=== PATIENT | female | born 1950 | race Caucasian/White ===

== ENCOUNTER 2019-08-22 08:07 | Outpatient (CLI) | payer OTHER, SELFPAY ==
--- NOTE | ~2019-08-22 | MM_ITS ---
EXAMINATION: MM screening [facility] BI w radha HISTORY: Screening mammogram TECHNIQUE: Craniocaudal and mediolateral oblique 3-D tomosynthesis images were obtained and synthetic 2-D images were generated. CAD analysis was submitted and interpreted. COMPARISON: 06/19/2018, 06/01/2017, 03/05/2014 bilateral digital screening mammogram examinations BREAST PARENCHYMAL COMPOSITION: The breasts are almost entirely fatty. FINDINGS: Biopsy marker on each side; history of prior bilateral benign breast biopsies. There is n o evidence of suspicious mass, calcification, or architectural distortion to suggest malignancy in ei ther breast. There has been no suspicious interval change. IMPRESSION: 1. No mammographic evidence of malignancy. 2. Recommend routine screening mammography in one year. BI-RADS Category 1: Negative Reviewed, dictated and finalized at location A.
== END 2019-08-22 08:08 | disposition home or self-care (01) ==
LOC: ANHIMG 08:12
PROVIDERS: PCP Internal Medicine; Visit Provider Internal Medicine
DX: Z12.31 Encounter for screening mammogram for malignant neoplasm of breast (principal)
CPT/HCPCS: 77063; 77067

== ENCOUNTER 2019-11-18 14:41 | Outpatient (CLI) | payer OTHER, SELFPAY ==
--- NOTE | ~2019-11-18 | US_ITS ---
EXAMINATION: US renal BI EXAM DATE: 11/18/2019 15:08 INDICATION: Left-sided abdominal pain. TECHNIQUE: Multiple grayscale and Doppler images of the kidneys were obtained (by a technologist who performed the scan) and subsequently reviewed. There is no prior study for comparison. FINDINGS: Right kidney: There is normal contour and echogenicity. It measures 10.3 x 5.0 x 5.2 centimeters. T here are no focal renal lesions identified. There is no hydronephrosis. Left kidney: There is normal contour and echogenicity. It measures 12.3 x 5.6 x 6.8 centimeters. Th ere are no focal renal lesions identified. There is no hydronephrosis. Bladder unremarkable. Bilateral ureteral jets seen. IMPRESSION: 1. Sonographically unremarkable kidneys. Reviewed, dictated and finalized at location B.
[2019-11-18 15:03] LABS: Alanine Aminotransferase 16 U/L (4-35); Albumin Level 4.2 g/dL (3.5-5.1); Alkaline Phosphatase 89 U/L (38-126); Anion Gap 9 mmol/L (8-16); Aspartate Amino Transferase 23 U/L (14-36); Bilirubin,Total 0.3 mg/dL (0.2-1.3); Blood Urea Nitrogen 36 mg/dL (7-17); Calcium 9.5 mg/dL (8.4-10.2); Carbon Dioxide 23 mmol/L (22-30); Chloride 103 mmol/L (98-107); Estimated Glomerular Filt Rate 37; Glucose 100 mg/dL (65-105); Potassium 4.5 mmol/L (3.4-5.0); Sodium 135 mmol/L (137-145)
== END 2019-11-18 14:42 | disposition home or self-care (01) ==
PROVIDERS: PCP Internal Medicine; Visit Provider Nurse Practitioner
DX: R73.02 Impaired glucose tolerance (oral) (principal); R10.9 Unspecified abdominal pain
CPT/HCPCS: 36415; 76775; 80053

== ENCOUNTER 2020-01-05 10:42 | Outpatient (CLI) | payer OTHER, SELFPAY ==
[2020-01-05 11:41] LABS: Hematocrit 38.4 % (37.0-47.0); Hemoglobin 12.9 g/dL (12.0-15.0); Mean Corpuscular HGB Conc 33.6 g/dl (32-36); Mean Corpuscular Hemoglobin 29.8 pg (26-34); Mean Corpuscular Volume 88.7 fl (80-100); Mean Platelet Volume 9.4 fl (7.4-10.4); Platelet Count Result 282 k/mm3 (150-375); Red Blood Count 4.33 M/mm3 (4.2-5.4); White Blood Count 9.9 K/mm3 (4.5-10.0)
[2020-01-05 11:44] LABS: Add Urine Microscopic? YES; Appearance Urine Cloudy (Clear); Bilirubin Urine Negative (Negative); Blood Urine Negative (Negative); Color Urine Yellow (Yellow); Glucose Urine UA Negative (Negative); Hyaline Casts Urine 20-29 /lpf; Ketones Urine Negative (Negative); Leukocyte Esterase Ur 1+ LEU/UL (NEGATIVE); Mucus Urine Rare /lpf; Nitrate Urine Negative (Negative); Protein Urine Negative (Negative); Specific Grav Ur 1.018 (1.001-1.035); Squamous Epithelial Cell Urine Many /hpf (Few); Urobilinogen Urine Negative mg/dL (<2.0)
[2020-01-05 11:47] LABS: Creatinine Urine 164.6 mg/dL; Total Protein Urine Random 9 mg/dL
[2020-01-05 11:51] LABS: Anion Gap 9 mmol/L (8-16); Blood Urea Nitrogen 30 mg/dL (7-17); Calcium 9.1 mg/dL (8.4-10.2); Carbon Dioxide 25 mmol/L (22-30); Chloride 106 mmol/L (98-107); Estimated Glomerular Filt Rate > 60; Glucose 94 mg/dL (65-105); Phosphorus 3.7 mg/dL (2.5-4.5); Potassium 4.2 mmol/L (3.4-5.0); Sodium 140 mmol/L (137-145)
[2020-01-05 11:58] LABS: Complement C3 133 mg/dL (88-165)
[2020-01-05 12:12] LABS: Erythrocyte Sedimentation Rate 30 mm/hr (0-20)
[2020-01-07 13:01] LABS: Complement Total CH50 >60 U/mL (31-60)
[2020-01-09 00:13] LABS: Kappa\\Lambda Light Chains 1.16 (0.26-1.65); Lambda Light Chain 19.8 mg/L (5.7-26.3)
== END 2020-01-05 10:43 | disposition home or self-care (01) ==
LOC: ANHLAB 10:52
PROVIDERS: PCP Internal Medicine; Visit Provider Internal Medicine Nephrology
DX: R94.4 Abnormal results of kidney function studies (principal)
CPT/HCPCS: 36415; 80069; 81001; 82570; 83883; 84156; 85027; 85652; 86038; 86160; 86162; 86334

== ENCOUNTER 2020-01-07 09:04 | Outpatient (NON) | payer OTHER, SELFPAY | END 2020-01-07 09:05 | PROVIDERS: PCP Internal Medicine; Referring Provider Internal Medicine; Visit Provider Internal Medicine Nephrology | DX: R94.4 Abnormal results of kidney function studies (principal) | CPT/HCPCS: 86335 ==

== ENCOUNTER 2020-04-01 09:13 | Outpatient (CLI) | payer OTHER, SELFPAY ==
[2020-04-01 10:00] LABS: Creatinine Urine 139.3 mg/dL; Total Protein Urine Random 9 mg/dL; Ur Ttl Prot Creatinine Ratio 0.06 mg/mg (0-0.20)
[2020-04-01 10:03] LABS: Anion Gap 6 mmol/L (8-16); Blood Urea Nitrogen 29 mg/dL (7-17); Carbon Dioxide 28 mmol/L (22-30); Chloride 105 mmol/L (98-107); Estimated Glomerular Filt Rate > 60; Glucose 106 mg/dL (65-105); Potassium 4.2 mmol/L (3.4-5.0); Sodium 139 mmol/L (137-145)
== END 2020-04-01 09:14 | disposition home or self-care (01) ==
LOC: ANHLAB 09:17
PROVIDERS: PCP Internal Medicine; Visit Provider Internal Medicine Nephrology
DX: R94.4 Abnormal results of kidney function studies (principal)
CPT/HCPCS: 36415; 80069; 82570; 84156

== ENCOUNTER 2020-05-03 10:18 | Outpatient (CLI) | payer OTHER, SELFPAY ==
[2020-05-03 11:19] LABS: Hemoglobin A1C 5.2 % (<5.7)
[2020-05-03 11:20] LABS: Cholesterol 242 mg/dL (0-200); HDL Direct 34 mg/dL; Triglycerides 398 mg/dL (<150)
[2020-05-03 11:31] LABS: LDL Cholesterol Direct 140 mg/dL
== END 2020-05-03 10:19 | disposition home or self-care (01) ==
PROVIDERS: PCP Internal Medicine; Visit Provider Nurse Practitioner
DX: R73.02 Impaired glucose tolerance (oral) (principal); E78.5 Hyperlipidemia, unspecified
CPT/HCPCS: 36415; 80061; 83036

== ENCOUNTER 2020-09-01 12:08 | Outpatient (CLI) | payer OTHER, SELFPAY ==
--- NOTE | ~2020-09-01 | XR_ITS ---
EXAMINATION: XR_CERV2-3V_CR EXAM DATE: 09/01/2020 12:28 INDICATION: Cervicalgia. TECHNIQUE: Cervical spine frontal, lateral, lateral swimmers, and open-mouth odontoid projections. C omparison is made to prior examination from 02/26/2008. FINDINGS: There is moderate disc disease at C4-5 and C5-6. There is mild reversal of the normal cerv ical lordosis which may be degenerative, positional or spasm. There is 2 mm retrolisthesis C4 on C5. The vertebral bodies are otherwise aligned. The odontoid process is intact. The lateral masses of C 1 line up with C2. Prevertebral soft tissue and pre-dens space are within normal limits. There is mod erate cervical arthropathy overall, with evidence of some amount of neural foraminal stenosis C4-C7. There is been progression in these degenerative changes compared to 2007. IMPRESSION: 1. Up to moderate cervical spondylosis. 2. Reversal normal cervical lordosis. Reviewed, dictated and finalized at location B.
== END 2020-09-01 12:09 | disposition home or self-care (01) ==
PROVIDERS: PCP Internal Medicine; Visit Provider Nurse Practitioner
DX: M54.2 Cervicalgia (principal); M47.812 Spondylosis without myelopathy or radiculopathy, cervical region; M53.82 Other specified dorsopathies, cervical region
CPT/HCPCS: 72040

== ENCOUNTER 2020-10-06 09:56 | Outpatient (CLI) | payer OTHER, SELFPAY ==
[2020-10-06 10:39] LABS: Alanine Aminotransferase 14 U/L (4-35); Albumin Level 4.3 g/dL (3.5-5.1); Alkaline Phosphatase 110 U/L (38-126); Anion Gap 11 mmol/L (8-16); Aspartate Amino Transferase 26 U/L (14-36); Bilirubin,Total 0.5 mg/dL (0.2-1.3); Blood Urea Nitrogen 38 mg/dL (7-17); Calcium 9.3 mg/dL (8.4-10.2); Carbon Dioxide 23 mmol/L (22-30); Chloride 105 mmol/L (98-107); Cholesterol 299 mg/dL (0-200); Estimated Glomerular Filt Rate 41; Glucose 112 mg/dL (65-105); HDL Direct 40 mg/dL; Potassium 4.1 mmol/L (3.4-5.0); Sodium 139 mmol/L (137-145); Triglycerides 293 mg/dL (<150)
[2020-10-06 10:47] LABS: Hemoglobin A1C 5.5 % (<5.7)
[2020-10-06 10:49] LABS: Microalbumin Urine Random 33.8 mg/L (0-16.7)
[2020-10-06 10:49] LABS: LDL Cholesterol Direct 135 mg/dL
[2020-10-06 11:18] LABS: Creatinine Urine 353.5 mg/dL
== END 2020-10-06 09:57 | disposition home or self-care (01) ==
LOC: ANHLAB 09:59
PROVIDERS: PCP Internal Medicine; Visit Provider Nurse Practitioner
DX: R73.02 Impaired glucose tolerance (oral) (principal); E78.5 Hyperlipidemia, unspecified; E55.9 Vitamin D deficiency, unspecified; F32.9 Major depressive disorder, single episode, unspecified
CPT/HCPCS: 36415; 80053; 80061; 82043; 82306; 83036; 84443

== ENCOUNTER 2020-10-19 07:50 | Outpatient (CLI) | payer OTHER, SELFPAY ==
--- NOTE | ~2020-10-19 | MM_ITS ---
EXAMINATION: MM screening [facility] BI w radha HISTORY: Screening TECHNIQUE: Craniocaudal and mediolateral oblique 3-D tomosynthesis images were obtained and synthetic 2-D images were generated. CAD analysis was submitted and interpreted. COMPARISON: Comparison to multiple prior studies sequentially, with oldest reviewed study dated 02/01. BREAST PARENCHYMAL COMPOSITION: There are scattered areas of fibroglandular density. FINDINGS: There is no evidence of suspicious mass, calcification, or architectural distortion to sugg est malignancy in either breast. There has been no suspicious interval change. IMPRESSION: 1. No mammographic evidence of malignancy. 2. Recommend routine screening mammography in one year. BI-RADS Category 1: Negative Reviewed, dictated and finalized at location A.
--- NOTE | ~2020-10-19 | DEXA_ITS ---
Bone Density Report Name: Sarika Arora Age: 70 Sex: Female Ethnicity: White Date of : 1950 Indication: postmenopausal; height loss; hysterectomy; Referring Provider: Juana Sevilla Study: Bone densitometry was performed. Exam Date: October 19, 2020 Accession number: [id number] Bone Density: Region BMD T-score Z-score Classification AP Spine (L1, L2, L3) 1.123 1.0 3.0 Normal Femoral Neck (Left) 0.718 -1.2 0.6 Osteopenia Total Hip (Left) 0.975 0.3 1.7 Normal Total Hip Bilateral Avg 0.952 0.1 1.5 Normal Femoral Neck (Right) 0.659 -1.7 0.0 Osteopenia Total Hip (Right) 0.927 -0.1 1.3 Normal World Health Organization criteria for BMD impression classify patients as: Normal (T-score at or above -1.0), Osteopenia (T-score between -1.0 and -2.5), or Osteoporosis (T-score at or below -2.5). 10-year Fracture Risk(1): Major Osteoporotic Fracture 9.4% Hip Fracture 1.4% Reported Risk Factors: [place] (), Neck BMD=0.659, BMI=37.8 (1) FRAX(R) Version 3.08. Fracture probability calculated for an untreated patient. Fracture probability may be lower if the patient has received treatment. Previous Exams: Region Exam Age BMD T-score BMD Change BMD Change Date g/cm2 vs Baseline vs Previous AP Spine(L1, L2, L3) 10/19/2020 70 1.123 1.0 0.072(6.8%)# -0.013(-1.2%) 04/23/2018 67 1.137 1.1 0.085(8.1%)# 0.085(8.1%)# 11/28/2005 55 1.052 0.3 Total Hip(Left) 10/19/2020 70 0.975 0.3 -0.018(-1.8%)# -0.064(-6.1%)* 04/23/2018 67 1.039 0.8 0.046(4.6%)# 0.046(4.6%)# 11/28/2005 55 0.993 0.4 Total Hip(Right) 10/19/2020 70 0.927 -0.1 -0.025(-2.7%)# -0.025(-2.6%) 04/23/2018 67 0.952 0.1 -0.001(-0.1%)# -0.001(-0.1%)# 11/28/2005 55 0.953 0.1 *Denotes significance at 95% confidence level, LSC for AP Spine = 0.022 g/cm2, LSC for Total Hip = 0.027 g/cm2 Clinical Information Provided by Patient: Has used the following medications: Vitamin D Has the following medical conditions: Hysterectomy Patient maximum height was 62 Menopause Age: 43 No regular weight bearing exercise Does not regularly consume dairy products Onset of menses at age 15 Number of children 3 Impression: The patient has low bone mass, based on the Right Femoral Neck T-score. The patient has an estimated ten-year risk of hip fracture of 1.4% and an estimated ten-year risk of major fracture of 9.4%, based on the WHO FRAX algorith
== END 2020-10-19 07:51 | disposition home or self-care (01) ==
PROVIDERS: PCP Internal Medicine; Visit Provider Nurse Practitioner
DX: Z12.31 Encounter for screening mammogram for malignant neoplasm of breast (principal); Z78.0 Asymptomatic menopausal state; M85.852 Other specified disorders of bone density and structure, left thigh; M85.851 Other specified disorders of bone density and structure, right thigh
CPT/HCPCS: 77063; 77067; 77080

== ENCOUNTER 2020-12-22 08:33 | Emergency (ER) | payer OTHER, SELFPAY ==
[2020-12-22] VITALS (8 sets, daily range): BP systolic 90–120; BP diastolic 57–65; PULSE 63–91; RESP 12–20; TEMP 36.8; O2SAT 95–99
--- NOTE | ~2020-12-22 | CT_ITS ---
EXAMINATION: CT abdomen pelvis w con DATE: 12/22/2020 10:24 INDICATION: Lower abdominal pain, nausea, diarrhea. History of diverticulitis. TECHNIQUE: Computed tomography (CT) of the abdomen and pelvis was performed with 100 cc Omnipaque 350 intravenous contrast. The dose-length product was 1197.88 mGy-cm. Automated exposure control and ite rative reconstruction technique were employed. COMPARISON: CT dated 09/05/2016 FINDINGS: Basilar dependent atelectasis. Heart size is normal. No significant pleural or pericardial effusion. There is a 9 mm left lower lobe nodule which is stable compared with 09/05/2026. The liver, spleen, pancreas, adrenal glands and kidneys are unremarkable. Gallbladder is present. The re is acute sigmoid diverticulitis. No evidence for perforation or abscess. Nonobstructive bowel gas pattern. No free air. There are surgical changes of the lower lumbar spine. IMPRESSION: 1. Acute sigmoid diverticulitis. 2: Stable 9 mm left lower lobe nodule, likely benign. Reviewed, dictated and finalized at location A.
[2020-12-22 08:52] LABS: Add Urine Microscopic? NO; Appearance Urine Clear (Clear); Bilirubin Urine Negative (Negative); Blood Urine Negative (Negative); Color Urine Yellow (Yellow); Glucose Urine UA Negative (Negative); Ketones Urine Negative (Negative); Leukocyte Esterase Ur Negative LEU/UL (Negative); Nitrate Urine Negative (Negative); Protein Urine Negative (Negative); Specific Grav Ur 1.023 (1.001-1.035); Urobilinogen Urine Negative mg/dL (<2.0)
[2020-12-22 09:00] LABS: Basophils Absolute Auto 0.1 K/mm3 (0.0-0.1); Basophils Percent Auto 0.4 % (0.2-1.2); Eosinophils Absolute Auto 0.3 K/mm3 (0-0.3); Eosinophils Percent Auto 1.9 % (0-4.4); Hematocrit 38.8 % (37.0-47.0); Hemoglobin 13.1 g/dL (12.0-15.0); Immature Granulocyte Absolute 0.06 K/mm3 (0.00-0.031); Immature Granulocyte Percent A 0.4 % (0-0.5); Lymphocytes Absolute Auto 3.34 K/mm3 (0.9-3.2); Lymphocytes Percent Auto 22.3 % (18.3-44.2); Mean Corpuscular HGB Conc 33.8 g/dl (32-36); Mean Corpuscular Hemoglobin 29.9 pg (26-34); Mean Corpuscular Volume 88.6 fl (80-100); Mean Platelet Volume 9.1 fl (7.4-10.4); Monocytes Absolute Auto 0.9 K/mm3 (0.1-0.6); Neutrophils Absolute Auto 10.4 K/mm3 (1.3-6.7); Platelet Count Result 347 k/mm3 (150-375); Red Blood Count 4.38 M/mm3 (4.2-5.4); Red Cell Distribution Width 12.9 % (11.5-14.5)
[2020-12-22 09:12] LABS: Alanine Aminotransferase 15 U/L (4-35); Albumin Level 4.5 g/dL (3.5-5.1); Alkaline Phosphatase 112 U/L (38-126); Anion Gap 10 mmol/L (8-16); Aspartate Amino Transferase 20 U/L (14-36); Bilirubin,Total 0.3 mg/dL (0.2-1.3); Blood Urea Nitrogen 36 mg/dL (7-17); Calcium 9.7 mg/dL (8.4-10.2); Carbon Dioxide 22 mmol/L (22-30); Chloride 107 mmol/L (98-107); Estimated CRCL calculation 50 ml/min; Estimated Glomerular Filt Rate 55; Glucose 107 mg/dL (65-110); Lipase 139 U/L (23-300); Potassium 4.1 mmol/L (3.4-5.0); Sodium 139 mmol/L (137-145)
[2020-12-22] MEDS: FAMOTIDINE 20 MG/2 ML VIAL IV PUSH (10:03)
[2020-12-22] MEDS: ONDANSETRON INJ 4 MG/2 ML VIAL IV PUSH (10:03)
[2020-12-22] MEDS: SODIUM CHLORIDE 0.9% IV 1,000 ML 999 ML IV CONT (10:03)
--- NOTE | 2020-12-22 10:25 | ED.GENADULT ---
HPI - General Adult General Chief complaint: Abdominal Pain <DARNELL Taylor Last Filed: 12/22/20 11:25> Stated complaint: abd pain <DARNELL Taylor Last Filed: 12/22/20 11:25> Time Seen by Provider: 12/22/20 09:14 <DARNELL Taylor Last Filed: 12/22/20 11:25> Source: patient and RN notes reviewed <DARNELL Taylor Last Filed: 12/22/20 11:25> Mode of arrival: ambulatory <DARNELL Taylor Last Filed: 12/22/20 11:25> Limitations: no limitations <DARNELL Taylor Last Filed: 12/22/20 11:25> History of Present Illness HPI narrative: Patient is a 70-year-old female who presents to emergency department for evaluation of left lower abdominal pain noting history of diverticulitis she notes associated nausea notes sharp pain to the left abdomen states that this is consistent with prior diverticulitis she notes some constipation diarrhea denies any rectal bleeding or melena or other complaints presents nondistressed appears slightly uncomfortable has not been seen for this nor she taken anything for it <DARNELL Taylor Last Filed: 12/22/20 11:25> Related Data Home medications: Home Medications Medication Instructions Recorded Confirmed acetaminophen 500 mg tablet 500 mg PO Q6H PRN 10/06/20 cholecalciferol (vitamin D3) 125 125 mcg PO DAILY 10/06/20 mcg (5,000 unit) capsule ibuprofen 200 mg tablet 200 mg PO Q6H PRN 10/06/20 docusate sodium 50 mg capsule 50 mg PO DAILY 10/13/20 fexofenadine 60 mg tablet 60 mg PO Q12H PRN 10/13/20 <DARNELL Taylor Last Filed: 12/22/20 11:25> Allergies/adverse reactions: Allergies Allergy/AdvReac Type Severity Reaction Status Date / Time No Known Allergies Allergy Verified 10/13/20 12:45 <DARNELL Taylor Last Filed: 12/22/20 11:25> Review of Systems Review of Systems: All systems reviewed & are unremarkable except as noted in HPI and below <DARNELL Taylor Last Filed: 12/22/20 11:25> [facility] Past Medical History Medical History: Medical History Left flank pain Postmenopausal Screening for colon cancer Screening for colon cancer <Oscar Graham PA-C - Last Filed: 12/22/20 11:25> Surgical History Surgical History: Surgical History History of back surgery <Oscar Graham PA-C - Last Filed: 12/22/20 11:25> Family History Family History: Family History Father Family history of throat cancer Patient's father is Sibling Patient's brother is Acute myocardial infarction Other Diabetes mellitus Family history of cardiovascular disease Family history of malignant neoplasm Hypertension <Oscar Graham PA-C - Last Filed: 12/22/20 11:25> Social History Social History: Social History Smoking packs per day: 1 Smoking cigarettes per day: 20.0 Years smoked: 15 Smoking pack-years: 15.00 Smoking status: Former smoker Tobacco type: cigarettes Second hand tobacco smoke exposure: Yes Smoking end date: 04/02/87 Alcohol intake: current Alcohol use details: Social <Oscar Graham PA-C - Last Filed: 12/22/20 11:25> Exam Narrative: GENERAL: Well-appearing, well-nourished, and in no acute distress. HEAD: Normocephalic, atraumatic. EYES: PERRLA and EOMI. ENT: Nares clear, no rhinorrhea or epistaxis. Mucous membranes moist. NECK: Supple. No adenopathy or masses. CHEST: Clear to auscultation. No respiratory distress. No wheezes rales or rhonchi HEART: Regular rate and rhythm. No murmur heard. Normal peripheral pulses. ABDOMEN: Soft, left lower quadrant tenderness to palpation with voluntary guarding, nondistended EXTREMI
== END 2020-12-22 11:34 | disposition home or self-care (01) ==
PROVIDERS: Emergency Provider General Practice; PCP Internal Medicine
DX: K57.92 Diverticulitis of intestine, part unspecified, without perforation or abscess without bleeding (principal); Z87.891 Personal history of nicotine dependence
CPT/HCPCS: 36415; 74177; 80053; 81003; 83690; 85025; 96361; 96374; 96375; 99284; J0131; J2405; J7030; Q9967

== ENCOUNTER 2021-01-19 01:19 | Day surgery (SDC) | payer OTHER, SELFPAY ==
[2021-01-07 08:15] VITALS: BMI 34.8
--- NOTE | 2021-01-18 10:30 | WPDANESEPPF ---
Anes - Initial Pre Proc Eval Procedure: Operation Date: 01/19/21 13:00 Proposed Procedures p Colonoscopy - Isaias Lechuga MD Date/Time: 01/18/21 10:30 Surgeon: Isaias Lechuga MD Pre Op Diagnosis: diverticulitis Patient Data Age: 70 Gender: F Height: 1.57 m Weight: 86.4 kg Allergies Allergy/AdvReac Type Severity Reaction Status Date / Time No Known Allergies Allergy Verified 01/19/21 12:21 Home Medications Medication Instructions Recorded Confirmed Type omega-3 fatty acids 1,000 mg 1,000 mg PO BID #180 cap 05/03/20 01/19/21 Rx capsule lisinopril 20 See Rx Instructions .ROUTE 07/26/20 01/19/21 Rx mg-hydrochlorothiazide 25 mg tablet .COMPLEX #180 tablet escitalopram oxalate 20 mg tablet See Rx Instructions .ROUTE 09/30/20 01/19/21 Rx .COMPLEX #90 tablet omeprazole 20 mg capsule,delayed See Rx Instructions .ROUTE 09/30/20 01/19/21 Rx release .COMPLEX #90 cap acetaminophen 500 mg tablet 500 mg PO Q6H PRN 10/06/20 01/19/21 History cholecalciferol (vitamin D3) 125 125 mcg PO DAILY 10/06/20 01/19/21 History mcg (5,000 unit) capsule ibuprofen 200 mg tablet 200 mg PO Q6H PRN 10/06/20 01/19/21 History fexofenadine 60 mg tablet 60 mg PO Q12H PRN 10/13/20 01/19/21 History methocarbamol 750 mg tablet 750 mg PO TID PRN #45 tablet 10/13/20 01/19/21 Rx rosuvastatin 20 mg tablet 20 mg PO DAILY #30 tablet 10/13/20 01/19/21 Rx calcium carbonate 500 mg calcium 500 mg PO DAILY #90 tablet 10/21/20 01/19/21 Rx (1,250 mg) tablet Patient hx anesthesia problems: none Family hx anesthesia problems: none Results Review: All pre-operative results and documents have been reviewed as part of the pre-operative evaluation. [facility] Past Medical History Medical History (Updated 01/18/21 @ 10:31 by Natan Gutierrez DO) Essential (primary) hypertension GERD (gastroesophageal reflux disease) Left flank pain RAZA (obstructive sleep apnea) Postmenopausal Pure hypercholesterolemia Screening for colon cancer Screening for colon cancer Surgical History Surgical History History of back surgery Family History Family History Father Family history of throat cancer Patient's father is Sibling Patient's brother is Acute myocardial infarction Other Diabetes mellitus Family history of cardiovascular disease Family history of malignant neoplasm Hypertension Social History Social History Smoking packs per day: 1 Smoking cigarettes per day: 20.0 Years smoked: 10 Smoking pack-years: 10.00 Smoking status: Former smoker Tobacco type: cigarettes Second hand tobacco smoke exposure: Yes Smoking end date: 04/02/87 Alcohol intake: current Alcohol use details: Social Living arrangements: alone Spiritual care concerns: No Anes - Eval Final PreProcedure Day of Procedure 01/18/21 10:30 Patient weight: obese Heart: regular rate and rhythm Lungs: clear to auscultation and normal air movement Airway: Mallampati scale class II Neurological: alert and oriented Last oral intake: >/= 8 hours ASA classification: III Emergent: no Anesthetic plan: proceed Anesthesia type and monitoring: general GIVS and standard monitoring Results Review: All pre-operative results and documents have been reviewed as part of the pre-operative evaluation. Informed Consent: The patient's anesthetic plan and its attendant risks and benefits were discussed with the patient/family/POA. Questions were solicited and answers provided to the satisfaction of the patient/family/POA.
[2021-01-19 12:22] VITALS: BP 133/79; PULSE 84; RESP 20; TEMP 35.9; O2SAT 97
[2021-01-19] MEDS: LACTATED RINGERS 1,000 ML 150 ML IV CONT (12:37)
--- NOTE | 2021-01-19 13:26 | PM.HPGS ---
History of Present Illness History of Present Illness Consent: Risks, benefits, and alternatives have been discussed and questions answered. Patient agrees to proceed with procedure. Chief complaint: diverticulitis Narrative: Sarika Arora is a 70 year old female with colon polyp in 2017, also recent diverticulitis flare-up treated medically Review of Systems Constitutional: Constitutional: Denies headache(s) and Denies weakness Eyes: Eyes: Denies blurry vision ENT: Reports Normal hearing present, Denies headache(s) and Denies neck pain Cardiovascular: Cardiovascular: Denies chest pain and Denies dyspnea Respiratory: Respiratory: Denies dyspnea Gastrointestinal: Gastrointestinal: Reports no additional gastrointestinal complaints Genitourinary: Genitourinary: Denies dysuria Musculoskeletal: Musculoskeletal: Denies neck pain Integumentary/Breasts: Skin/Breast: Denies dry skin Neurologic: Reports Normal hearing present, Denies headache(s) and Denies weakness Psychiatric: Psychiatric: Denies anxiety Endocrine: Endocrine: Denies change in body appearance Hematologic/Lymphatic: Hematologic/Lymphatic: Denies easy bleeding Allergic/Immunologic: Allergic/Immunologic: Denies urticaria PMFSH Past Medical History Medical History (Updated 01/19/21 @ 13:27 by Isaias Lechuga MD) Adenomatous colon polyp Essential (primary) hypertension GERD (gastroesophageal reflux disease) Left flank pain RAZA (obstructive sleep apnea) Postmenopausal Pure hypercholesterolemia Screening for colon cancer Screening for colon cancer Surgical History Surgical History History of back surgery Family History Family History Father Family history of throat cancer Patient's father is Sibling Patient's brother is Acute myocardial infarction Other Diabetes mellitus Family history of cardiovascular disease Family history of malignant neoplasm Hypertension Social History Social History Smoking packs per day: 1 Smoking cigarettes per day: 20.0 Years smoked: 10 Smoking pack-years: 10.00 Smoking status: Former smoker Tobacco type: cigarettes Second hand tobacco smoke exposure: Yes Smoking end date: 04/02/87 Alcohol intake: current Alcohol use details: Social Living arrangements: alone Spiritual care concerns: No Meds Home Medications and Allergies Home Medications Medication Instructions Recorded Confirmed Type omega-3 fatty acids 1,000 mg 1,000 mg PO BID #180 cap 05/03/20 01/19/21 Rx capsule lisinopril 20 See Rx Instructions .ROUTE 07/26/20 01/19/21 Rx mg-hydrochlorothiazide 25 mg tablet .COMPLEX #180 tablet escitalopram oxalate 20 mg tablet See Rx Instructions .ROUTE 09/30/20 01/19/21 Rx .COMPLEX #90 tablet omeprazole 20 mg capsule,delayed See Rx Instructions .ROUTE 09/30/20 01/19/21 Rx release .COMPLEX #90 cap acetaminophen 500 mg tablet 500 mg PO Q6H PRN 10/06/20 01/19/21 History cholecalciferol (vitamin D3) 125 125 mcg PO DAILY 10/06/20 01/19/21 History mcg (5,000 unit) capsule ibuprofen 200 mg tablet 200 mg PO Q6H PRN 10/06/20 01/19/21 History fexofenadine 60 mg tablet 60 mg PO Q12H PRN 10/13/20 01/19/21 History methocarbamol 750 mg tablet 750 mg PO TID PRN #45 tablet 10/13/20 01/19/21 Rx rosuvastatin 20 mg tablet 20 mg PO DAILY #30 tablet 10/13/20 01/19/21 Rx calcium carbonate 500 mg calcium 500 mg PO DAILY #90 tablet 10/21/20 01/19/21 Rx (1,250 mg) tablet Allergies Allergy/AdvReac Type Severity Reaction Status Date / Time No Known Allergies Allergy Verified 01/19/21 12:21 Vital Signs Vital Signs - 24 hr 01/19/21 12:22 Temperature 96.7 F L Pulse Rate 84 Respiratory Rate 20 Blood Pressure 133/79 Pulse Oximetry 97 Exam C
[2021-01-19 13:47] VITALS: BP 110/68; PULSE 71; RESP 24; O2SAT 96
[2021-01-19 13:57] VITALS: BP 113/56; PULSE 67; RESP 23; O2SAT 97
[2021-01-19 14:07] VITALS: BP 114/56; PULSE 63; RESP 16; O2SAT 99
== END 2021-01-19 14:22 | disposition home or self-care (01) ==
PROVIDERS: PCP Internal Medicine; Visit Provider Internal Medicine Gastroenterology
PROC: 0DJD8ZZ Inspection of Lower Intestinal Tract, Via Natural or Artificial Opening Endoscopic (ICD-10-PCS; CPT 45378; principal; 2021-01-19 13:00)
DX: Z09 Encounter for follow-up examination after completed treatment for conditions other than malignant neoplasm (principal); K57.30 Diverticulosis of large intestine without perforation or abscess without bleeding; K64.8 Other hemorrhoids; Z86.010 Personal history of colon polyps; Z87.19 Personal history of other diseases of the digestive system; I10 Essential (primary) hypertension; K21.9 Gastro-esophageal reflux disease without esophagitis; G47.33 Obstructive sleep apnea (adult) (pediatric); E78.00 Pure hypercholesterolemia, unspecified; Z87.891 Personal history of nicotine dependence; E66.9 Obesity, unspecified; Z68.36 Body mass index [BMI] 36.0-36.9, adult
CPT/HCPCS: 45378; J2704; J7120

== ENCOUNTER 2021-03-28 07:52 | Outpatient (CLI) | payer OTHER, SELFPAY ==
[2021-03-28 08:24] LABS: Alanine Aminotransferase 21 U/L (4-35); Albumin Level 4.1 g/dL (3.5-5.1); Alkaline Phosphatase 89 U/L (38-126); Anion Gap 10 mmol/L (8-16); Aspartate Amino Transferase 26 U/L (14-36); Bilirubin,Total 0.5 mg/dL (0.2-1.3); Blood Urea Nitrogen 38 mg/dL (7-17); Calcium 9.3 mg/dL (8.4-10.2); Carbon Dioxide 19 mmol/L (22-30); Chloride 110 mmol/L (98-107); Cholesterol 170 mg/dL (0-200); Estimated Glomerular Filt Rate 55; Glucose 124 mg/dL (65-110); HDL Direct 38 mg/dL; Potassium 4.4 mmol/L (3.4-5.0); Sodium 139 mmol/L (137-145); Triglycerides 278 mg/dL (<150)
[2021-03-28 08:34] LABS: LDL Cholesterol Direct 76 mg/dL
[2021-03-28 09:17] LABS: Vitamin D 25 Hydroxy 32.6 ng/mL
== END 2021-03-28 07:53 | disposition home or self-care (01) ==
PROVIDERS: PCP Internal Medicine; Referring Provider Psychiatry & Neurology Psychiatry; Visit Provider Nurse Practitioner
DX: F32.A Depression, unspecified (principal); E78.00 Pure hypercholesterolemia, unspecified; E78.5 Hyperlipidemia, unspecified; E55.9 Vitamin D deficiency, unspecified
CPT/HCPCS: 36415; 80053; 80061; 82306; 84443

== ENCOUNTER 2021-04-27 13:29 | Outpatient (CLI) | payer OTHER, SELFPAY ==
--- NOTE | ~2021-04-27 | CT_ITS ---
EXAMINATION: CT lumbar spine wo con DATE: 04/27/2021 13:46 INDICATION: Lumbar radiculopathy. TECHNIQUE: Computed tomography (CT) of the lumbar spine was performed without intravenous contrast. A utomated exposure control and iterative reconstruction technique were employed. The dose-length produ ct was 1186.89 mGy-cm. COMPARISON: CT abdomen and pelvis 12/22/2020 FINDINGS: There is 10 degrees dextroscoliosis of thoracolumbar spine. There is 3 mm retrolisthesis of L1 on L2 and L3 on L4. There are changes of anterior and posterior fusion procedures from L4 to S1 w ith interbody devices and pedicle screws. There is an electrode in the left S3 neural foramen. There is mildly decreased disc height at L1-L2 and L3-L4. The following disc levels are specifically discus sed: L1-L2: The disc is bulging. There is mild bilateral facet joint osteoarthritis. There is mild bilater al neural foraminal stenosis. There is mild central canal stenosis. L2-L3: There is a left foraminal protrusion. There is severe right and moderate left facet joint oste oarthritis. There is mild left neural foraminal stenosis. There is no central canal stenosis. L3-L4: The disc is bulging. There is severe bilateral facet joint osteoarthritis. There is moderate b ilateral neural foraminal stenosis. There is mild central canal stenosis. L4-L5: There is moderate bilateral facet joint hypertrophy. There is mild bilateral neural foraminal stenosis. There is no central canal stenosis. L5-S1: There is moderate bilateral facet joint hypertrophy. There is mild bilateral neural foraminal stenosis. There is no central canal stenosis. IMPRESSION: 1. Moderate lumbar spondylosis. 2. Anterior and posterior fusion procedures from L4 to S1. 3. Thoracolumbar dextroscoliosis. Reviewed, dictated and finalized at location A. ORATE REPRESENTATIVE
== END 2021-04-27 13:30 | disposition home or self-care (01) ==
LOC: ANHIMG 13:30
PROVIDERS: PCP Internal Medicine; Visit Provider Nurse Practitioner Adult Health
DX: M47.817 Spondylosis without myelopathy or radiculopathy, lumbosacral region (principal); M48.07 Spinal stenosis, lumbosacral region; Z98.1 Arthrodesis status; M41.9 Scoliosis, unspecified
CPT/HCPCS: 72131

== ENCOUNTER 2021-06-15 11:15 | Outpatient (CLI) | payer OTHER, SELFPAY ==
[2021-06-15 11:43] LABS: Anion Gap 6 mmol/L (8-16); Blood Urea Nitrogen 32 mg/dL (7-17); Calcium 8.5 mg/dL (8.4-10.2); Carbon Dioxide 23 mmol/L (22-30); Chloride 107 mmol/L (98-107); Estimated Glomerular Filt Rate 45; Glucose 104 mg/dL (65-110); Potassium 4.7 mmol/L (3.4-5.0); Sodium 136 mmol/L (137-145)
[2021-06-15 12:44] LABS: Hepatitis C Virus Antibody Negative (Negative)
== END 2021-06-15 11:16 | disposition home or self-care (01) ==
PROVIDERS: PCP Internal Medicine; Visit Provider Nurse Practitioner
DX: Z11.59 Encounter for screening for other viral diseases (principal); I10 Essential (primary) hypertension
CPT/HCPCS: 36415; 80048; 86803

== ENCOUNTER 2021-09-13 07:43 | Outpatient (CLI) | payer MEDICARE, SELFPAY ==
[2021-09-13 08:23] LABS: Alanine Aminotransferase 19 U/L (6-35); Albumin Level 3.7 g/dL (3.5-5.1); Alkaline Phosphatase 92 U/L (38-126); Anion Gap 6 mmol/L (8-16); Aspartate Amino Transferase 21 U/L (14-36); Bilirubin,Total 0.3 mg/dL (0.2-1.3); Blood Urea Nitrogen 29 mg/dL (7-17); Calcium 8.6 mg/dL (8.4-10.2); Carbon Dioxide 25 mmol/L (22-30); Chloride 109 mmol/L (98-107); Cholesterol 187 mg/dL (0-200); Estimated Glomerular Filt Rate 49; Glucose 102 mg/dL (65-110); HDL Direct 37 mg/dL; Potassium 4.5 mmol/L (3.4-5.0); Sodium 140 mmol/L (137-145); Triglycerides 245 mg/dL (<150)
[2021-09-13 08:34] LABS: LDL Cholesterol Direct 92 mg/dL
[2021-09-13 08:41] LABS: Vitamin D 25 Hydroxy 32.8 ng/mL
== END 2021-09-13 07:44 | disposition home or self-care (01) ==
PROVIDERS: PCP Internal Medicine; Visit Provider Nurse Practitioner
DX: E78.00 Pure hypercholesterolemia, unspecified (principal); I10 Essential (primary) hypertension; R73.02 Impaired glucose tolerance (oral); F32.A Depression, unspecified; E55.9 Vitamin D deficiency, unspecified
CPT/HCPCS: 36415; 80053; 80061; 82306; 84443

== ENCOUNTER 2021-09-21 07:35 | Outpatient (CLI) | payer MEDICARE, SELFPAY ==
--- NOTE | ~2021-09-21 | XR_ITS ---
EXAMINATION: XR barium swallow modified DATE: 09/21/2021 08:24 INDICATION: Dysphagia, unspecified. TECHNIQUE: The patient was given barium-containing material of multiple consistencies to swallow by t arpita speech pathologist while I performed fluoroscopy. Fluoroscopy exposure time was 1.7 minutes. The n umber of fluoroscopy images saved to the PACS was 1. Dose-area product was 1.23 Gy-cm^2. FINDINGS: There is flash laryngeal penetration with thin liquids. No aspiration. IMPRESSION: 1. Flash laryngeal penetration with thin liquids. No aspiration. 2. Please refer to the speech therapy report for recommendations. Reviewed, dictated and finalized at location A.
--- NOTE | 2021-09-21 08:38 | STOPEVAL ---
MODIFIED BARIUM SWALLOW EVALUATION: Thank you for referring Sarika Arora to [facility].? Attending Provider: Tra Sanchez DO Modified Barium Swallow Evaluation Recent Swallowing History Reports Dysphagia Yes: food gets stuck then goes down the wrong way Onset of Dysphagia 1 month History of Dysphagia No Other Factors Impacting Dysphagia None History of Pneumonia No Reported Difficult Consistencies Solids Intake Method Prior to Swallow Oral Evaluation Diet Prior to Swallow Evaluation Regular, Level 7 Liquid Consistency Prior to Swallow Thin (0) Evaluation Orthodontic/Dental Appliances Full Dentures, Lower,Full Dentures, Upper Consistency Solid Consistency Method of Presentation Spoon Oral Preparatory Symptoms None Oral Phase Symptoms None Pharyngeal Phase Symptoms None Severity of Vallecular Residue None - 0% No Residue Severity of Pyriform Sinus Residue None - 0% No Residue 8 Point Laryngeal Penetration-Aspiration Material Does Not Enter Airway Scale Cervical/Esophageal Symptoms None Mixed Consistency Method of Presentation Spoon Oral Preparatory Symptoms None Oral Phase Symptoms None Pharyngeal Phase Symptoms None Severity of Vallecular Residue None - 0% No Residue Severity of Pyriform Sinus Residue None - 0% No Residue 8 Point Laryngeal Penetration-Aspiration Material Does Not Enter Airway Scale Cervical/Esophageal Symptoms None Pureed Consistency Method of Presentation Spoon Oral Preparatory Symptoms None Oral Phase Symptoms None Pharyngeal Phase Symptoms None Severity of Vallecular Residue None - 0% No Residue Severity of Pyriform Sinus Residue None - 0% No Residue Cervical/Esophageal Symptoms None Thin Uncontrolled 2 Method of Presentation Straw Oral Preparatory Symptoms None Oral Phase Symptoms None Pharyngeal Phase Symptoms Within Functional Limits Severity of Vallecular Residue None - 0% No Residue Severity of Pyriform Sinus Residue None - 0% No Residue 8 Point Laryngeal Penetration-Aspiration Material Enters the Airway, Scale Remains Above Vocal Folds, is Ejected Cervical/Esophageal Symptoms None Thin Uncontrolled 1 Method of Presentation Cup Oral Preparatory Symptoms None Oral Phase Symptoms None Pharyngeal Phase Symptoms Within Functional Limits Severity of Vallecular Residue None - 0% No Residue Severity of Pyriform Sinus Residue None - 0% No Residue 8 Point Laryngeal Penetration-Aspiration Material Enters the Airway, Scale Remains Above Vocal Folds, is
== END 2021-09-21 07:36 | disposition home or self-care (01) ==
LOC: ANHIMG 07:40
PROVIDERS: PCP Internal Medicine; Visit Provider Internal Medicine
DX: R13.10 Dysphagia, unspecified (principal)
CPT/HCPCS: 92611

== ENCOUNTER 2022-01-20 08:58 | Outpatient (CLI) | payer OTHER, SELFPAY ==
--- NOTE | 2022-01-20 | EST_ITS ---
Patient Info Name: Sarika Arora Age: 71 years : 1950 Gender: Female Ht: 62 in Wt: 208 lbs BSA: 2.08 m2 HR: 58 bpm BP: 127 / 59 mmHg Heart Rhythm: Sinus Rhythm Exam Date: 01/20/2022 9:48 AM Exam Location: [facility] Stress Patient Status: Outpatient Admit Date: 01/20/2022 Staff Ordering Physician: David Mcnamara APRN Attending Provider: David Mcnamara APRN Exercise Technologist: Kate Sanabria CT Exercise Physician: Maxim Bryant DO Exam Type: CA stress elizabeth w NM Study Info Indications R07.9 - Chest pain, unspecified A regadenoson stress test was performed. Summary 1. 1. Negative lexiscan stress test for ischemic ST changes by ECG criteria. 2. 2. Stable hemodynamics throughout the test. 3. 3. Nuclear scan to follow and will be reported separately. Please correlate with it. 4. 4. Patient informed of the above results. Protocol: Lexiscan Stress ECG Details Stage: REST Duration (min): 2 min : 47 sec HR (bpm): 59 SBP (mmHg): 127 DBP (mmHg): 59 Stage: REST Duration (min): 5 min : 25 sec HR (bpm): 62 SBP (mmHg): 127 DBP (mmHg): 59 Stage: STAGE 1 Duration (min): 0 min : 59 sec HR (bpm): 76 SBP (mmHg): 130 DBP (mmHg): 50 Stage: RECOVERY Duration (min): 1 min : 0 sec HR (bpm): 80 SBP (mmHg): 130 DBP (mmHg): 50 Stage: RECOVERY Duration (min): 2 min : 0 sec HR (bpm): 75 SBP (mmHg): 130 DBP (mmHg): 50 Stage: RECOVERY Duration (min): 3 min : 0 sec HR (bpm): 76 SBP (mmHg): 115 DBP (mmHg): 51 Stage: RECOVERY Duration (min): 3 min : 17 sec HR (bpm): 75 SBP (mmHg): 115 DBP (mmHg): 51 Rest HR: 62 bpm Peak HR: 81 bpm Rest Sys BP: 127 mmHg Peak Sys BP: 130 mmHg Max Pred HR: 150 bpm % Max Pred HR: 54 % Target HR: 128 bpm Max RPP: 10,530 bpm*mmHg Termination Reason: Completed protocol Cardiac Symptoms: Shortness of breath Total Time: 1 min : 0 sec Rest Khanna BP: 59 mmHg Peak Khanna BP: 50 mmHg Total Dose: 0.4 mg Resting ECG Sinus rhythm. Stress ECG No ST changes. Arrhythmias None. Report Signatures
--- NOTE | ~2022-01-20 | NM_ITS ---
EXAMINATION: NM elizabeth stress w perfusion DATE: 01/20/2022 12:21 INDICATION: Chest pain TECHNIQUE: Rest images were obtained following intravenous administration of 10.3 mCi Tc99m tetrofosm in (Myoview). The patient was infused intravenously with Lexiscan (Regadenoson). Then, 33.7 mCi Tc99m tetrofosmin (Myoview) was administered intravenously, and stress images were obtained. Data was maxi nstructed into short axis and horizontal and vertical long axis SPECT images. Gated SPECT images were also obtained. COMPARISON: None. FINDINGS: There is no definite reversible or fixed perfusion abnormality to suggest ischemia or infar ction. There is normal left ventricular chamber size, wall motion and ejection fraction. Left ventr icular ejection fraction measures >70%. IMPRESSION: 1. Normal myocardial perfusion at rest and during stress. 2. Left ventricular ejection fraction measuring >70%. Reviewed, dictated and finalized at location A.
== END 2022-01-20 08:59 | disposition home or self-care (01) ==
PROVIDERS: PCP Internal Medicine; Visit Provider Nurse Practitioner
DX: R07.9 Chest pain, unspecified (principal)
CPT/HCPCS: 78452; 93017; A9502; J2785

== ENCOUNTER 2022-03-09 17:05 | Outpatient (CLI) | payer OTHER, SELFPAY ==
--- NOTE | ~2022-03-09 | MM_ITS ---
EXAMINATION: MM screening [facility] BI w radha HISTORY: Screening TECHNIQUE: Craniocaudal and mediolateral oblique 3-D tomosynthesis images were obtained and synthetic 2-D images were generated. CAD analysis was submitted and interpreted. COMPARISON: Comparison to multiple prior studies sequentially, with oldest reviewed study dated 02/01. BREAST PARENCHYMAL COMPOSITION: There are scattered areas of fibroglandular density. FINDINGS: There is no evidence of suspicious mass, calcification, or architectural distortion to sugg est malignancy in either breast. There has been no suspicious interval change. IMPRESSION: 1. No mammographic evidence of malignancy. 2. Recommend routine screening mammography in one year. BI-RADS Category 1: Negative Reviewed, dictated and finalized at location A. DARIST
== END 2022-03-09 17:06 | disposition home or self-care (01) ==
LOC: ANHIMG 17:08
PROVIDERS: PCP Internal Medicine; Visit Provider Nurse Practitioner
DX: Z12.31 Encounter for screening mammogram for malignant neoplasm of breast (principal)
CPT/HCPCS: 77063; 77067

== ENCOUNTER 2022-03-29 10:58 | Outpatient (CLI) | payer OTHER, SELFPAY ==
[2022-03-29 11:35] LABS: Alanine Aminotransferase 21 U/L (6-35); Albumin Level 4.4 g/dL (3.5-5.1); Alkaline Phosphatase 97 U/L (38-126); Anion Gap 6 mmol/L (8-16); Aspartate Amino Transferase 22 U/L (14-36); Bilirubin,Total 0.8 mg/dL (0.2-1.3); Blood Urea Nitrogen 22 mg/dL (7-17); Calcium 9.2 mg/dL (8.4-10.2); Carbon Dioxide 26 mmol/L (22-30); Chloride 108 mmol/L (98-107); Cholesterol 284 mg/dL (0-200); Estimated Glomerular Filt Rate 55; Glucose 100 mg/dL (65-110); HDL Direct 48 mg/dL; Potassium 4.7 mmol/L (3.4-5.0); Sodium 140 mmol/L (137-145); Triglycerides 246 mg/dL (<150)
[2022-03-29 11:45] LABS: Hemoglobin A1C 5.5 % (<5.7)
[2022-03-29 11:46] LABS: LDL Cholesterol Direct 165 mg/dL
== END 2022-03-29 10:59 | disposition home or self-care (01) ==
PROVIDERS: PCP Internal Medicine; Visit Provider Internal Medicine
DX: E78.5 Hyperlipidemia, unspecified (principal); I10 Essential (primary) hypertension; E78.00 Pure hypercholesterolemia, unspecified; R73.02 Impaired glucose tolerance (oral)
CPT/HCPCS: 36415; 80053; 80061; 83036

== ENCOUNTER 2022-05-15 09:17 | Outpatient (CLI) | payer OTHER, SELFPAY ==
--- NOTE | ~2022-05-15 | CT_ITS ---
EXAMINATION: CT lumbar spine w con DATE: 05/15/2022 09:58 INDICATION: Back pain. TECHNIQUE: Computed tomography (CT) of the lumbar spine was performed with 100 mL Omnipaque 350 intra venous contrast. Automated exposure control and iterative reconstruction technique were employed. The dose-length product was 1153.11 mGy-cm. COMPARISON: CT lumbar spine 04/27/21 FINDINGS: There is 9 degrees dextrocurvature of lumbar spine. There is 3 mm retrolisthesis of L3 on L 4. There are changes of anterior and posterior fusion procedures from L4 to S1 with interbody devices and pedicle screws. There is mild chronic anterior wedging of T11 and T12 vertebral bodies. There is mildly decreased disc height at L1-L2 and moderately decreased disc height at L3-L4. There is an josefina ctrode in the left S3 neural foramen. The following disc levels are specifically discussed: L1-L2: The disc is bulging. There is mild bilateral facet joint osteoarthritis. There is mild left ne ural foraminal stenosis. There is mild central canal stenosis. L2-L3: The disc is bulging. There is severe right and moderate left facet joint osteoarthritis. There is mild bilateral neural foraminal stenosis. There is mild central canal stenosis. L3-L4: The disc is bulging. There is severe bilateral facet joint osteoarthritis. There is moderate b ilateral neural foraminal stenosis. There is mild central canal stenosis. L4-L5: There is moderate bilateral facet joint hypertrophy. There is mild bilateral neural foraminal stenosis. There is no central canal stenosis. There is posterior decompression. L5-S1: There is moderate bilateral facet joint hypertrophy. There is mild bilateral neural foraminal stenosis. There is no central canal stenosis. There is posterior decompression. IMPRESSION: 1. Moderate lumbar spondylosis, stable from 04/27/2021. 2. Anterior and posterior fusion procedures from L4 to S1. Reviewed, dictated and finalized at location A. 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
[2022-05-15 09:50] LABS: Estimated Glomerular Filt Rate 49
== END 2022-05-15 09:18 | disposition home or self-care (01) ==
PROVIDERS: PCP Internal Medicine; Visit Provider Nurse Practitioner Adult Health
DX: M54.9 Dorsalgia, unspecified (principal); M48.061 Spinal stenosis, lumbar region without neurogenic claudication; M47.816 Spondylosis without myelopathy or radiculopathy, lumbar region; Z98.1 Arthrodesis status
CPT/HCPCS: 72132; Q9967

== ENCOUNTER 2022-06-07 06:57 | Outpatient (CLI) | payer OTHER, SELFPAY ==
[2022-06-07 07:52] LABS: INR 2.7; Prothrombin Time 27.8 Seconds (11.1-14.7)
[2022-06-07 07:55] LABS: Alanine Aminotransferase 29 U/L (6-35); Albumin Level 3.9 g/dL (3.5-5.1); Alkaline Phosphatase 76 U/L (38-126); Anion Gap 4 mmol/L (8-16); Aspartate Amino Transferase 24 U/L (14-36); Bilirubin,Total 0.4 mg/dL (0.2-1.3); Blood Urea Nitrogen 29 mg/dL (7-17); Calcium 8.8 mg/dL (8.4-10.2); Carbon Dioxide 25 mmol/L (22-30); Chloride 108 mmol/L (98-107); Cholesterol 123 mg/dL (0-200); Estimated Glomerular Filt Rate > 60; Glucose 89 mg/dL (65-110); HDL Direct 34 mg/dL; Sodium 137 mmol/L (137-145); Triglycerides 156 mg/dL (<150)
[2022-06-07 08:05] LABS: LDL Cholesterol Direct 62 mg/dL
== END 2022-06-07 06:58 | disposition home or self-care (01) ==
PROVIDERS: PCP Internal Medicine; Visit Provider Internal Medicine Cardiovascular Disease
DX: E78.00 Pure hypercholesterolemia, unspecified (principal); I48.91 Unspecified atrial fibrillation
CPT/HCPCS: 36415; 80053; 80061; 85610

== ENCOUNTER 2022-06-08 14:01 | Outpatient (CLI) | payer OTHER, SELFPAY ==
--- NOTE | 2022-06-08 14:18 | ECHO_ITS ---
Patient Info Name: Sarika Arora Age: 71 years : 1950 Gender: Female Ht: 62 in Wt: 189 lbs BSA: 1.98 m2 HR: 60 bpm BP: 105 / 41 mmHg Technical Quality: Fair Exam Date: 06/08/2022 3:06 PM Exam Location: [facility] Patient Status: Outpatient Admit Date: 06/08/2022 Staff Ordering Physician: Maxim Bryant DO Cook Helper Dessert: Narcisa Fofana RDCS Attending Provider: Maxim Bryant DO Referring Physician: Manny BOLTON; Exam Type: CA echo doppler color flow Study Info Indications R06.09 - Other forms of dyspnea Complete two-dimensional, color flow and Doppler transthoracic echocardiogram is performed. Summary 1. Complete two-dimensional, color flow and Doppler transthoracic echocardiogram is performed. 2. Left ventricular chamber dimension is normal. 3. Left ventricular systolic function is normal, estimated at 60-65%. 4. The left ventricular diastolic function is abnormal. 5. E/e' 11 is mildly elevated. 6. Left atrial chamber dimension is moderately enlarged. 7. Right atrial chamber dimension is mildly enlarged. 8. There is mild mitral valve regurgitation. 9. There is moderate tricuspid valve regurgitation. 10. Mild pulmonary hypertension, estimated pulmonary arterial systolic pressure is 41 mmHg. Left Ventricle E/e' 11 is mildly elevated. Left ventricular chamber dimension is normal. Left ventricular systolic function is normal, estimated at 60-65%. The left ventricular diastolic function is abnormal. Right Ventricle Right ventricular systolic function is normal and with normal TAPSE 2.1 cm. Right ventricular chamber dimension is normal. Left Atria Left atrial chamber dimension is moderately enlarged. Right Atria Right atrial chamber dimension is mildly enlarged. Aortic Valve The aortic valve is trileaflet. There is no aortic valve stenosis. There is no aortic valve regurgitation. Pulmonic Valve There is no pulmonic regurgitation. Mitral Valve There is no mitral valve stenosis. There is mild mitral valve regurgitation. Tricuspid Valve There is moderate tricuspid valve regurgitation. Mild pulmonary hypertension, estimated pulmonary arterial systolic pressure is 41 mmHg. Pericardium/Pleural There is no pericardial effusion. Inferior Vena Cava Normal inferior vena cava with >50% collapse upon inspiration consistent with normal right atrial pressure, 5 mmHg. Aorta The aortic root size at the sinus of Valsalva is normal. Left Ventricular Outflow Tract Name Value Normal LVOT 2D LVOT Diameter 2.0 cm LVOT Doppler LVOT Peak Gradient 4 mmHg LVOT Mean Gradient 2 mmHg LVOT VTI 23 cm LVOT VTI/AV VTI Ratio 0.9 LVOT Stroke Volume 73 ml LVOT CO 13.2 l/min LVOT CI 6.7 l/min/m2 Pulmonic Valve Name Value Normal
== END 2022-06-08 14:02 | disposition home or self-care (01) ==
LOC: ANHCARD 14:02
PROVIDERS: PCP Internal Medicine; Visit Provider Internal Medicine Cardiovascular Disease
DX: R06.09 Other forms of dyspnea (principal); I08.1 Rheumatic disorders of both mitral and tricuspid valves; I27.20 Pulmonary hypertension, unspecified
CPT/HCPCS: 93306

== ENCOUNTER 2022-06-13 09:03 | Outpatient (CLI) | payer OTHER, SELFPAY ==
[2022-06-13 10:08] LABS: INR 3.4; Prothrombin Time 33.5 Seconds (11.1-14.7)
== END 2022-06-13 09:04 | disposition home or self-care (01) ==
PROVIDERS: PCP Internal Medicine; Visit Provider Internal Medicine Cardiovascular Disease
DX: Z79.01 Long term (current) use of anticoagulants (principal)
CPT/HCPCS: 36415; 85610

== ENCOUNTER 2022-06-19 11:12 | Outpatient (CLI) | payer OTHER, SELFPAY ==
[2022-06-19 12:43] LABS: INR 2.5; Prothrombin Time 25.9 Seconds (11.1-14.7)
== END 2022-06-19 11:13 | disposition home or self-care (01) ==
PROVIDERS: PCP Internal Medicine; Visit Provider Internal Medicine Cardiovascular Disease
DX: R79.1 Abnormal coagulation profile (principal)
CPT/HCPCS: 36415; 85610

== ENCOUNTER 2022-06-30 08:00 | Outpatient (CLI) | payer OTHER, SELFPAY ==
--- NOTE | ~2022-06-30 | XR_ITS ---
Lumbosacral Spine: AP and lateral views, with neutral, flexion, and extension positioning. Clinical History: Pain COMPARISON: 01/01/2019 Findings: The normal lordotic curve is maintained. There is progressing retrolisthesis of L3 over L4, which now measures 4 mm. No instability evident on flexion or extension. Stable posterior fusion tanya dware from L4 through S1, bilateral rods and transpedicular screws, as well as interbody fusion devic es at the L3-L4 and L4-L5 disc spaces. The sacroiliac joints are normally outlined. Impression: 4 mm retrolisthesis of L3 over L4. No instability evident. Stable fusion hardware from L4 through S1, as above. Reviewed, dictated and finalized at location M. Impression: 4 mm retrolisthesis of L3 over L4. No instability evident. Stable fusion hardware from L4 through S1, as above.
== END 2022-06-30 08:01 | disposition home or self-care (01) ==
PROVIDERS: PCP Internal Medicine; Visit Provider Nurse Practitioner Adult Health
DX: M47.816 Spondylosis without myelopathy or radiculopathy, lumbar region (principal); Z98.1 Arthrodesis status
CPT/HCPCS: 72110

== ENCOUNTER 2022-07-05 08:27 | Outpatient (CLI) | payer OTHER, SELFPAY ==
[2022-07-05 09:42] LABS: INR 2.3; Prothrombin Time 24.2 Seconds (11.1-14.7)
== END 2022-07-05 08:28 | disposition home or self-care (01) ==
PROVIDERS: PCP Internal Medicine; Visit Provider Internal Medicine Cardiovascular Disease
DX: Z51.81 Encounter for therapeutic drug level monitoring (principal); Z79.01 Long term (current) use of anticoagulants
CPT/HCPCS: 36415; 85610

== ENCOUNTER 2022-07-24 09:01 | Outpatient (CLI) | payer OTHER, SELFPAY ==
[2022-07-14 09:25] VITALS: BMI 34.2
--- NOTE | 2022-07-14 09:25 | PC.NURSE ---
Pre Radiology instructions Report to the outpatient [facility] on date _07/24/22____ at time _9:30AM for procedure Time: _11:30AM___ YOU MAY BE MONITORED AT HOSPITAL FOR UP TO 4 HOURS AFTER YOUR PROCEDURE. A visitor will be allowed to accompany the patient into the hospital. You and your visitor will be asked to self-screen and do not enter if you have any COVID symptoms. A mask is OPTIONAL within the hospital. Patients are to have no food or drink 6 hours prior to procedure time Driving will be restricted after the procedure, you must have a person to drive you home. Labs will be drawn in preop area and once reviewed, you will be taken to radiology area for procedure. When the procedure is completed, you will be taken to outpatient where you will be monitored for several hours. You may have one visitor in this area. Other than holding anti-coagulants, patient may take other medication(s) as scheduled. Prior to your appointment date patients are instructed to hold anti-coagulants after discussing with ordering provider to stop. If unable to discontinue anti-coagulants please notify radiologist. ? No aspirin or warfarin (Coumadin) for 7 days prior to the procedure. ? No clopidogrel (Plavix), ticagrelor (Brilinta), prasugrel (Effient) or dabigatran (Pradaxa) for 5 days prior to the procedure. ? No rivaroxaban (Xarelto), apixaban (Eliquis), dipyridamole (Aggrenox or Persantine) or cilostazol (Pletal) for 2 days prior to the procedure. Medications to discontinue per physician: __HOLD WARFARIN 7 DAYS PRE-OP Date to take last dose: ___07/17/22 Please leave all valuables, including medications, at home the day of procedure. The hospital will not accept responsibility for valuables. Wear comfortable, loose fitting clothing.? Follow any additional instructions given to you from ordering provider. Telephone instructions given to ___PATIENT and asked if any additional questions and then verbalized understanding. Patient advised to call scheduling provider office or registration scheduling [phone] if any additional questions.
[2022-07-24] VITALS (10 sets, daily range): BP systolic 92–113; BP diastolic 49–63; PULSE 50–64; RESP 12–18; TEMP 36.4; O2SAT 94–100; BMI 33.2
--- NOTE | ~2022-07-24 | XR_ITS ---
EXAMINATION: 1. CT lumbar spine w con 2. XR myelogram spine lumbosacral DATE: 07/24/2022 11:28 INDICATION: Low back pain. TECHNIQUE: The procedure including the risks, benefits, and alternatives was discussed with the patie nt. Risks discussed included spinal headache, bleeding, and infection. The patient understood the ris ks and agreed to proceed. A timeout was performed to verify the patient's name, date of , and procedure to be performed. The skin overlying the L5 level was prepped and draped in usual sterile fashion. Subcutaneous 1% lidocaine was used for local anesthesia. A 20 gauge spinal needle was adva nced under fluoroscopic guidance. 17 mL Omnipaque 180 was injected. The needle was removed and the en try site was cleaned and dressed. There were no immediate complications. Fluoroscopy exposure time w as 0.4 minutes. The total number of images was 9. Computed tomography (CT) of the lumbar spine was pe rformed without intravenous contrast. The mA was adjusted according to patient size. Iterative recons truction technique was employed. The dose-length product was 1074.55 mGy-cm. COMPARISON: Lumbar spine CT 05/15/22 FINDINGS: LUMBAR MYELOGRAM: Real-time fluoroscopy demonstrates the needle at the L5 level. There are impression s on the thecal sac, worst at L3-L4, that will be further described on the post myelogram CT. The spi ne is hypomobile with flexion and extension. POST MYELOGRAM LUMBAR SPINE CT: There is 7 degrees dextrocurvature of thoracolumbar spine. There is 3 mm retrolisthesis of L1 on L2 and L3 on L4. There are changes of anterior and posterior fusion proce dures from L4 to S1 with interbody devices and pedicle screws. There is mild chronic anterior wedging of T12 vertebral body. There is mildly decreased disc height at T11-T12, T12-L1, and L1-L2 and moder ately decreased disc height at L3-L4. The conus medullaris is at L1. There is an electrode in left S3 neural foramen. The following disc levels are specifically discussed: T12-L1: The disc is bulging. There is mild bilateral facet joint osteoarthritis. There is no neural f oraminal stenosis. There is mild central canal stenosis. L1-L2: The disc is bulging. There is mild bilateral facet joint osteoarthritis. There is no neural fo raminal stenosis. There is mild central canal stenosis. L2-L3: The disc does not extend beyond the endplate margin. There is severe right and mild left facet joint osteoarthritis. There is mild right neural foraminal stenosis. There is no central canal steno sis. L3-L4: The disc is bulging. There is severe bilateral facet joint osteoarthritis. There is moderate b ilateral neural foraminal stenosis. There is moderate central canal stenosis. L4-L5: There is severe bilateral facet joint hypertrophy. There is mild bilateral neural foraminal st enosis. There is no central canal stenosis. L5-S1: There is severe bilateral facet joint hypertrophy. There is mild bilateral neural foraminal st enosis. There is no central canal stenosis. IMPRESSION: 1. Moderate lumbar spondylosis, worst at the L3-L4. 2. Anterior and posterior fusion procedures from L4 to S1. Reviewed, dictated and finalized at location A. IMPRESSION: 1. Moderate lumbar spondylosis, worst at the L3-L4. 2. Anterior and posterior fusion procedures from L4 to S1.
[2022-07-24 09:50] LABS: Mean Platelet Volume 9.6 fl (7.4-10.4); Platelet Count Result 247 k/mm3 (150-375)
[2022-07-24 10:08] LABS: INR 0.9; Prothrombin Time 11.9 Seconds (11.1-14.7)
--- NOTE | 2022-07-24 13:20 | SUR.PHASEII ---
this nurse informed dr hoff about pt soft bp and low HR and said to follow up with her PCP. pt is asymptomatic vss
== END 2022-07-24 13:32 | disposition home or self-care (01) ==
PROVIDERS: PCP Internal Medicine; Referring Provider Neurological Surgery; Visit Provider Radiology Diagnostic Radiology
DX: M47.816 Spondylosis without myelopathy or radiculopathy, lumbar region (principal); M48.061 Spinal stenosis, lumbar region without neurogenic claudication; M43.06 Spondylolysis, lumbar region; Z98.1 Arthrodesis status
CPT/HCPCS: 36415; 62304; 72132; 85049; 85610; Q9965

== ENCOUNTER 2022-08-07 10:54 | Outpatient (CLI) | payer OTHER, SELFPAY ==
[2022-08-07 11:44] LABS: Cholesterol 150 mg/dL (0-200); HDL Direct 43 mg/dL; Triglycerides 118 mg/dL (<150)
[2022-08-07 11:54] LABS: LDL Cholesterol Direct 81 mg/dL
[2022-08-07 11:55] LABS: Hematocrit 40.2 % (37.0-47.0); Mean Corpuscular HGB Conc 32.3 g/dl (32-36); Mean Corpuscular Hemoglobin 29.7 pg (26-34); Mean Corpuscular Volume 91.8 fl (80-100); Mean Platelet Volume 10.1 fl (7.4-10.4); Platelet Count Result 247 k/mm3 (150-375); Red Blood Count 4.38 M/mm3 (4.2-5.4); Red Cell Distribution Width 14.1 % (11.5-14.5); White Blood Count 6.2 K/mm3 (4.5-10.0)
== END 2022-08-07 10:55 | disposition home or self-care (01) ==
PROVIDERS: PCP Internal Medicine; Referring Provider Family Medicine; Visit Provider Nurse Practitioner Family
DX: I48.91 Unspecified atrial fibrillation (principal); E78.5 Hyperlipidemia, unspecified; E78.00 Pure hypercholesterolemia, unspecified
CPT/HCPCS: 36415; 80061; 85027; 85610

== ENCOUNTER 2022-08-18 09:44 | Outpatient (CLI) | payer OTHER, SELFPAY ==
[2022-08-18 10:38] LABS: Anion Gap 8 mmol/L (8-16); Blood Urea Nitrogen 27 mg/dL (7-17); Calcium 8.5 mg/dL (8.4-10.2); Carbon Dioxide 25 mmol/L (22-30); Chloride 106 mmol/L (98-107); Estimated Glomerular Filt Rate > 60; Glucose 89 mg/dL (65-110); Potassium 4.1 mmol/L (3.4-5.0); Sodium 139 mmol/L (137-145)
[2022-08-18 10:44] LABS: Partial Thromboplastin Time 29.4 SECONDS (22.3-36.8)
== END 2022-08-18 09:45 | disposition home or self-care (01) ==
LOC: ANHSURGERY 09:47
PROVIDERS: Anesthesiology; PCP Internal Medicine; Visit Provider Neurological Surgery
DX: I48.91 Unspecified atrial fibrillation (principal); M48.062 Spinal stenosis, lumbar region with neurogenic claudication; Z01.818 Encounter for other preprocedural examination
CPT/HCPCS: 36415; 80048; 85730; 86850; 86900; 86901

== ENCOUNTER 2022-08-24 12:22 | Inpatient (IN) | payer OTHER, SELFPAY ==
[2022-08-15 11:00] VITALS: BMI 33.5
--- NOTE | 2022-08-15 11:27 | PC.NURSE ---
Report to the Outpatient Waiting Room, entrance under the green pavilion located off [facility], at time _8:30AM on date __08/24/22 . Planned Procedure Time: _10:30AM . Time changes happen often and if your time is changed the preop area will call you the afternoon before. - You and your visitor will be asked to self-screen and do not enter if you have any COVID symptoms. - A mask is optional within the hospital at this time. Patients may have clear liquids (water, carbonated beverages, clear teas, apple juice) until 3 hours prior to surgery with a maximum of 20 ounces. - No food from midnight until time of surgery Take the following medications with a SIP of water the morning of surgery: __ARIPIPRAZOLE, BUPROPION, ESCITALOPRAM, FLECAINIDE, METOPROLOL___ DO NOT STOP ANY OF YOUR OTHER PRESCRIPTION MEDICATIONS PRIOR TO SURGERY ?EXCEPT THE FOLLOWING Medications to discontinue per physician ___HOLD COUMADIN [address] DURON(PER PATIENT)-LAST DOSE-08/17/22. HOLD ALL VITAMINS/SUPPLEMENTS 3 DAYS PRE-OP PER ANESTHESIA- LAST DOSE 08/20/22____ Please no make-up, nail panamanian, hairspray, perfume, deodorant, or body powder the day of surgery. No jewelry (including any body piercings) or valuables the day of surgery, leave them at home. Please take a shower or bath the night before, or the morning of, surgery with an antibacterial soap. Wear comfortable, loose fitting clothing. Children are encouraged to wear pajamas. - Jewelry must be removed prior to entering the operating room. Rings and piercings that are not removed may be cut off. - The hospital will not accept responsibility for valuables. - Please leave all valuables, including medications, at home the day of surgery. If you are going home after surgery, a licensed lead driver must drive you home. - NO public transportation without another adult if you receive anesthesia. - We recommend that an adult stay with you for 24 hours following discharge. - We also recommend that you do not drive, make important decision, drink alcoholic beverages, or take any drugs that were not prescribed by your health care provider for at least 24 hours after your discharge time. Follow any additional instructions given to you from your surgeon. If you or anyone in your household have experienced Covid symptoms in the past week, please notify your surgeon or the nurse liaison at the phone number below for possible testing. Telephone instructions given to __PATIENT and asked if any additional questions and then verbalized understanding. Patient advised to call surgeon office or pre surgery nurse liaison [phone] if any additional questions.
[2022-08-24] VITALS (16 sets, daily range): BP systolic 93–106; BP diastolic 44–80; PULSE 59–80; RESP 10–20; TEMP 35.6–37.1; O2SAT 92–100
--- NOTE | ~2022-08-24 | CT_ITS ---
EXAMINATION: CT brain wo con DATE: 08/29/2022 22:25 INDICATION: hallucinations, altered mental status . TECHNIQUE: Computed tomography (CT) of the head was performed without intravenous contrast. The mA wa s adjusted according to patient size. Iterative reconstruction technique was employed. The dose-lengt h product was 605.33 mGy-cm. COMPARISON: None. FINDINGS: No acute intracranial hemorrhage or extra-axial fluid collection. Multiple circumscribed subcentimeter hypodensities in the white matter of the left posterior frontal lobe, involving a total area of approximately 2 cm, with adjacent low density white matter. No hydroc ephalus or herniation. No acute ischemic infarct. Unremarkable dural venous sinus attenuation. No acute osseous abnormality. The aerated spaces are clear. IMPRESSION: 1. No acute intracranial hemorrhage or acute large vessel infarct. 2. Multicystic lesion in the left posterior frontal lobe white matter, may represent prominent Vircho w-Pierre spaces. Cystic neoplasm, abscess, or parasitic disease considered much less likely. Consider MR of the brain without and with contrast for further evaluation. Reviewed, dictated and finalized at location K. IMPRESSION: 1. No acute intracranial hemorrhage or acute large vessel infarct. 2. Multicystic lesion in the left posterior frontal lobe white matter, may repr esent prominent Virchow-Pierre spaces. Cystic neoplasm, abscess, or parasitic di sease considered much less likely. Consider MR of the brain without and with co ntrast for further evaluation.
--- NOTE | ~2022-08-24 | XR_ITS ---
XR fluoroscopy no charge Procedure: L3-4 posterior lateral interbody fusion TECHNIQUE: Fluoroscopy used during L3-4 posterior lateral interbody fusion procedure performed by Dr Hoffman [Stalin Najera MD] on 08/24/2022. 5 seconds of fluoroscopy. with 3 images captured. FINDINGS: Correlate with procedure note. IMPRESSION: Fluoroscopy used during L3-4 posterior lateral interbody fusion procedure. Please refer t o procedural report. Reviewed, dictated and finalized at location L. IMPRESSION: Fluoroscopy used during L3-4 posterior lateral interbody fusion pro cedure. Please refer to procedural report.
--- NOTE | ~2022-08-24 | XR_ITS ---
EXAMINATION: XR chest 1V portable DATE: 08/27/2022 17:34 INDICATION: Cough and fever TECHNIQUE: frontal view of the chest was obtained. COMPARISON: Chest radiograph dated 04/28/2011 FINDINGS: Lung volumes are decreased. Mild increased opacities at the bilateral opal and lung bases which could represent atelectasis and bronchovascular crowding related to the small lung volumes with differenti al including mild pulmonary edema or pneumonia. No pleural effusion or pneumothorax. The cardiomedias tinal silhouette is within normal limits for AP technique. IMPRESSION: 1. Mild perihilar and basilar opacities which could represent atelectasis and bronchovascular crowdin g related to the small lung volumes with differential including mild pulmonary edema or pneumonia. Reviewed, dictated and finalized at location A. IMPRESSION: 1. Mild perihilar and basilar opacities which could represent atelectasis and b ronchovascular crowding related to the small lung volumes with differential inc luding mild pulmonary edema or pneumonia.
[2022-08-24 06:54] LABS: INR 0.9; Prothrombin Time 12.3 Seconds (11.1-14.7)
[2022-08-24] MEDS: LACTATED RINGERS 1,000 ML 30 ML IV CONT ×2 (07:00→10:49)
--- NOTE | 2022-08-24 07:29 | PM.IMHP ---
H&P: HPI History of Present Illness Date/Time: 08/24/22 07:29 Chief Complaint: Back and leg pain Narrative: Ms. 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 She has not changed appreciably since we last saw her. She is not having any bowel or bladder difficulty or other constitutional problems. She is not having any specific muscle group weakness or dermatomal numbness Review of Systems Review of Systems: Patient denies shortness of breath, cough, fever, chills, nausea, vomiting, weight loss, weight gain, chest pain, dysuria. She has back and leg pain as above. Review systems is otherwise negative except as noted elsewhere on 12 systems. [facility] Past Medical History Medical History Adenomatous colon polyp Essential (primary) hypertension GERD (gastroesophageal reflux disease) Left flank pain Lumbar spondylosis RAZA (obstructive sleep apnea) Postmenopausal Pure hypercholesterolemia Screening for colon cancer Screening for colon cancer Surgical History Surgical History History of back surgery History of hysterectomy 1994 Family History Family History Father Family history of throat cancer Patient's father is Sibling Patient's brother is Acute myocardial infarction Diabetes mellitus Other Family history of cardiovascular disease Family history of malignant neoplasm Hypertension Social History Social History Smoking packs per day: 1 Smoking cigarettes per day: 20.0 Years smoked: 8 Smoking pack-years: 8.00 Smoking status: Former smoker Tobacco type: cigarettes Second hand tobacco smoke exposure: Yes Smoking end date: 10/01/79 Alcohol intake: current Alcohol use details: Social Substance use: never Lack of Transportation: No Lack of Food: Never True Current Housing: I Have Housing Concerned About Future Housing: No Difficulty Paying Gas/Electric Bills: No Difficulty Paying for Meds: No Currently Unemployed: No Education: High School Diploma/GED Difficulty w/ Childcare or Family Care: No Living arrangements: with family Additional living arrangements comments: [facility] Spiritual care concerns: No Meds Home Medications and Allergies Home Medications Medication Instructions Recorded Confirmed Type cholecalciferol (vitamin D3) 125 125 mcg PO DAILY 10/06/20 08/15/22 History mcg (5,000 unit) capsule fexofenadine 60 mg tablet (Scarlett 60 mg PO Q12H PRN Allergy Symptoms 10/13/20 08/15/22 History Allergy) calcium carbonate 500 mg calcium 500 mg PO DAILY #90 tabs 11/07/21 08/15/22 Rx (1,250 mg) tablet nitroglycerin 0.4 mg sublingual 0.4 mg sublingual Q5M PRN chest 12/28/21 08/15/22 Rx tablet pain #30 tabs rosuvastatin 20 mg tablet 20 mg PO DAILY #90 tabs 05/31/22 08/15/22 Rx flecainide 50 mg tablet 50 mg PO Q12H #60 tabs 06/13/22 08/15/22 Rx furosemide 40 mg tablet 40 mg PO QAM #90 tabs 06/27/22 08/15/22 Rx aripiprazole 5 mg tablet 5 mg PO QAM 07/14/22 08/15/22 History escitalopram oxalate 20 mg tablet 20 mg PO QAM 07/14/22 08/15/22 History lisinopril 40 mg tablet 40 mg PO QAM 07/14/22 08/15/22 History metoprolol succinate 50 mg 25 mg PO QAM 07/14/22 08/15/22 History tablet,extended release 24 hr omeprazole 20 mg capsule,delayed 20 mg PO QAM 07/14/22 08/15/22 History release warfarin 5 mg tablet 2.5 mg PO DAILY 07/14/22 08/15/22 History bupropion HCl 300 mg 24 hr tablet, 300 mg PO QAM #90 tabs 08/08/22 08/15/22 Rx extended release (Wellbutrin XL) acetaminophen 500 mg capsule 1,000 mg PO Q6H PRN Pain 08/15/22 08/15/22 History Allergies A
--- NOTE | 2022-08-24 07:32 | WPDHPUPDATE1 ---
History and Physical Update Update Date/Time: 08/24/22 07:32 History and Physical has been reviewed, including an updated exam of the patient. There are NO changes in the patient's condition. Risks, benefits, and alternatives have been discussed and questions answered. Patient agrees to proceed with procedure.
--- NOTE | 2022-08-24 07:33 | WPDANESEPPF ---
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 Patient Data Age: 71 Gender: F Height: 1.57 m Weight: 83 kg Allergies Allergy/AdvReac Type Severity Reaction Status Date / Time No Known Allergies Allergy Verified 08/15/22 10:52 Home Medications Medication Instructions Recorded Confirmed Type cholecalciferol (vitamin D3) 125 125 mcg PO DAILY 10/06/20 08/15/22 History mcg (5,000 unit) capsule fexofenadine 60 mg tablet (Scarlett 60 mg PO Q12H PRN Allergy Symptoms 10/13/20 08/15/22 History Allergy) calcium carbonate 500 mg calcium 500 mg PO DAILY #90 tabs 11/07/21 08/15/22 Rx (1,250 mg) tablet nitroglycerin 0.4 mg sublingual 0.4 mg sublingual Q5M PRN chest 12/28/21 08/15/22 Rx tablet pain #30 tabs rosuvastatin 20 mg tablet 20 mg PO DAILY #90 tabs 05/31/22 08/15/22 Rx flecainide 50 mg tablet 50 mg PO Q12H #60 tabs 06/13/22 08/15/22 Rx furosemide 40 mg tablet 40 mg PO QAM #90 tabs 06/27/22 08/15/22 Rx aripiprazole 5 mg tablet 5 mg PO QAM 07/14/22 08/15/22 History escitalopram oxalate 20 mg tablet 20 mg PO QAM 07/14/22 08/15/22 History lisinopril 40 mg tablet 40 mg PO QAM 07/14/22 08/15/22 History metoprolol succinate 50 mg 25 mg PO QAM 07/14/22 08/15/22 History tablet,extended release 24 hr omeprazole 20 mg capsule,delayed 20 mg PO QAM 07/14/22 08/15/22 History release warfarin 5 mg tablet 2.5 mg PO DAILY 07/14/22 08/15/22 History bupropion HCl 300 mg 24 hr tablet, 300 mg PO QAM #90 tabs 08/08/22 08/15/22 Rx extended release (Wellbutrin XL) acetaminophen 500 mg capsule 1,000 mg PO Q6H PRN Pain 08/15/22 08/15/22 History Laboratory Tests 08/24/22 06:38 PT 12.3 Seconds (11.1-14.7) INR 0.9 APTT 26.0 SECONDS (22.3-36.8) Patient hx anesthesia problems: none Family hx anesthesia problems: none Results Review: All pre-operative results and documents have been reviewed as part of the pre-operative evaluation. [facility] Past Medical History Medical History Adenomatous colon polyp Essential (primary) hypertension GERD (gastroesophageal reflux disease) Left flank pain Lumbar spondylosis RAZA (obstructive sleep apnea) Postmenopausal Pure hypercholesterolemia Screening for colon cancer Screening for colon cancer Surgical History Surgical History History of back surgery History of hysterectomy 1994 Family History Family History Father Family history of throat cancer Patient's father is Sibling Patient's brother is Acute myocardial infarction Diabetes mellitus Other Family history of cardiovascular disease Family history of malignant neoplasm Hypertension Social History Social History Smoking packs per day: 1 Smoking cigarettes per day: 20.0 Years smoked: 8 Smoking pack-years: 8.00 Smoking status: Former smoker Tobacco type: cigarettes Second hand tobacco smoke exposure: Yes Smoking end date: 10/01/79 Alcohol intake: current Alcohol use details: Social Substance use: never Lack of Transportation: No Lack of Food: Never True Current Housing: I Have Housing Concerned About Future Housing: No Difficulty Paying Gas/Electric Bills: No Difficulty Paying for Meds: No Currently Unemployed: No Education: High School Diploma/GED Difficulty w/ Childcare or Family Care: No Living arrangements: with family Additional living arrangements comments: [facility] Spiritual care concerns: N
[2022-08-24] MEDS: ceFAZolin 2 GM/D5W 50 ML 2 GM/50 ML BAG IVPB (07:41)
[2022-08-24] MEDS: LIDO 1%/EPINEPHRINE 1:100,000 20 ML VIAL 10 ML INFILTRATE (08:26)
--- NOTE | 2022-08-24 10:22 | W.PM.PROC2 ---
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 She was then turned into the prone position on a Molina frame. The of operation on her back was examined, marked for incision, prepped and draped in routine sterile fashion. Incision was marked over the L3 through 5 spinous processes in the midline. This area was injected with 0.5% lidocaine with [id number] epinephrine. Intravenous antibiotics prior to incision. Incision was made with a 10 blade scalpel down to the lumbodorsal fascia. A subperiosteal dissection muscle soft tissue with the spinous process and lamina at L3 was performed with a subperiosteal elevator and Bovie cautery. Bovie cautery was used to discover the instrumentation from L4-S1. A verifying x-rays obtained to verify the level of operation. The L3 spinous process was removed with a Elza rongeur. Kerrison punches, curved curette and a Leksell rongeur were used to remove lamina in the midline and to the soft contents of the canal were encountered. A Midas Rc drill was used to resect the pars bilaterally at L3. The inferior articular process and facet of L3 could then be removed bilaterally. These +spinous process were stripped free of soft tissue and morselized for later use as interbody autograft. Kerrison punches and curved curettes were used to define a plane with the dura and removed bone and ligament flush with the pedicle and widely decompressed the exiting nerve roots bilaterally. With the thecal sac retracted and protected on the right the disc spaces entered using a 11 blade scalpel. Scrapers a very sizes, curettes of various configurations, pituitary rongeur and a rasp were used to remove as much cartilaginous endplate and disc material as possible down to bleeding cortical flat surfaces on the opposing bones. The disc spaces and sized a 9 mm interbody device was chosen and filled with local autograft bone. The disc space was likewise filled with local autograft bone. The interbody device was then placed 2-3 mm countersink within the disc space. This was done from the right diagonally across the disc space. Pedicle screw instrumentation was performed at L3 by observing and palpating the pedicle wall a hole was made in the superior to the process above the pedicle using a Midas Rc drill. The pedicle was then cannulated with a pedicle probe, checked for continuity with the ball probe, tapped with a 5.5 mm tap and a 6.5 x 50 mm screw was placed into each pedicle at L3. Lateral connectors were attached to the rods. This was done below the L5 screw on the left and between the L4 and S1 screws on the right. The anjel was then set in position lateral to the previous anjel from the lateral connector to the screw head at L3 and secured in position using the appropriate caps. These were all then definitively tightened torque and anti torque device. A verifying x-rays obtained to verify good position of the instrumentation which was confirmed. The wound was then copiously irrigated with bacitracin irrigation all bleeding stopped with bipolar Bovie cautery and Gelfoam thrombin powder. Wound was then closed in layered fashion with 2-0 Vicryl interrupted sutures in the lumbodorsal fascia and Jimbo's layer. 3-0 Vicryl buried interrupted sutures were placed in the dermis and skin was closed with a running 4-0 Monocryl subcuticular stitch and dressed with Dermabond. The patient was allowed to wake up in the operating room and was taken to the recovery room stable condition. There were no immediate complications of this operation. All counts were reported janelle
--- NOTE | 2022-08-24 12:56 | ADMGEN ---
This patient, Sarika Arora, was admitted to [facility] Surg Room 329-01. Patient/family oriented to hospital policies and general routines including ID bracelet, bed and alarms, visiting hours, pain management, procedures, bathroom and other care routines, personal items, smoking policy, room service/diet, and visiting hours. Information on how to activate the Rapid Response Team has been discussed. Patient/Family are encouraged to report perceived risks to care and to ask questions if they do not understand what they are told or what they should do.
[2022-08-24] MEDS: HYDROcodone/acetaminophen (*CRX) 10-325 MG TABLET 1 TAB PO (13:21)
--- NOTE | 2022-08-24 14:13 | PCOTNOTE ---
Attempted OT evaluation, patient declined at this time due to increased pain, will follow.
--- NOTE | 2022-08-24 14:23 | PCPTNOTE ---
Attempted PT evaluation, patient declined at this time due to increased pain, will follow.
[2022-08-24] MEDS: KCL 20 MEQ/D5/0.45% SOD CHL 1,000 ML 100 ML IV CONT (15:23)
[2022-08-24] MEDS: HYDROmorphone HCL INJ (*CRX) 1 MG/ML SYR 0.5 MG IV PUSH ×2 (15:44→19:47)
--- NOTE | 2022-08-24 20:29 | WPDCN ---
Assessment and Plan Assessment and plan (1) Postoperative hypotension: Code(s): I95.81 - Postprocedural hypotension Status: Acute Assessment and Plan: Blood pressures were reportedly in the 70s systolic in PACU though I have not been able to find that documented. Floor nurse indicated that the patient received 2 doses of push dose pressors. She was admitted to the floor with blood pressures at the low end of normal, as low as 93/73. She does not seem to be symptomatic and denies lightheadedness, dizziness, chest pain, shortness a breath, nausea, vomiting, and sweats. Hold antihypertensives for now. Continue IV fluid rehydration overnight. Check CBC and BMP. (2) Lumbar stenosis: Code(s): M48.061 - Spinal stenosis, lumbar region without neurogenic claudication Status: Acute Assessment and Plan: Postoperative day 0 status post L3-4 posterior lumbar interbody fusion. Wound care, pain control, DVT prophylaxis deferred to surgeon. (3) Paroxysmal atrial fibrillation: Code(s): I48.0 - Paroxysmal atrial fibrillation Status: Acute Assessment and Plan: She sounds to be in a normal sinus rhythm. Continue flecainide and metoprolol with parameters. (4) Chronic anticoagulation: Code(s): Z79.01 - [employer] (current) use of anticoagulants Status: Acute Assessment and Plan: She has been off of warfarin for 8 days preoperatively. Resume when okay with surgeon. (5) Depression: Code(s): F32.A - Depression, unspecified Status: Acute Assessment and Plan: Continue bupropion, escitalopram, and aripiprazole. Plan Thank you for allowing us to participate in this patient's care. Please do not hesitate to contact us with any questions. HPI Data of Consult Date/Time: 08/24/22 19:30 Requesting Physician: Stalin Najera MD Consult Narrative Reason for consult: Postoperative hypotension. Narrative: This is a pleasant 71-year-old female status post L3-L4 posterior lumbar interbody fusion whom the hospitalist service has been consulted regarding postoperative hypotension. Her medical history is significant for hypertension, hyperlipidemia, and paroxysmal atrial fibrillation on warfarin. Her surgery was performed under general anesthesia with no immediate complications documented an estimated blood loss of 300 mL. In the PACU she reportedly had systolic blood pressures in the 70s for which she received a couple of doses of push dose pressors. Blood pressures have been in the 90s to low 100s systolic since arrival to the floor. She seems to be asymptomatic with that and she denies lightheadedness, dizziness, chest pain, shortness a breath, nausea, vomiting, and sweats. Her main complaint is that of uncontrolled pain at the incision site which she has a difficult time describing. She states that it just hurts, specifically denying muscle spasms however. She has chronic numbness on the top of the left foot which is unchanged. Left lower leg felt a bit numb postoperatively but sensation is now intact per patient report. Review of Systems Review of Systems: Twelve systems were reviewed and are negative except for as per HPI. [facility] Past Medical History Medical History (Updated 08/24/22 @ 20:48 by Keyonna Reynoso PA-C) Adenomatous colon polyp Chronic anticoagulation Depression Diverticulitis Essential (primary) hypertension Gastroesophageal reflux disease Paroxysmal atrial fibrillation Postmenopausal Pure hypercholesterolemia Stress incontinence Surgical History Surgical History (Updated 08/24/22 @ 20:48 by Keyonna Reynoso PA-C) History of back surgery History of benign breast biopsy History of hysterectomy (1994) Sacral nerve stimulator present Family History Family History Father Family history of throat cancer Patient's father is Sibling
[2022-08-24 21:12] LABS: Hematocrit 32.8 % (37.0-47.0); Hemoglobin 10.8 g/dL (12.0-15.0); Mean Corpuscular HGB Conc 32.9 g/dl (32-36); Mean Corpuscular Hemoglobin 29.8 pg (26-34); Mean Corpuscular Volume 90.6 fl (80-100); Mean Platelet Volume 9.6 fl (7.4-10.4); Platelet Count Result 207 k/mm3 (150-375); Red Blood Count 3.62 M/mm3 (4.2-5.4); Red Cell Distribution Width 13.8 % (11.5-14.5); White Blood Count 10.4 K/mm3 (4.5-10.0)
[2022-08-24 21:25] LABS: Anion Gap 6 mmol/L (8-16); Blood Urea Nitrogen 18 mg/dL (7-17); Calcium 7.9 mg/dL (8.4-10.2); Carbon Dioxide 24 mmol/L (22-30); Chloride 107 mmol/L (98-107); Estimated CRCL calculation 58 ml/min; Estimated Glomerular Filt Rate > 60; Glucose 142 mg/dL (65-110); Magnesium 1.8 mg/dL (1.6-2.3); Potassium 4.1 mmol/L (3.4-5.0); Sodium 137 mmol/L (137-145)
[2022-08-24] MEDS: LACTATED RINGERS 1,000 ML 100 ML IV CONT (23:13)
[2022-08-24] MEDS: FLECAINIDE ACETATE 50 MG TABLET PO (23:18)
[2022-08-24] MEDS: DOCUSATE SODIUM 100 MG CAPSULE PO (23:19)
[2022-08-25] VITALS (8 sets, daily range): BP systolic 89–104; BP diastolic 38–58; PULSE 62–71; RESP 16–20; TEMP 36.3–36.9; O2SAT 90–96
[2022-08-25] MEDS: HYDROmorphone HCL INJ (*CRX) 1 MG/ML SYR 0.5 MG IV PUSH ×4 (01:25→18:21)
[2022-08-25] MEDS: HYDROcodone/acetaminophen (*CRX) 10-325 MG TABLET 1 TAB PO (08:02)
[2022-08-25] MEDS: LACTATED RINGERS 1,000 ML 100 ML IV CONT ×2 (09:08→20:19)
[2022-08-25] MEDS: ESCITALOPRAM OXALATE 10 MG TABLET 20 MG PO (09:10)
[2022-08-25] MEDS: ARIPiprazole 5 MG TABLET PO (09:11)
[2022-08-25] MEDS: ROSUVASTATIN 10 MG TABLET 20 MG PO (09:11)
[2022-08-25] MEDS: DOCUSATE SODIUM 100 MG CAPSULE PO ×2 (09:11→20:20)
[2022-08-25] MEDS: CYCLOBENZAPRINE HCL 10 MG TABLET PO ×2 (09:12→20:20)
[2022-08-25] MEDS: PANTOPRAZOLE 40 MG TABLET PO (09:12)
[2022-08-25] MEDS: FLECAINIDE ACETATE 50 MG TABLET PO ×2 (09:13→20:20)
[2022-08-25] MEDS: CALCIUM CARBONATE (OSCAL) 500 MG TABLET PO (09:13)
[2022-08-25] MEDS: buPROPion HCL XL (24 HR) 150 MG TABCR 300 MG PO (09:14)
[2022-08-25] MEDS: CHOLECALCIFEROL 1,000 UNITS TABLET 5000 UNITS PO (09:14)
--- NOTE | 2022-08-25 14:44 | WPDANESPN ---
Anes - Prog Note Post-Op Date/Time: 08/25/22 14:44 Vital Signs: Last Vital Signs Temp 36.6 C 08/25/22 12:00 Pulse 64 08/25/22 12:00 Resp 20 08/25/22 12:00 BP 101/45 L 08/25/22 12:00 Pulse Ox 93 08/25/22 12:00 O2 Del Method Room Air 08/25/22 08:44 O2 Flow Rate 2 08/24/22 19:59 Pain Score (VAS): 4 I/O: Intake & Output 08/24/22 08/25/22 08/25/22 23:59 07:59 15:59 Intake Total 065 015 8357 Output Total 600 200 300 Balance -360 -100 1660 Laboratory Tests 08/24/22 21:01 08/24/22 21:01 08/24/22 21:01 WBC 10.4 H RBC 3.62 L Hgb 10.8 L Hct 32.8 L MCV 90.6 MCH 29.8 MCHC 32.9 RDW 13.8 Plt Count 207 MPV 9.6 Sodium 137 Potassium 4.1 Chloride 107 Carbon Dioxide 24 Anion Gap 6 L BUN 18 H Creatinine 0.80 Estim Creat Clear Calc 58 Estimated GFR > 60 Glucose 142 H Calcium 7.9 L Magnesium 1.8 Patient Feedback: Patient satisfied with anesthetic care.
--- NOTE | 2022-08-25 14:49 | WPDNEUROSGPN ---
Progress Note: A&P Assessment and Plan (1) Lumbar stenosis: Code(s): M48.061 - Spinal stenosis, lumbar region without neurogenic claudication Status: Acute Assessment and Plan: Doing well after surgery Pain control is issue - swithc medications to percocet Encourage mm relaxant use Likely d/c drain tomorrow D/C zeng tonight Discharge pending pain control Time Spent With Patient Time with patient: 15 - 25 minutes Subjective Date/time seen: 08/25/22 14:49 Interval history: Patient doing well - notes marked improvement in leg symptoms Exam Narrative: AAOx3 Speech cF JAMILAH EOMI Face= TML MAEEW with good strength Objective Data Vital Signs Vital Signs: Vital Signs - 24 hr 08/24/22 16:00 08/24/22 19:40 08/24/22 19:59 Temperature 97.6 F Pulse Rate 61 Respiratory Rate 16 Blood Pressure 104/68 100/60 Pulse Oximetry 92 98 Oxygen Delivery Nasal Cannula Oxygen Flow Rate 2 08/24/22 21:03 08/24/22 23:15 08/24/22 23:18 Temperature 96.6 F L 97.7 F Pulse Rate 59 L 65 65 Respiratory Rate 18 20 Blood Pressure 106/62 Pulse Oximetry 95 94 Oxygen Delivery Oxygen Flow Rate 08/25/22 04:00 08/25/22 07:37 08/25/22 07:58 Temperature 97.4 F L 97.7 F Pulse Rate 64 62 Respiratory Rate 16 20 Blood Pressure 100/56 L 91/38 L Pulse Oximetry 96 95 Oxygen Delivery Room Air Oxygen Flow Rate 08/25/22 08:44 08/25/22 09:13 08/25/22 12:00 Temperature 97.8 F Pulse Rate 62 64 Respiratory Rate 20 Blood Pressure 101/45 L Pulse Oximetry 93 Oxygen Delivery Room Air Oxygen Flow Rate Intake/Output Intake/Output: Intake & Output 08/22/22 08/23/22 08/24/22 08/25/22 23:59 23:59 23:59 23:59 Intake Total 4140 2060 Output Total 680 500 Balance 3460 1560 Meds/Results Medications: Active Medications Generic Name Dose Route Start Last Admin Trade Name Freq PRN Reason Stop Dose Admin Al Hydrox/Mg Hydrox/Simethicone 20 ml 08/24/22 12:22 Mag Hydrox/Al Hydrox/Simeth 30 Ml Udc PO Q4H PRN Indigestion/Heartburn Aripiprazole 5 mg 08/25/22 09:00 08/25/22 09:11 Aripiprazole 5 Mg Tablet PO 5 mg QAM [facility] Administration Bisacodyl 10 mg 08/24/22 12:22 Bisacodyl 10 Mg Suppository RECTAL DAILY PRN Constipation Bupropion HCl 300 mg 08/25/22 09:00 08/25/22 09:14 Bupropion Hcl Xl (24 Hr) 150 Mg Tabcr PO 300 mg QAM [facility] Administration Calcium Carbonate 500 mg 08/25/22 09:00 08/25/22 09:13 Calcium Carbonate (Oscal) 500 Mg Tablet PO 500 mg DAILY [facility] Administration Cyclobenzaprine HCl 10 mg 08/24/22 12:22 08/25/22 09:12 Cyclobenzaprine Hcl 10 Mg Tablet PO 10 mg TID PRN Administration Muscle Spasms Docusate Sodium 100 mg 08/24/22 21:00 08/25/22 09:11 Docusate Sodium 100 Mg Capsule PO 100 mg Q12HR [facility] Administration Escitalopram Oxalate 20 mg 08/25/22 09:00 08/25/22 09:10 Escitalopram Oxalate 10 Mg Tablet PO 20 mg QAM [facility] Administration Flecainide Acetate 50 mg 08/24/22 21:00 08/25/22 09:13 Flecainide Acetate 50 Mg Tablet PO 50 mg Q12HR [facility] Administration Furosemide 40 mg 08/25/22 09:00 Furosemide 40 Mg Tablet PO QAM [facility] Hydromorphone HCl 0.5 mg 08/24/22 15:29 08/25/22 11:50 Hydromorphone Hcl Inj (*Crx) 1 Mg/Ml Syr IV PUSH 0.5 mg Q2H PRN Administration Pain Rated 7-10 Lactated Ringer's 1,000 mls @ 100 mls/hr 08/24/22 22:50 08/25/22 09:08 Lr - Lactated Ringers Iv IV CONT 100 mls/hr .Q10H [facility] Administration Lisinopril 40 mg 08/25/22 09:00 Lisinopril 20 Mg Tablet PO QAM [facility] Loratadine 10 mg 08/24/22 12:22 Loratadine 10 Mg Tablet PO DAILY PRN Allergy Symptoms Metoprolol Succinate 25 mg 08/25/22 09:00 Metoprolol Succinate Ext Rel 25 Mg Tabcr PO QAM [facility] Ondansetron HCl 4 mg 08/24/22 12:22 Ondansetron Inj 4 Mg/2 Ml Vial IV PUSH Q8H PRN Nausea And V
[2022-08-25] MEDS: oxyCODONE/ACETAMINOPHEN (*CRX) 10-325 MG TABLET 1 TAB PO ×2 (15:09→23:46)
--- NOTE | 2022-08-25 15:59 | PM.IMPN ---
Progress Note: A&P Assessment and Plan (1) Postoperative hypotension: Code(s): I95.81 - Postprocedural hypotension Status: Acute Assessment and Plan: Blood pressures were reportedly in the 70s systolic in PACU though not well documented. Floor nurse indicated that the patient received 2 doses of push doses of pressors. She was admitted to the medical floor. She was not symptomatic Metoprolol continued with parameters. Remains on IV fluids She seems to tolerate being up with PT/OT If BP remains soft, may need to cut back metoprolol and/or narcotics. (2) Lumbar stenosis: Code(s): M48.061 - Spinal stenosis, lumbar region without neurogenic claudication Status: Acute Assessment and Plan: Postoperative day 1 status post L3-4 posterior lumbar interbody fusion. Wound management, pain control, DVT prophylaxis per primary team (3) Paroxysmal atrial fibrillation: Code(s): I48.0 - Paroxysmal atrial fibrillation Status: Acute Assessment and Plan: Clinically with normal rate and rhythm. Continue flecainide and metoprolol with parameters. (4) Chronic anticoagulation: Code(s): Z79.01 - [facility] (current) use of anticoagulants Status: Acute Assessment and Plan: She has been off of warfarin for >7 days preoperatively. Resume when okay with surgeon. (5) Depression: Code(s): F32.A - Depression, unspecified Status: Acute Assessment and Plan: Mood stable. Continue bupropion, escitalopram, and aripiprazole. Subjective Date/time seen: 08/25/22 15:59 Interval history: 71yo female with pAFib, HTN and depression status post L3-L4 posterior lumbar interbody fusion whom the hospitalist service has been consulted regarding postoperative hypotension.? Pain 5/10 at rest but 10/10 with activity. She has been able to be up today. She denies lightheadedness, chest pain, dizziness, SOB when up. No hx of low BP at home. She does have transient lightheadedness when standing at home. Exam Narrative: AF 97.8 101/45 64 20 93% RA Gen - NARD Chest - clear anteriorly and in the flanks. nml RR CV - RRR S1/S2 Abd - Soft, NT/ND, Positive BS Ext - No pedal edema. nelly and plantar flexion strength 5/5 Psych - Nml mood and affect Skin - Warm and dry Objective Data Vital Signs Vital Signs: Vital Signs - 24 hr 08/24/22 16:00 08/24/22 19:40 08/24/22 19:59 Temperature 97.6 F Pulse Rate 61 Respiratory Rate 16 Blood Pressure 104/68 100/60 Pulse Oximetry 92 98 Oxygen Delivery Nasal Cannula Oxygen Flow Rate 2 08/24/22 21:03 08/24/22 23:15 08/24/22 23:18 Temperature 96.6 F L 97.7 F Pulse Rate 59 L 65 65 Respiratory Rate 18 20 Blood Pressure 106/62 Pulse Oximetry 95 94 Oxygen Delivery Oxygen Flow Rate 08/25/22 04:00 08/25/22 07:37 08/25/22 07:58 Temperature 97.4 F L 97.7 F Pulse Rate 64 62 Respiratory Rate 16 20 Blood Pressure 100/56 L 91/38 L Pulse Oximetry 96 95 Oxygen Delivery Room Air Oxygen Flow Rate 08/25/22 08:44 08/25/22 09:13 08/25/22 12:00 Temperature 97.8 F Pulse Rate 62 64 Respiratory Rate 20 Blood Pressure 101/45 L Pulse Oximetry 93 Oxygen Delivery Room Air Oxygen Flow Rate Intake/Output Intake/Output: Intake & Output 08/22/22 08/23/22 08/24/22 08/25/22 23:59 23:59 23:59 23:59 Intake Total 4140 2060 Output Total 680 500 Balance 3460 1560 Meds/Results Medications: Active Medications Generic Name Dose Route Start Last Admin Trade Name Freq PRN Reason Stop Dose Admin Al Hydrox/Mg Hydrox/Simethicone 20 ml 08/24/22 12:22 Mag Hydrox/Al Hydrox/Simeth 30 Ml Udc PO Q4H PRN Indigestion/Heartburn Aripiprazole 5 mg 08/25/22 09:00 08/25/22 09:11 Aripiprazole 5 Mg Tablet PO 5 mg QAM [facility] Administration Bisacodyl 10 mg 08/24/22 12:22 Bisacodyl 10 Mg Suppository RECTAL DAILY PRN Constipation
[2022-08-26] VITALS (10 sets, daily range): BP systolic 96–140; BP diastolic 41–90; PULSE 56–96; RESP 16–20; TEMP 35.9–37; O2SAT 88–98
[2022-08-26] MEDS: oxyCODONE/ACETAMINOPHEN (*CRX) 10-325 MG TABLET 1 TAB PO ×3 (03:35→13:10)
[2022-08-26] MEDS: LACTATED RINGERS 1,000 ML 100 ML IV CONT (06:04)
[2022-08-26] MEDS: CYCLOBENZAPRINE HCL 10 MG TABLET PO ×2 (06:04→20:51)
[2022-08-26] MEDS: CHOLECALCIFEROL 1,000 UNITS TABLET 5000 UNITS PO (08:35)
[2022-08-26] MEDS: buPROPion HCL XL (24 HR) 150 MG TABCR 300 MG PO (08:35)
[2022-08-26] MEDS: ROSUVASTATIN 10 MG TABLET 20 MG PO (08:35)
[2022-08-26] MEDS: ARIPiprazole 5 MG TABLET PO (08:35)
[2022-08-26] MEDS: PANTOPRAZOLE 40 MG TABLET PO (08:35)
[2022-08-26] MEDS: CALCIUM CARBONATE (OSCAL) 500 MG TABLET PO (08:36)
[2022-08-26] MEDS: METOPROLOL SUCCINATE EXT REL 25 MG TABCR PO (08:36)
[2022-08-26] MEDS: FLECAINIDE ACETATE 50 MG TABLET PO ×2 (08:36→20:44)
[2022-08-26] MEDS: DOCUSATE SODIUM 100 MG CAPSULE PO ×2 (08:37→20:45)
[2022-08-26] MEDS: ESCITALOPRAM OXALATE 10 MG TABLET 20 MG PO (08:37)
[2022-08-26] MEDS: HYDROmorphone HCL INJ (*CRX) 1 MG/ML SYR 0.5 MG IV PUSH (09:53)
--- NOTE | 2022-08-26 15:32 | PM.IMPN ---
Progress Note: A&P Assessment and Plan (1) Postoperative hypotension: Code(s): I95.81 - Postprocedural hypotension Status: Acute Assessment and Plan: Blood pressures were reportedly in the 70s systolic in PACU though not well documented. Floor nurse indicated that the patient received 2 doses of push doses of pressors. She was admitted to the medical floor. She was not symptomatic Metoprolol continued with parameters. She remains on IV fluids She is tolerating being up with PT/OT BP better so fluids decreased this morning. BP remains stable so stop IV fluids. (2) Lumbar stenosis: Code(s): M48.061 - Spinal stenosis, lumbar region without neurogenic claudication Status: Acute Assessment and Plan: Postoperative day 2 status post L3-4 posterior lumbar interbody fusion. Wound management, pain control, DVT prophylaxis per primary team (3) Paroxysmal atrial fibrillation: Code(s): I48.0 - Paroxysmal atrial fibrillation Status: Acute Assessment and Plan: Clinically with normal rate and rhythm. Continue flecainide and metoprolol with parameters. (4) Chronic anticoagulation: Code(s): Z79.01 - [facility] (current) use of anticoagulants Status: Acute Assessment and Plan: She has been off of warfarin for >7 days preoperatively. Resume when okay with surgeon. (5) Depression: Code(s): F32.A - Depression, unspecified Status: Acute Assessment and Plan: Mood stable. Continue bupropion, escitalopram, and aripiprazole. (6) RAZA (obstructive sleep apnea): Code(s): G47.33 - Obstructive sleep apnea (adult) (pediatric) Status: Acute Assessment and Plan: Patient hypoxic overnight. Patient has sleep apnea that is not treated. Suspect her hypoxia is related to untreated sleep apnea made worse by narcotics. Will perform ApneaLink on room air overnight of possible to assess for hypoxia at night and she may have nocturnal O2 requirements. Subjective Date/time seen: 08/26/22 15:32 Interval history: 71yo female with pAFib, HTN and depression status post L3-L4 posterior lumbar interbody fusion whom the hospitalist service has been consulted regarding postoperative hypotension.? Pain 5/10 at rest but 8/10 with activity. She has been up with therapy walking in the halls. No CP or SOB. No n/v. She has RAZA but refuses PAP therapy. She was noted to be hypoxic at night. Voiding since Puente removed. Drain out today. Exam Narrative: AF 98.0 138/80 70 20 93% 2L Gen - NARD Chest - CTA bilaterally, nml RR CV - RRR S1/S2 Abd - Soft, NT/ND, Positive BS Ext - No pedal edema. Psych - Nml mood and affect Skin - Warm and dry Objective Data Vital Signs Vital Signs: Vital Signs - 24 hr 08/25/22 16:00 08/25/22 18:00 08/25/22 20:20 Temperature 98.3 F Pulse Rate 65 69 Respiratory Rate 20 Blood Pressure 89/40 L 104/58 L Pulse Oximetry 90 Oxygen Delivery Oxygen Flow Rate 08/25/22 20:00 08/25/22 20:00 08/26/22 00:00 Temperature 98.5 F 98.6 F Pulse Rate 69 71 71 Respiratory Rate 20 20 20 Blood Pressure 92/56 L 125/65 Pulse Oximetry 90 96 97 Oxygen Delivery Room Air Oxygen Flow Rate 08/26/22 04:00 08/26/22 08:36 08/26/22 08:36 Temperature 98 F Pulse Rate 96 71 71 Respiratory Rate 20 Blood Pressure 140/90 Pulse Oximetry 96 Oxygen Delivery Oxygen Flow Rate 08/26/22 08:38 08/26/22 09:00 08/26/22 10:05 Temperature Pulse Rate 70 Respiratory Rate Blood Pressure 110/56 L Pulse Oximetry 98 88 L Oxygen Delivery Room Air Room Air Oxygen Flow Rate 08/26/22 10:05 08/26/22 13:17 Temperature Pulse Rate Respiratory Rate Blood Pressure 138/80 Pulse Oximetry 93 Oxygen Delivery Nasal Cannula Oxygen Flow Rate 2 Intake/Output Intake/Output: Intake & Output 08/23/22 08/24/22 08/25/22 08/26/22 23:59 23:59 23:59 23:59 Intake To
--- NOTE | 2022-08-26 22:22 | PCRCNOTE ---
apnea link placed room air sp02 94%
[2022-08-27] VITALS (12 sets, daily range): BP systolic 114–148; BP diastolic 48–89; PULSE 66–88; RESP 18–22; TEMP 36.6–38.8; O2SAT 92–100
[2022-08-27] MEDS: ACETAMINOPHEN 325 MG TABLET 650 MG PO ×2 (02:05→17:40)
--- NOTE | 2022-08-27 06:09 | PCRCNOTE ---
Apnea link evaluation time short. RT found apnea link unit off.
[2022-08-27] MEDS: oxyCODONE/ACETAMINOPHEN (*CRX) 5-325 MG TABLET 1 TABLET PO ×2 (06:20→09:59)
[2022-08-27] MEDS: buPROPion HCL XL (24 HR) 150 MG TABCR 300 MG PO (08:00)
[2022-08-27] MEDS: ARIPiprazole 5 MG TABLET PO (08:01)
[2022-08-27] MEDS: ROSUVASTATIN 10 MG TABLET 20 MG PO (08:01)
[2022-08-27] MEDS: ESCITALOPRAM OXALATE 10 MG TABLET 20 MG PO (08:01)
[2022-08-27] MEDS: FLECAINIDE ACETATE 50 MG TABLET PO ×2 (08:01→20:39)
[2022-08-27] MEDS: CHOLECALCIFEROL 1,000 UNITS TABLET 5000 UNITS PO (08:01)
[2022-08-27] MEDS: METOPROLOL SUCCINATE EXT REL 25 MG TABCR PO (08:02)
[2022-08-27] MEDS: DOCUSATE SODIUM 100 MG CAPSULE PO ×2 (08:02→20:40)
[2022-08-27] MEDS: PANTOPRAZOLE 40 MG TABLET PO (08:02)
[2022-08-27] MEDS: CALCIUM CARBONATE (OSCAL) 500 MG TABLET PO (08:02)
[2022-08-27] MEDS: CYCLOBENZAPRINE HCL 10 MG TABLET PO ×2 (10:00→20:40)
[2022-08-27 10:57] LABS: Basophils Percent Auto 0.2 % (0.2-1.2); Eosinophils Absolute Auto 0.2 K/mm3 (0-0.3); Hematocrit 29.3 % (37.0-47.0); Hemoglobin 9.5 g/dL (12.0-15.0); Immature Granulocyte Absolute 0.05 K/mm3 (0.00-0.031); Immature Granulocyte Percent A 0.6 % (0-0.5); Lymphocytes Absolute Auto 1.94 K/mm3 (0.9-3.2); Lymphocytes Percent Auto 21.6 % (18.3-44.2); Mean Corpuscular HGB Conc 32.4 g/dl (32-36); Mean Corpuscular Hemoglobin 29.8 pg (26-34); Mean Corpuscular Volume 91.8 fl (80-100); Mean Platelet Volume 9.3 fl (7.4-10.4); Monocytes Absolute Auto 0.8 K/mm3 (0.1-0.6); Monocytes Percent Auto 9.1 % (2.6-8.5); Neutrophils Percent Auto 66.5 % (45.5-73.1); Platelet Count Result 180 k/mm3 (150-375); Red Blood Count 3.19 M/mm3 (4.2-5.4); Red Cell Distribution Width 13.7 % (11.5-14.5)
[2022-08-27 11:06] LABS: Anion Gap 4 mmol/L (8-16); Blood Urea Nitrogen 15 mg/dL (7-17); Calcium 7.9 mg/dL (8.4-10.2); Carbon Dioxide 28 mmol/L (22-30); Chloride 105 mmol/L (98-107); Estimated CRCL calculation 61 ml/min; Estimated Glomerular Filt Rate > 60; Glucose 87 mg/dL (65-110); Potassium 3.9 mmol/L (3.4-5.0); Sodium 137 mmol/L (137-145)
--- NOTE | 2022-08-27 15:43 | PM.IMPN ---
Progress Note: A&P Assessment and Plan (1) Fever: Code(s): R50.9 - Fever, unspecified Status: Acute Assessment and Plan: Patient now with fever. Probably atelectasis. Encouraged her to use incentive spirometry. Will check chest x-ray given her productive cough. No complaints of urinary symptoms but does have urine incontinence. Will check a UA as well. No clinical evidence of wound infection. (2) Confusion: Code(s): R41.0 - Disorientation, unspecified Status: Acute Assessment and Plan: Patient more confused today. Possibly related to fever. Or from the narcotics. Consider also related to elevated CO2 given her untreated sleep apnea made worse with narcotics. No focal weakness to suggest stroke. Agree with decreasing narcotics. Check ABG. Consider CT brain if she does not improved (hx of AFib and not on anticoagulation). (3) Postoperative hypotension: Code(s): I95.81 - Postprocedural hypotension Status: Acute Assessment and Plan: Blood pressures were reportedly in the 70s systolic in PACU though not well documented. Floor nurse indicated that the patient received 2 doses of push doses of pressors. She was admitted to the medical floor. She was not symptomatic. She was treated with IV fluids. Metoprolol has been continued with parameters. She is tolerating being up with PT/OT. BP improved and fluids were weaned off. Resolved. Continue to follow. (4) Lumbar stenosis: Code(s): M48.061 - Spinal stenosis, lumbar region without neurogenic claudication Status: Acute Assessment and Plan: Postoperative day 3 status post L3-4 posterior lumbar interbody fusion. Wound management, pain control, DVT prophylaxis per primary team. SCDs ordered (5) Paroxysmal atrial fibrillation: Code(s): I48.0 - Paroxysmal atrial fibrillation Status: Acute Assessment and Plan: Clinically with normal rate and rhythm. Continue flecainide and metoprolol with parameters. (6) Chronic anticoagulation: Code(s): Z79.01 - long term acute care registered nurse (current) use of anticoagulants Status: Acute Assessment and Plan: She has been off of warfarin for >7 days preoperatively. Resume when okay with surgeon. (7) Depression: Code(s): F32.A - Depression, unspecified Status: Acute Assessment and Plan: Mood stable. Continue bupropion, escitalopram, and aripiprazole. (8) ARZA (obstructive sleep apnea): Code(s): G47.33 - Obstructive sleep apnea (adult) (pediatric) Status: Acute Assessment and Plan: Patient has been hypoxic at night. Patient has untreated sleep apnea. Suspect her hypoxia is related to untreated sleep apnea made worse by narcotics. ApneaLink not able to be performed. Will repeat ApneaLink on room air to assess for hypoxia at night and need for nocturnal O2 requirements. Subjective Date/time seen: 08/27/22 15:43 Interval history: 71yo female with pAFib, HTN and depression status post L3-L4 posterior lumbar interbody fusion whom the hospitalist service has been consulted regarding postoperative hypotension.? Pain unchanged with 5/10 at rest but 8/10 with activity. She is confused today and has to be redirected at times. Fever last night and this morning. Complains of right leg pain and having difficulty moving the leg. Denies numbness or tingling in the feet. Has a cough productive of green sputum. No dysuria or hematuria. No CP or SOB. No odynophagia or dysphagia Exam Narrative: Tm 101.8 118/58 88 20 98% ra Gen - NARD lying almost flat in bed Chest - CTA bilaterally, nml RR CV - RRR S1/S2 Abd - Soft, NT/ND, Positive BS Back - vertical midline lumbar dressing with old serous staining. Ext - No pedal edema. Negative Homans, no cords Neuro - normal plantar and dorsiflexion. 3/5 hip flexors bilaterally. nml sensation to the feet. Psych - Nml mood. mildly confused at times but oriented x4 S
[2022-08-27 16:45] LABS: Alveolar/Arterial O2 Gradient 51.6 mmHg; Fractional Inspired Oxygen 21 %; HCO3 ABG 24.3 mEq/l (22.0-26.0); Oxygen Content ABG 12.2 %vol (16.0-22.0); Oxygen Saturation ABG 92.2 % (95.0-100.0); Oxyhemoglobin 90.2 % THb (90.0-100.0); PCO2 ABG 33.4 mmHg (35.0-45.0); PO2 ABG 58.1 mmHg (80.0-100.0); PO2 FiO2 Ratio Arterial Blood 2.77 %; Total Hemoglobin 9.6 g/dL (12.0-18.0); pH ABG 7.479 (7.350-7.450)
[2022-08-27 16:49] LABS: Device ROOM AIR; Modified Allen's Test Pass; Site Drawn LEFT RADIAL
[2022-08-27 17:03] LABS: Appearance Urine Clear (Clear); Bilirubin Urine Negative (Negative); Blood Urine Negative (Negative); Color Urine Yellow (Yellow); Glucose Urine UA Negative (Negative); Ketones Urine Negative (Negative); Leukocyte Esterase Ur Negative LEU/UL (Negative); Nitrate Urine Negative (Negative); Protein Urine Negative (Negative); Specific Grav Ur 1.011 (1.001-1.035); pH Urine 6.5 (5.0-9.0)
[2022-08-27 17:26] LABS: Add Urine Microscopic? NO
[2022-08-28] VITALS (10 sets, daily range): BP systolic 100–124; BP diastolic 49–68; PULSE 70–77; RESP 14–20; TEMP 36.3–37.6; O2SAT 94–98
[2022-08-28] MEDS: CHOLECALCIFEROL 1,000 UNITS TABLET 5000 UNITS PO (09:06)
[2022-08-28] MEDS: CALCIUM CARBONATE (OSCAL) 500 MG TABLET PO (09:06)
[2022-08-28] MEDS: buPROPion HCL XL (24 HR) 150 MG TABCR 300 MG PO (09:06)
[2022-08-28] MEDS: oxyCODONE/ACETAMINOPHEN (*CRX) 5-325 MG TABLET 1 TABLET PO (09:07)
[2022-08-28] MEDS: ESCITALOPRAM OXALATE 10 MG TABLET 20 MG PO (09:07)
[2022-08-28] MEDS: ARIPiprazole 5 MG TABLET PO (09:07)
[2022-08-28] MEDS: FLECAINIDE ACETATE 50 MG TABLET PO ×2 (09:07→21:02)
[2022-08-28] MEDS: DOCUSATE SODIUM 100 MG CAPSULE PO ×2 (09:08→21:02)
[2022-08-28] MEDS: METOPROLOL SUCCINATE EXT REL 25 MG TABCR PO (09:08)
[2022-08-28] MEDS: ROSUVASTATIN 10 MG TABLET 20 MG PO (09:08)
[2022-08-28] MEDS: PANTOPRAZOLE 40 MG TABLET PO (09:08)
[2022-08-28 10:10] LABS: Influenza A QL RT-PCR Negative (Negative); Influenza B QL RT-PCR Negative (Negative); RSV RNA, RT-PCR Negative (Negative); SARS-CoV-2 RNA PCR Negative (Negative)
--- NOTE | 2022-08-28 12:27 | PM.IMPN ---
Progress Note: A&P Assessment and Plan (1) Fever: Code(s): R50.9 - Fever, unspecified Status: Acute Assessment and Plan: Patient developed fever. CXR showing crowding. UA clear. COVID negative. No clinical evidence of wound infection. Probably atelectasis. Encouraged her to use incentive spirometry. (2) Confusion: Code(s): R41.0 - Disorientation, unspecified Status: Acute Assessment and Plan: Patient more confused yesterday. Possibly related to fever and/or narcotics. ABG did not show elevated CO2 levels. No focal weakness to suggest stroke. Narcotics decreased. Much better today. (3) Postoperative hypotension: Code(s): I95.81 - Postprocedural hypotension Status: Acute Assessment and Plan: Blood pressures were reportedly in the 70s systolic in PACU though not well documented. Floor nurse indicated that the patient received 2 doses of push doses of pressors. She was admitted to the medical floor. She was not symptomatic. She was treated with IV fluids. Metoprolol was continued with parameters. She is tolerating being up with PT/OT. BP improved and fluids were weaned off. Resolved. Continue to follow. (4) Lumbar stenosis: Code(s): M48.061 - Spinal stenosis, lumbar region without neurogenic claudication Status: Acute Assessment and Plan: Postoperative day 4 status post L3-4 posterior lumbar interbody fusion. Wound management, pain control, DVT prophylaxis per primary team. SCDs ordered (5) Paroxysmal atrial fibrillation: Code(s): I48.0 - Paroxysmal atrial fibrillation Status: Acute Assessment and Plan: Clinically with normal rate and rhythm. Continue flecainide and metoprolol with parameters. Resume anticoagulation when okay with primary team (6) Chronic anticoagulation: Code(s): Z79.01 - group home (current) use of anticoagulants Status: Acute Assessment and Plan: She has been off of warfarin for >7 days preoperatively. Resume when okay with surgeon. (7) Depression: Code(s): F32.A - Depression, unspecified Status: Acute Assessment and Plan: Mood stable. Continue bupropion, escitalopram, and aripiprazole. (8) RAZA (obstructive sleep apnea): Code(s): G47.33 - Obstructive sleep apnea (adult) (pediatric) Status: Acute Assessment and Plan: Patient was hypoxic at night. Patient has untreated sleep apnea. Suspect her hypoxia is related to untreated sleep apnea made worse by narcotics. ApneaLink repeated but does not need nocturnal O2. Defer further evaluation to the PCP. Subjective Date/time seen: 08/28/22 12:27 Interval history: 71yo female with pAFib, HTN and depression status post L3-L4 posterior lumbar interbody fusion whom the hospitalist service has been consulted regarding postoperative hypotension.? Feels better overall. Pain better and worse when trying to get into and out of bed. Walking in halls up to 300 ft Exam Narrative: Tm 101.0 97.3 121/55 74 19 95% ra Gen - NARD lying almost flat in bed Chest - CTA anteriorly and in the flanks, nml RR CV - RRR S1/S2 Abd - Soft, NT/ND, Positive BS Ext - No pedal edema Psych - Nml mood. Alert and oriented x4 Skin - Warm and dry Objective Data Vital Signs Vital Signs: Vital Signs - 24 hr 08/27/22 16:00 08/27/22 17:40 08/27/22 20:39 Temperature 101 F H 101.0 F H Pulse Rate 76 67 Respiratory Rate 20 Blood Pressure 114/48 L Pulse Oximetry 98 Oxygen Delivery 08/27/22 20:00 08/27/22 20:00 08/28/22 05:37 Temperature 98.5 F Pulse Rate 66 Respiratory Rate 20 Blood Pressure 128/58 L Pulse Oximetry 92 94 Oxygen Delivery Room Air 08/28/22 00:00 08/28/22 04:00 08/28/22 07:40 Temperature 99.7 F H 99.6 F Pulse Rate 70 77 Respiratory Rate 20 18 Blood Pressure 124/68 120/58 L Pulse Oximetry 95 98 Oxygen Delivery Room Air 08/28/22 09
[2022-08-28] MEDS: CYCLOBENZAPRINE HCL 10 MG TABLET PO (21:02)
[2022-08-29 04:00] VITALS: BP 128/62; PULSE 73; RESP 14; TEMP 36.5; O2SAT 99
[2022-08-29] MEDS: DOCUSATE SODIUM 100 MG CAPSULE PO ×2 (08:40→20:42)
[2022-08-29] MEDS: buPROPion HCL XL (24 HR) 150 MG TABCR 300 MG PO (08:40)
[2022-08-29] MEDS: ARIPiprazole 5 MG TABLET PO (08:40)
[2022-08-29] MEDS: CHOLECALCIFEROL 1,000 UNITS TABLET 5000 UNITS PO (08:40)
[2022-08-29] MEDS: CALCIUM CARBONATE (OSCAL) 500 MG TABLET PO (08:40)
[2022-08-29 08:41] VITALS: PULSE 75
[2022-08-29] MEDS: ESCITALOPRAM OXALATE 10 MG TABLET 20 MG PO (08:41)
[2022-08-29] MEDS: FLECAINIDE ACETATE 50 MG TABLET PO ×2 (08:41→21:14)
[2022-08-29 08:42] VITALS: PULSE 75
[2022-08-29] MEDS: ROSUVASTATIN 10 MG TABLET 20 MG PO (08:42)
[2022-08-29] MEDS: METOPROLOL SUCCINATE EXT REL 25 MG TABCR PO (08:42)
[2022-08-29] MEDS: PANTOPRAZOLE 40 MG TABLET PO (08:42)
[2022-08-29] MEDS: HYDROcodone/acetaminophen (*CRX) 5-325 MG TABLET 1 TAB PO (08:43)
--- NOTE | 2022-08-29 13:12 | PM.IMPN ---
Progress Note: A&P Assessment and Plan (1) Fever: Code(s): R50.9 - Fever, unspecified Status: Acute Assessment and Plan: Patient developed fever. CXR showing vascular crowding; doubt PNA or edema. UA clear. COVID negative. No clinical evidence of wound infection. Probably atelectasis. Encouraged her to use incentive spirometry and being out of bed. (2) Confusion: Code(s): R41.0 - Disorientation, unspecified Status: Acute Assessment and Plan: Patient was more confused in felt related to fever and/or narcotics. ABG did not show elevated CO2 levels. No focal weakness to suggest stroke. Narcotics decreased. Mental status has return to normal. (3) Postoperative hypotension: Code(s): I95.81 - Postprocedural hypotension Status: Acute Assessment and Plan: Blood pressures were reportedly in the 70s systolic in PACU though not well documented. Floor nurse indicated that the patient received 2 doses of push doses of pressors. She was admitted to the medical floor. She was not symptomatic. She was treated with IV fluids. Metoprolol was continued with parameters. She is tolerating being up with PT/OT. BP improved and fluids were weaned off. She remains off of Lasix and Lisinopril Resolved. Continue to follow. (4) Lumbar stenosis: Code(s): M48.061 - Spinal stenosis, lumbar region without neurogenic claudication Status: Acute Assessment and Plan: Postoperative day 5 status post L3-4 posterior lumbar interbody fusion. Wound management, pain control, DVT prophylaxis per primary team. SCDs ordered (5) Paroxysmal atrial fibrillation: Code(s): I48.0 - Paroxysmal atrial fibrillation Status: Acute Assessment and Plan: Clinically with normal rate and rhythm. Continue flecainide and metoprolol with parameters. Resume anticoagulation when okay with primary team (6) Chronic anticoagulation: Code(s): Z79.01 - group home (current) use of anticoagulants Status: Acute Assessment and Plan: She has been off of warfarin for >7 days preoperatively. Resume when okay with surgeon. (7) Depression: Code(s): F32.A - Depression, unspecified Status: Acute Assessment and Plan: Mood stable. Continue bupropion, escitalopram, and aripiprazole. (8) RAZA (obstructive sleep apnea): Code(s): G47.33 - Obstructive sleep apnea (adult) (pediatric) Status: Acute Assessment and Plan: Patient was hypoxic at night. Patient has untreated sleep apnea. Suspect her hypoxia is related to untreated sleep apnea made worse by narcotics. ApneaLink repeated but does not need nocturnal O2 (37min with SpO2<88%). Defer further evaluation to the PCP. Subjective Date/time seen: 08/29/22 13:12 Interval history: 71yo female with pAFib, HTN and depression status post L3-L4 posterior lumbar interbody fusion whom the hospitalist service has been consulted regarding postoperative hypotension.? Patient slept well. No chest pain or shortness of breath. No nausea or vomiting Exam Narrative: AF 97.7 128/62 75 14 99% ra Gen - NARD lying almost flat in bed Chest - CTA bilaterally, nml RR CV - RRR S1/S2 Abd - Soft, NT/ND, Positive BS Ext - No pedal edema Psych - Nml mood. Alert and oriented Skin - Warm and dry Objective Data Vital Signs Vital Signs: Vital Signs - 24 hr 08/28/22 14:00 08/28/22 20:00 08/28/22 21:02 Temperature 99.4 F 98.1 F Pulse Rate 71 72 75 Respiratory Rate 20 14 Blood Pressure 100/54 L 100/49 L Pulse Oximetry 94 97 08/28/22 23:57 08/29/22 04:00 08/29/22 08:41 Temperature 97.5 F L 97.7 F Pulse Rate 71 73 75 Respiratory Rate 14 14 Blood Pressure 105/58 L 128/62 Pulse Oximetry 98 99 08/29/22 08:42 Temperature Pulse Rate 75 Respiratory Rate Blood Pressure Pulse Oximetry Intake/Output Intake/Output: Intake & Output 08/26/22 08/27/22 0
[2022-08-29 13:15] VITALS: BP 104/61; PULSE 70; RESP 20; TEMP 36.7; O2SAT 93
[2022-08-29 21:41] VITALS: BP 113/50; PULSE 68; RESP 14; TEMP 36.4; O2SAT 97
[2022-08-29] MEDS: SENNA/DOCUSATE SODIUM TABLET 1 TAB PO (21:44)
[2022-08-29] MEDS: ACETAMINOPHEN 325 MG TABLET 650 MG PO (22:56)
[2022-08-30 00:25] VITALS: BP 100/54; PULSE 80; RESP 22; TEMP 36.7; O2SAT 93
[2022-08-30 05:56] VITALS: BP 102/47; PULSE 71; RESP 14; TEMP 36.2; O2SAT 93
[2022-08-30 08:47] VITALS: PULSE 84
[2022-08-30] MEDS: buPROPion HCL XL (24 HR) 150 MG TABCR 300 MG PO (08:47)
[2022-08-30] MEDS: FLECAINIDE ACETATE 50 MG TABLET PO (08:47)
[2022-08-30] MEDS: ESCITALOPRAM OXALATE 10 MG TABLET 20 MG PO (08:47)
[2022-08-30 08:48] VITALS: PULSE 84
[2022-08-30] MEDS: CHOLECALCIFEROL 1,000 UNITS TABLET 5000 UNITS PO (08:48)
[2022-08-30] MEDS: METOPROLOL SUCCINATE EXT REL 25 MG TABCR PO (08:48)
[2022-08-30] MEDS: CALCIUM CARBONATE (OSCAL) 500 MG TABLET PO (08:48)
[2022-08-30] MEDS: ROSUVASTATIN 10 MG TABLET 20 MG PO (08:48)
[2022-08-30] MEDS: PANTOPRAZOLE 40 MG TABLET PO (08:50)
[2022-08-30] MEDS: ARIPiprazole 5 MG TABLET PO (08:50)
[2022-08-30] MEDS: ACETAMINOPHEN 325 MG TABLET 650 MG PO (08:59)
[2022-08-30] MEDS: DOCUSATE SODIUM 100 MG CAPSULE PO (09:00)
--- NOTE | 2022-08-30 11:08 | PM.IMPN ---
Progress Note: A&P Assessment and Plan (1) Fever: Code(s): R50.9 - Fever, unspecified Status: Acute Assessment and Plan: Patient developed fever. CXR showing vascular crowding; doubt PNA or edema. UA clear. COVID negative. No clinical evidence of wound infection. Probably atelectasis. Encouraged her to use incentive spirometry and being out of bed. (2) Confusion: Code(s): R41.0 - Disorientation, unspecified Status: Acute Assessment and Plan: Patient was more confused in felt related to fever and/or narcotics. ABG did not show elevated CO2 levels. No focal weakness to suggest stroke. Narcotics decreased. Mental status has return to normal. 08/30: Seroquel 12.5 mg at discharge to help ease intermittent delirium, follow-up outpatient if this does not resolve once leaving the hospital (3) Postoperative hypotension: Code(s): I95.81 - Postprocedural hypotension Status: Acute Assessment and Plan: Blood pressures were reportedly in the 70s systolic in PACU though not well documented. Floor nurse indicated that the patient received 2 doses of push doses of pressors. She was admitted to the medical floor. She was not symptomatic. She was treated with IV fluids. Metoprolol was continued with parameters. She is tolerating being up with PT/OT. BP improved and fluids were weaned off. She remains off of Lasix and Lisinopril Resolved. Continue to follow. (4) Lumbar stenosis: Code(s): M48.061 - Spinal stenosis, lumbar region without neurogenic claudication Status: Acute Assessment and Plan: Postoperative status post L3-4 posterior lumbar interbody fusion. Wound management, pain control, DVT prophylaxis per primary team. SCDs ordered (5) Paroxysmal atrial fibrillation: Code(s): I48.0 - Paroxysmal atrial fibrillation Status: Acute Assessment and Plan: Clinically with normal rate and rhythm. Continue flecainide and metoprolol with parameters. Resume anticoagulation when okay with primary team (6) Chronic anticoagulation: Code(s): Z79.01 - skilled nursing (current) use of anticoagulants Status: Acute Assessment and Plan: She has been off of warfarin for >7 days preoperatively. Resume when okay with surgeon. (7) Depression: Code(s): F32.A - Depression, unspecified Status: Acute Assessment and Plan: Mood stable. Continue bupropion, escitalopram, and aripiprazole. (8) RAZA (obstructive sleep apnea): Code(s): G47.33 - Obstructive sleep apnea (adult) (pediatric) Status: Acute Assessment and Plan: Patient was hypoxic at night. Patient has untreated sleep apnea. Suspect her hypoxia is related to untreated sleep apnea made worse by narcotics. ApneaLink repeated but does not need nocturnal O2 (37min with SpO2<88%). Defer further evaluation to the PCP. Subjective Date/time seen: 08/30/22 11:08 Interval history: 71yo female with pAFib, HTN and depression status post L3-L4 posterior lumbar interbody fusion whom the hospitalist service has been consulted regarding postoperative hypotension.? No overnight events noted. No chest pain or shortness of breath. No nausea, vomiting or diarrhea. No fevers or chills. Family requesting medication to help some acute delirium. Review of Systems Review of Systems: 12 point review of systems was assessed and was negative except as noted in the HPI Exam Narrative: General: No acute distress, alert and oriented per baseline HEENT: Atraumatic, normocephalic, mucous membranes moist CV: Regular rate and rhythm, S1, S2 Lungs: Clear to auscultation bilaterally, no rales or crackles noted, no wheezes, good air entry Abdomen: Soft, nontender, nondistended Extremities: Normal to inspection Skin: No rashes noted, no lesions or wounds seen Psych: Euthymic, normal affect Objective Data Vital Signs V
[2022-08-30] MEDS: polyethylene glycoL 3350 17 GM POWD.PACK PO (11:33)
--- NOTE | 2022-09-03 20:30 | PM.DS ---
DS: Admitting Diagnosis Discharge Date 08/30/22 Admitting Diagnosis Lumbar stenosis DS: Discharge Diagnosis Discharge Diagnosis (1) Lumbar stenosis: Code(s): M48.061 - Spinal stenosis, lumbar region without neurogenic claudication Status: Acute DS: Summary Hospital Course Hospital Course: Ms. Arora was taken to the operating room on 08/24/2022 where an L3-4 posterior lumbar interbody fusion was performed without complication. She went for postop knee. Physical and occupational therapy were involved her care. She was ambulating and making transfers independently. Her drain and Puente catheter removed by postoperative day 2. She was in fact discharged but then her discharge was held by her granddaughter who works at the hospital for concerns of fever and confusion. She was likely overmedicated and had atelectasis. General Medicine was involved and took over her care. These issues resolved, as expected. She did not qualify for rehab, also as expected. She was therefore discharged to home with home health. Status at Discharge Functional status at discharge: uses cane/walker Time Spent with Patient Time attestation: Total time spent providing and/or coordinating discharge services: Discharge Plan Discharge Attending physician on discharge: aNtan Gage Consulting providers: Keyonna Reynoso; Dani Ortega; Kirby Motta; Isabel Esteves; Og Sanchez; Rogers Gatica; Soha Sandoval Discharging Clinician: Natan Gage Anticipated Discharge Date/Time: 08/30/22 13:37 Patient Disposition: Home Health Service Activity: july shower Diet: regular Wound Care Instructions: incision open to air Discharge Instructions: Per Care Coordination, pt will be receiving skilled RN, PT/OT eval and treat with [facility] ([phone]). desktop support associate please fax discharge to [facility] at [phone] No exaggerated bending, lifting, twisting. Keep wound open to air. Ok to shower. Do no submerge wound in water, no pool, bath, or hottub for 6 weeks. Pain control with muscle relaxer 3x/day and use 1-2 tablets of Percocet every 6-8 hours for pain control Patient Instructions: Antibiotic Form, Warfarin (By mouth), Pain Management in Older Adults (GEN) Stand Alone Forms: General Discharge Information Follow-up/Referrals: Stalin Najera MD [Physician] - Call for Appointment (F/u in 6 weeks in clinic ) Discharge Medications: New cyclobenzaprine 10 mg tablet 10 mg PO TID PRN (Reason: Muscle Spasms) Qty: 60 0RF sennosides-docusate sodium [Senokot-S] 8.6-50 mg Tablet 1 tab PO HS PRN (Reason: Constipation) Qty: 30 1RF oxycodone-acetaminophen 5-325 mg Tablet 1 - 2 tablet PO Q6-8H PRN (Reason: Pain Rated 4-6) Qty: 50 0RF cephalexin 500 mg capsule 500 mg PO Q6H 7 Days Qty: 28 0RF quetiapine [Seroquel] 25 mg tablet 12.5 mg PO HS Qty: 10 0RF Continued nitroglycerin 0.4 mg tablet, sublingual 0.4 mg sublingual Q5M PRN (Reason: chest pain) Qty: 30 1RF Rx Instructions: do not exceed 3 doses per episode flecainide 50 mg tablet 50 mg PO Q12H Qty: 60 5RF acetaminophen 500 mg Capsule 1,000 mg PO Q6H PRN (Reason: Pain) metoprolol succinate 50 mg tablet extended release 24 hr 25 mg PO QAM warfarin 5 mg tablet 2.5 mg PO DAILY Rx Instructions: TAKE 1 TABLET BY MOUTH EVERY DAY omeprazole 20 mg capsule,delayed release(DR/EC) 20 mg PO QAM Rx Instructions: TAKE 1 CAPSULE BY MOUTH EVERY DAY lisinopril 40 mg tablet 40 mg PO QAM escitalopram oxalate 20 mg tablet 20 mg PO QAM Rx Instructions: TAKE 1 TABLET BY MOUTH EVERY DAY aripiprazole 5 mg tablet 5 mg PO QAM cholecalciferol (vitamin D3) 125 mcg (5,000 unit) capsule 125 mcg PO DAILY fexofenadine [Scarlett Allergy] 60 mg tablet 60 mg PO Q12H PRN (Reason: Allergy Symptoms) calcium carbonate 500 mg calcium (1,250
== END 2022-08-30 14:25 | disposition home health service (06) | DRG 460 ==
LOC: ANH3MEDSUR 12:30
PROVIDERS: Internal Medicine; Neurological Surgery; Physician Assistant; Admitting Provider Neurological Surgery; PCP Internal Medicine; Visit Provider Neurological Surgery
PROC: 0SG00AJ Fusion of Lumbar Vertebral Joint with Interbody Fusion Device, Posterior Approach, Anterior Column, Open Approach (ICD-10-PCS; CPT 22612; principal; 2022-08-24 08:00)
DX: M48.062 Spinal stenosis, lumbar region with neurogenic claudication (principal); J95.89 Other postprocedural complications and disorders of respiratory system, not elsewhere classified; J98.11 Atelectasis; I95.81 Postprocedural hypotension; R09.02 Hypoxemia; T40.605A Adverse effect of unspecified narcotics, initial encounter; R50.9 Fever, unspecified; I48.0 Paroxysmal atrial fibrillation; G47.33 Obstructive sleep apnea (adult) (pediatric); F32.A Depression, unspecified; Z20.822 Contact with and (suspected) exposure to COVID-19; E78.00 Pure hypercholesterolemia, unspecified; K21.9 Gastro-esophageal reflux disease without esophagitis; I10 Essential (primary) hypertension; E66.9 Obesity, unspecified; Z68.35 Body mass index [BMI] 35.0-35.9, adult; Z79.01 Long term (current) use of anticoagulants; Z90.710 Acquired absence of both cervix and uterus; Z87.891 Personal history of nicotine dependence
CPT/HCPCS: 36415; 36600; 70450; 71045; 80048; 81003; 82805; 83735; 85025; 85027; 85610; 85730; 87637; 94762; 97110; 97116; 97161; 97165; 97530; 97535; 99199; A9270; C1713; J0330; J0690; J1100; J1170; J2250; J2370; J2405; J2704; J3010; J3480; J7120

== ENCOUNTER 2022-09-05 13:03 | Outpatient (RCR) | payer OTHER, SELFPAY ==
[2022-08-07 12:04] LABS: INR 1.5; Prothrombin Time 18.4 Seconds (11.1-14.7)
[2022-08-14 15:28] LABS: INR 2.3; Prothrombin Time 27.2 Seconds (11.1-14.7)
[2022-09-05 13:58] LABS: INR 2.3; Prothrombin Time 26.4 Seconds (11.1-14.7)
== END 2022-11-05 23:59 | disposition home or self-care (01) ==
LOC: ANHLAB 13:03
PROVIDERS: PCP Internal Medicine; Visit Provider Internal Medicine Cardiovascular Disease
DX: I48.91 Unspecified atrial fibrillation (principal)
CPT/HCPCS: 36415; 85610

== ENCOUNTER 2022-10-16 07:24 | Outpatient (CLI) | payer OTHER, SELFPAY ==
--- NOTE | ~2022-10-16 | XR_ITS ---
XR lumbar spine 2-3V DATE: 10/16/2022 07:39 INDICATION: Postoperative follow-up for arthrodesis TECHNIQUE: Standing AP, lateral and coned lateral lumbosacral views of the lumbar spine COMPARISON: 07/24/2022 CT lumbar spine 06/30/2022 lumbar spine FINDINGS: Since 06/30/2022 there are pedicle screws and rods at L2-L4 and interbody spinal fusion at L 3-4. No significant change of the prior posterior and interbody spinal fusion at L4-S1 06/30/2022. Degenerative spurring of the lower thoracic spine. Prominent degenerative disc disease at T12-L1, mod erate degenerative disc disease and mild retrolisthesis at L1-2. Mild retrolisthesis at L2-3. There is a battery device in the right gluteal subcutaneous tissues with left sacral neurotransmitter lead. Extensive calcification L aorta and common iliac arteries, without apparent aneurysm. IMPRESSION: Interval posterior pedicle screws and rods at L2-L4 and interbody spinal fusion at L3-4 s ricki 06/30/2022 Reviewed, dictated and finalized at location B. IMPRESSION: Interval posterior pedicle screws and rods at L2-L4 and interbody s ericka fusion at L3-4 since 06/30/2022
== END 2022-10-16 07:25 | disposition home or self-care (01) ==
PROVIDERS: PCP Family Medicine; Visit Provider Neurological Surgery
DX: Z98.1 Arthrodesis status (principal)
CPT/HCPCS: 72100

== ENCOUNTER 2023-01-09 12:53 | Outpatient (RCR) | payer OTHER, SELFPAY ==
[2022-11-09 10:44] LABS: INR 3.7; Prothrombin Time 39.6 Seconds (11.1-14.7)
[2022-12-05 08:49] LABS: INR 2.2; Prothrombin Time 25.8 Seconds (11.1-14.7)
[2023-01-09 14:22] LABS: Prothrombin Time 24.2 Seconds (11.1-14.7)
== END 2023-02-07 23:59 | disposition home or self-care (01) ==
LOC: ANHLAB 12:53
PROVIDERS: PCP Family Medicine; Visit Provider Internal Medicine Cardiovascular Disease
DX: I48.91 Unspecified atrial fibrillation (principal)
CPT/HCPCS: 36415; 85610

== ENCOUNTER 2023-01-29 09:17 | Outpatient (CLI) | payer OTHER, SELFPAY ==
--- NOTE | 2023-02-18 15:42 | WPDSLEEPSTUD ---
Sleep Study Date of Study: 01/29/23 Ordering Provider: David Mcnamara APRN Interpreting Physician: Vanessa Alvarez MD Sleep Study Type: Split Polysomnogram Height: 1.57 m Weight: 81.647 kg Body Mass Index: 32.9 Neck Circumference (inches): 15 [place]: 3 Reason for Sleep Study History of obstructive sleep apnea, witnessed apnea while she was in the hospital, was recommended to have repeat testing Sleep History Sarika Arora is a 72-year-old woman with diagnosed obstructive sleep apnea, has not used CPAP for several years. She was in the hospital recently, had witnessed apneas. She agreed to repeat testing.. She rarely awakens from sleep short of breath. She occasionally wakes at night with heartburn, belching or coughing.??She constantly snores, constantly snores loudly enough that others complain. She never has trouble sleeping when she has a cold. She never wakes up gasping for breath during the night. She never has breathing problems at night. She never sweats excessively at night. She occasionally notices her heart pounding or beating irregularly during the night. She frequently falls asleep during the day. She rarely falls asleep involuntarily, never falls asleep while driving. She never experiences loss of muscle tone with strong emotion. She never feels paralyzed on waking or falling asleep. She never experiences vivid dreams upon waking or falling asleep. She never feels afraid of going to sleep. She never has nightmares. She occasionally recalls her dreams. She never has thoughts racing through her mind. She never feels sad or depressed. She never feels anxiety. She never notices parts of her body jerk. She never kicks during the night. She never feels crawling or aching feelings in her legs. She never feels leg pain at night. She rarely has morning jaw pain, and never grinds her teeth at night. She rarely feels bothered by pain during the day, is occasionally awakened by pain during the night. She never wakes up feeling stiff in the morning, never wakes feeling sore or achy in the morning. She occasionally awakens with pain in her neck, spine, or joints. she has fatigue, memory problems and palpitations. Normal bedtime is 10:00 p.m., falling asleep within 30 minutes. She wakes up 2-3 times during the night to go to the bathroom. She reports getting between 6 and 8 hours of sleep per night. Her wake time is between 5:00 a.m. and 6:00 a.m.. She keeps the same schedule on weekends. she takes naps in the afternoon or evening however short nap lasting 10-15 minutes is not refreshing. She rarely awakens feeling refreshed. Habits:??Tobacco: quit years ago Caffeine: 1 cup of coffee per day. Alcohol:none Recreational substances: none [facility] Past Medical History Medical History (Updated 02/18/23 @ 16:18 by Vanessa Alvarez MD) Adenomatous colon polyp Chronic anticoagulation Depression Diverticulitis Essential (primary) hypertension Gastroesophageal reflux disease RAZA (obstructive sleep apnea) Paroxysmal atrial fibrillation Postmenopausal Pure hypercholesterolemia Stress incontinence Surgical History Surgical History History of back surgery History of benign breast biopsy History of hysterectomy (1994) Sacral nerve stimulator present Family History Family History Father Family history of throat cancer Patient's father is Sibling Patient's brother is Acute myocardial infarction Diabetes mellitus Other Family history of cardiovascular disease Family history of malignant neoplasm Hypertension Social History Social History Smoking packs per day: 1 Smoking cigarettes per day: 20.0 Years smoked: 10 Smoking pack-years: 10.00 Smoking status: Former smoker Tobacco type: cigaret
[2023-02-19 13:12] VITALS: BMI 32.9
== END 2023-01-30 05:52 | disposition home or self-care (01) ==
LOC: ANHCSM 09:18
PROVIDERS: PCP Nurse Practitioner; Visit Provider Nurse Practitioner
DX: G47.33 Obstructive sleep apnea (adult) (pediatric) (principal); G47.39 Other sleep apnea
CPT/HCPCS: 95811

== ENCOUNTER 2023-02-28 10:08 | Outpatient (CLI) | payer OTHER, SELFPAY ==
[2023-02-28 10:39] LABS: INR 2.8; Prothrombin Time 32.1 Seconds (11.1-14.7)
== END 2023-02-28 10:09 | disposition home or self-care (01) ==
PROVIDERS: PCP Nurse Practitioner; Visit Provider Internal Medicine Cardiovascular Disease
DX: I48.91 Unspecified atrial fibrillation (principal)
CPT/HCPCS: 36415; 85610

== ENCOUNTER 2023-03-29 09:48 | Outpatient (CLI) | payer OTHER, SELFPAY ==
[2023-03-29 10:54] LABS: Hematocrit 44.1 % (37.0-47.0); Hemoglobin 13.9 g/dL (12.0-15.0); Mean Corpuscular HGB Conc 31.5 g/dl (32-36); Mean Corpuscular Volume 92.1 fl (80-100); Mean Platelet Volume 10.1 fl (7.4-10.4); Platelet Count Result 294 k/mm3 (150-375); Red Blood Count 4.79 M/mm3 (4.2-5.4); Red Cell Distribution Width 13.2 % (11.5-14.5); White Blood Count 7.8 K/mm3 (4.5-10.0)
[2023-03-29 11:07] LABS: Hemoglobin A1C 5.3 % (<5.7)
[2023-03-29 11:12] LABS: Alanine Aminotransferase 21 U/L (6-35); Albumin Level 4.1 g/dL (3.5-5.1); Alkaline Phosphatase 108 U/L (38-126); Anion Gap 11 mmol/L (8-16); Aspartate Amino Transferase 25 U/L (14-36); Bilirubin,Total 0.7 mg/dL (0.2-1.3); Blood Urea Nitrogen 28 mg/dL (7-17); Calcium 9.2 mg/dL (8.4-10.2); Carbon Dioxide 20 mmol/L (22-30); Chloride 106 mmol/L (98-107); Cholesterol 221 mg/dL (0-200); Estimated Glomerular Filt Rate 49; Glucose 94 mg/dL (65-110); HDL Direct 47 mg/dL; Potassium 4.1 mmol/L (3.4-5.0); Sodium 137 mmol/L (137-145); Triglycerides 258 mg/dL (<150)
[2023-03-29 11:23] LABS: LDL Cholesterol Direct 107 mg/dL
[2023-03-29 12:03] LABS: Vitamin D 25 Hydroxy 23.4 ng/mL
== END 2023-03-29 09:49 | disposition home or self-care (01) ==
LOC: ANHLAB 09:49
PROVIDERS: PCP Nurse Practitioner; Visit Provider Nurse Practitioner
DX: E55.9 Vitamin D deficiency, unspecified (principal); E78.5 Hyperlipidemia, unspecified; D64.9 Anemia, unspecified; R73.02 Impaired glucose tolerance (oral)
CPT/HCPCS: 36415; 80053; 80061; 82306; 83036; 85027; 85610

== ENCOUNTER 2023-06-01 08:10 | Outpatient (CLI) | payer OTHER, SELFPAY ==
--- NOTE | ~2023-06-01 | XR_ITS ---
EXAMINATION: XR ribs RT 2V DATE: 06/01/2023 08:38 INDICATION: Pleurodynia. Right-sided rib pain TECHNIQUE: 3 views of the right ribs were obtained. COMPARISON: Chest radiograph dated 08/27/2022 FINDINGS: No rib fractures identified. Small lung volumes. Calcified nodules in the right upper lobe consistent with old granulomatous disease. No other airspace opacities, pulmonary edema, pleural effusion or pn eumothorax in the right hemithorax or visualized portions of the left hemithorax. Heart size is lisa l. Multiple small round osteochondral bodies at the right glenohumeral joint both along the greater t uberosity and along the long head biceps tendon sheath. Interbody fusion devices and partially visual ized bilateral vertical anjel and pedicle screw fixation for combined lumbar anterior and posterior spi nal fusion at least at L3-L4. IMPRESSION: 1. Persistent small lung volumes. No rib fracture or acute cardiopulmonary disease. Reviewed, dictated and finalized at location B. CTOR OF MANAGED CARE IMPRESSION: 1. Persistent small lung volumes. No rib fracture or acute cardiopulmonary dise ase.
== END 2023-06-01 08:11 | disposition home or self-care (01) ==
PROVIDERS: PCP Nurse Practitioner; Visit Provider Nurse Practitioner
DX: R07.81 Pleurodynia (principal); R91.8 Other nonspecific abnormal finding of lung field
CPT/HCPCS: 71100

== ENCOUNTER 2023-06-27 09:07 | Outpatient (RCR) | payer OTHER, SELFPAY ==
[2023-03-29 11:05] LABS: INR 2.8; Prothrombin Time 32.2 Seconds (11.1-14.7)
[2023-05-02 09:54] LABS: INR 2.5
[2023-05-30 12:17] LABS: INR 2.1; Prothrombin Time 25.1 Seconds (11.1-14.7)
[2023-06-27 09:43] LABS: INR 1.4; Prothrombin Time 17.7 Seconds (11.1-14.7)
== END 2023-06-27 23:59 | disposition home or self-care (01) ==
LOC: ANHLAB 09:07
PROVIDERS: PCP Nurse Practitioner; Visit Provider Nurse Practitioner
DX: I48.91 Unspecified atrial fibrillation (principal)
CPT/HCPCS: 36415; 85610

== ENCOUNTER 2023-07-10 10:44 | Outpatient (RCR) | payer OTHER, SELFPAY ==
[2023-07-10 11:39] LABS: INR 2.4; Prothrombin Time 27.8 Seconds (11.1-14.7)
== END 2023-08-21 08:28 | disposition home or self-care (01) ==
LOC: ANHLAB 10:44
PROVIDERS: PCP Nurse Practitioner; Visit Provider Internal Medicine Cardiovascular Disease
DX: I48.91 Unspecified atrial fibrillation (principal)
CPT/HCPCS: 36415; 85610

== ENCOUNTER 2023-09-11 09:00 | Outpatient (CLI) | payer OTHER, SELFPAY ==
[2023-09-11 10:14] LABS: Alanine Aminotransferase 16 U/L (6-35); Alkaline Phosphatase 123 U/L (38-126); Anion Gap 6 mmol/L (4-12); Aspartate Amino Transferase 24 U/L (14-36); Bilirubin,Total 0.4 mg/dL (0.2-1.3); Blood Urea Nitrogen 23 mg/dL (7-17); Calcium 8.7 mg/dL (8.4-10.2); Carbon Dioxide 27 mmol/L (22-30); Chloride 107 mmol/L (98-107); Cholesterol 179 mg/dL (0-200); Estimated Glomerular Filt Rate > 60; Glucose 98 mg/dL (65-110); HDL Direct 43 mg/dL; Potassium 4.5 mmol/L (3.4-5.0); Sodium 140 mmol/L (137-145); Triglycerides 129 mg/dL (<150)
[2023-09-11 10:24] LABS: Vitamin D 25 Hydroxy 22.8 ng/mL
[2023-09-11 10:25] LABS: LDL Cholesterol Direct 110 mg/dL
== END 2023-09-11 09:01 | disposition home or self-care (01) ==
LOC: ANHLAB 09:01
PROVIDERS: PCP Nurse Practitioner; Visit Provider Nurse Practitioner
DX: E78.5 Hyperlipidemia, unspecified (principal); E55.9 Vitamin D deficiency, unspecified
CPT/HCPCS: 36415; 80053; 80061; 82306

== ENCOUNTER 2023-10-24 09:17 | Outpatient (RCR) | payer OTHER, SELFPAY ==
[2023-08-21 09:34] LABS: INR 4.4; Prothrombin Time 45.5 Seconds (11.1-14.7)
[2023-08-30 13:47] LABS: INR 1.9; Prothrombin Time 23.1 Seconds (11.1-14.7)
[2023-09-07 10:49] LABS: INR 2.2
[2023-10-09 15:32] LABS: INR 1.9
[2023-10-24 10:28] LABS: INR 2.3
== END 2023-11-19 23:59 | disposition home or self-care (01) ==
LOC: ANHLAB 09:17
PROVIDERS: PCP Nurse Practitioner; Visit Provider Internal Medicine Cardiovascular Disease
DX: I48.0 Paroxysmal atrial fibrillation (principal)
CPT/HCPCS: 36415; 85610

== ENCOUNTER 2023-11-30 13:58 | Outpatient (CLI) | payer OTHER, SELFPAY ==
--- NOTE | ~2023-11-30 | CT_ITS ---
EXAMINATION: CT lumbar spine wo con DATE: 11/30/2023 14:23 INDICATION: Spinal stenosis, lumbar region with neurogenic claudication. TECHNIQUE: Computed tomography (CT) of the lumbar spine was performed without intravenous contrast. A utomated exposure control and iterative reconstruction technique were employed. The dose-length produ ct was 1137.99 mGy-cm. COMPARISON: CT lumbar spine 07/24/2022 FINDINGS: There is a electrode in left S3 neural foramen. S1 is a transitional segment. There is 3 mm retrolisthesis of L1 on L2 and L2 on L3. There is mild chronic anterior wedging of T12 and L1 verteb ral bodies. There is mildly decreased disc height at T11-T12, T12-L1, L1-L2, and L2-L3. There are talib nges of anterior and posterior fusion procedures from L3 to S1 with interbody devices and pedicle scr ews. The following disc levels are specifically discussed: L1-L2: The disc is bulging. There is mild bilateral facet joint osteoarthritis. There is mild bilater al neural foraminal stenosis. There is mild central canal stenosis. L2-L3: The disc is bulging. There is mild right facet joint osteoarthritis. There is moderate bilater al neural foraminal stenosis. There is mild central canal stenosis with posterior decompression. L3-L4: There is mild right facet joint hypertrophy. There is no neural foraminal stenosis. There is n o central canal stenosis. L4-L5: There is mild right facet joint hypertrophy. There is mild right neural foraminal stenosis. Th ere is no central canal stenosis. L5-S1: There is mild bilateral facet joint hypertrophy. There is mild lateral neural foraminal stenos is. There is no central canal stenosis. IMPRESSION: 1. Worsened moderate lumbar spondylosis. 2. Anterior and posterior fusion procedures from L3 to S1. Reviewed, dictated and finalized at location A.
== END 2023-11-30 13:59 | disposition home or self-care (01) ==
LOC: ANHIMG 14:05
PROVIDERS: PCP Nurse Practitioner; Visit Provider Nurse Practitioner
DX: M48.062 Spinal stenosis, lumbar region with neurogenic claudication (principal); M47.816 Spondylosis without myelopathy or radiculopathy, lumbar region; Z98.1 Arthrodesis status
CPT/HCPCS: 72131

== ENCOUNTER 2024-02-15 11:25 | Outpatient (CLI) | payer OTHER, SELFPAY ==
--- NOTE | ~2024-02-15 | MM_ITS ---
EXAMINATION: MM screening [facility] BI w radha HISTORY: Screening mammogram TECHNIQUE: Craniocaudal and mediolateral oblique 3-D tomosynthesis images were obtained and synthetic 2-D images were generated. CAD analysis was submitted and interpreted. COMPARISON: 03/09/2022, 10/19/2020, 08/22/2019 BREAST PARENCHYMAL COMPOSITION:Not Dense. There are scattered areas of fibroglandular density. FINDINGS: No suspicious mass, calcification, or architectural distortion are identified in either josie ast to suggest malignancy. There has been no suspicious interval change. IMPRESSION: No mammographic evidence of malignancy. Recommend routine screening mammography in one year. BI-RADS Category 1: Negative Reviewed, dictated and finalized at location . 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
== END 2024-02-15 11:26 | disposition home or self-care (01) ==
PROVIDERS: PCP Internal Medicine; Visit Provider Nurse Practitioner
DX: Z12.31 Encounter for screening mammogram for malignant neoplasm of breast (principal)
CPT/HCPCS: 77063; 77067

== ENCOUNTER 2024-02-21 12:14 | Outpatient (RCR) | payer OTHER, SELFPAY ==
[2023-11-30 15:06] LABS: INR 2.2; Prothrombin Time 25.3 Seconds (11.1-14.7)
[2023-12-31 14:10] LABS: INR 1.1; Prothrombin Time 14.8 Seconds (11.1-14.7)
[2024-01-08 11:28] LABS: INR 3.2; Prothrombin Time 33.3 Seconds (11.1-14.7)
[2024-01-15 14:37] LABS: INR 2.6; Prothrombin Time 27.9 Seconds (11.1-14.7)
[2024-01-30 14:08] LABS: INR 2.7; Prothrombin Time 28.9 Seconds (11.1-14.7)
[2024-02-21 13:25] LABS: INR 1.8; Prothrombin Time 21.7 Seconds (11.1-14.7)
== END 2024-02-28 23:59 | disposition home or self-care (01) ==
LOC: ANHLAB 12:14
PROVIDERS: PCP Nurse Practitioner; Visit Provider Internal Medicine Cardiovascular Disease
DX: I48.0 Paroxysmal atrial fibrillation (principal)
CPT/HCPCS: 36415; 85610

== ENCOUNTER 2024-03-05 07:41 | Outpatient (CLI) | payer OTHER, SELFPAY ==
[2024-02-20 10:29] VITALS: BMI 37.9
--- NOTE | 2024-02-20 10:30 | PC.NURSE ---
Pre Radiology instructions Report to the outpatient [facility] on date __03/05/24___ at time ___8:00AM____ for procedure Time: __10:00AM__ YOU MAY BE MONITORED AT HOSPITAL FOR UP TO 4 HOURS AFTER YOUR PROCEDURE. A visitor will be allowed to accompany the patient into the hospital. You and your visitor will be asked to self-screen and do not enter if you have any COVID symptoms. A mask is OPTIONAL within the hospital. Patients are to have no food or drink 6 hours prior to procedure time Driving will be restricted after the procedure, you must have a person to drive you home. Labs will be drawn in preop area and once reviewed, you will be taken to radiology area for procedure. When the procedure is completed, you will be taken to outpatient where you will be monitored for several hours. You may have one visitor in this area. Other than holding anti-coagulants, patient may take other medication(s) as scheduled. Prior to your appointment date patients are instructed to hold anti-coagulants after discussing with ordering provider to stop. If unable to discontinue anti-coagulants please notify radiologist. ? No aspirin or warfarin (Coumadin) for 7 days prior to the procedure. ? No clopidogrel (Plavix), ticagrelor (Brilinta), prasugrel (Effient) or dabigatran (Pradaxa) for 5 days prior to the procedure. ? No rivaroxaban (Xarelto), apixaban (Eliquis), dipyridamole (Aggrenox or Persantine) or cilostazol (Pletal) for 2 days prior to the procedure. Medications to discontinue per physician: ___COUMADIN 7 DAYS PRE-OP Date to take last dose: ____02/26/24 Please leave all valuables, including medications, at home the day of procedure. The hospital will not accept responsibility for valuables. Wear comfortable, loose fitting clothing.? Follow any additional instructions given to you from ordering provider. Telephone instructions given to ____PATIENT and asked if any additional questions and then verbalized understanding. Patient advised to call scheduling provider office or registration scheduling [phone] if any additional questions.
[2024-03-05] VITALS (8 sets, daily range): BP systolic 103–118; BP diastolic 48–74; PULSE 57–64; RESP 14–18; TEMP 36.6; O2SAT 97–98; BMI 38.5
--- NOTE | ~2024-03-05 | XR_ITS ---
EXAMINATION: 1. CT lumbar spine w con 2. XR myelogram spine lumbosacral DATE: 03/05/2024 09:48 INDICATION: Spinal stenosis, lumbar region without neurogenic claudication. TECHNIQUE: The procedure including the risks, benefits, and alternatives was discussed with the patie nt. Risks discussed included spinal headache, bleeding, and infection. The patient understood the ris ks and agreed to proceed. A timeout was performed to verify the patient's name, date of , and procedure to be performed. The skin overlying the L3-L4 level was prepped and draped in usual steri le fashion. Subcutaneous 1% lidocaine was used for local anesthesia. A 22 gauge spinal needle was a dvanced under fluoroscopic guidance. 17 mL Omnipaque 180 was injected into the thecal space. The need le was removed and the entry site was cleaned and dressed. There were no immediate complications. Fl uoroscopy exposure time was 0.2 minutes. The total number of images was 7. Computed tomography (CT) o f the lumbar spine was performed without intravenous contrast. Automated exposure control and iterati ve reconstruction technique were employed. The dose-length product was 1133.99 mGy-cm. COMPARISON: lumbar spine CT 11/30/23 FINDINGS: LUMBAR MYELOGRAM: Real-time fluoroscopy demonstrates the needle at the L3-L4 level. There is indentat ion of the thecal sac at multiple levels but will be further described on the post myelogram CT. POST MYELOGRAM LUMBAR SPINE CT: There is 6 degrees levocurvature of lumbar spine. There is 3 mm retro listhesis of L1 on L2 and 4 mm anterolisthesis of L2 on L3. There are changes of anterior and posteri or fusion procedures from L3 to S1 with interbody devices and pedicle screws. There is mildly decreas ed disc height at L1-L2 and moderately decreased disc height at L2-L3. The conus medullaris is at L1. There is an electrode in the left S3 neural foramen. The following disc levels are specifically disc ussed: L1-L2: The disc is bulging. There is severe right and mild left facet joint osteoarthritis. There is mild bilateral neural foraminal stenosis. There is no central canal stenosis. L2-L3: The disc is bulging. There is severe bilateral facet joint osteoarthritis. There is severe rig ht and moderate left neural foraminal stenosis. There is mild central canal stenosis. L3-L4: There is no facet joint hypertrophy. There is no neural foraminal stenosis. There is no centra l canal stenosis. L4-L5: There is mild bilateral facet joint hypertrophy. There is mild bilateral neural foraminal sten osis. There is no central canal stenosis. L5-S1: There is mild bilateral facet joint hypertrophy. There is mild bilateral neural foraminal sten osis. There is no central canal stenosis. IMPRESSION: 1. Moderate lumbar spondylosis, stable from 11/30/2023. 2. Anterior and posterior fusion procedures from L3 to S1. Reviewed, dictated and finalized at location A. 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 Moderate lumbar spondylosis, stable from 11/30/2023. 2. Anterior and posterior fusion procedures from L3 to S1.
[2024-03-05 08:35] LABS: Mean Platelet Volume 9.3 fl (7.4-10.4); Platelet Count Result 295 k/mm3 (150-375)
[2024-03-05 09:15] LABS: Prothrombin Time 13.3 Seconds (11.1-14.7)
== END 2024-03-05 11:43 | disposition home or self-care (01) ==
PROVIDERS: Radiology Diagnostic Radiology; PCP Nurse Practitioner; Referring Provider Neurological Surgery; Visit Provider Radiology Diagnostic Radiology
DX: M47.816 Spondylosis without myelopathy or radiculopathy, lumbar region (principal); M48.061 Spinal stenosis, lumbar region without neurogenic claudication; M43.10 Spondylolisthesis, site unspecified; M43.26 Fusion of spine, lumbar region; Z79.01 Long term (current) use of anticoagulants
CPT/HCPCS: 36415; 62304; 72132; 85049; 85610

== ENCOUNTER 2024-04-13 01:10 | Emergency (ER) | payer OTHER, SELFPAY ==
[2024-04-13] VITALS (8 sets, daily range): BP systolic 114–162; BP diastolic 66–93; PULSE 90–105; RESP 16–20; TEMP 36.7–37.2; O2SAT 88–99
[2024-04-13 04:20] LABS: Add Urine Microscopic? YES; Appearance Urine Cloudy (Clear); Bacteria Urine 4+ /hpf; Bilirubin Urine Negative (Negative); Blood Urine 1+ (Negative); Color Urine Yellow (Yellow); Glucose Urine UA Negative (Negative); Ketones Urine Trace mg/dL (Negative); Leukocyte Esterase Ur 2+ LEU/UL (Negative); Nitrate Urine Positive (Negative); Non Pathogenic Casts 0-2; Protein Urine 1+ mg/dL (Negative); Specific Grav Ur 1.016 (1.001-1.035); Squamous Epithelial Cell Urine None Seen /hpf (Few); WBC Urine >100 /hpf (0-3)
[2024-04-13 11:29] LABS: Basophils Percent Auto 0.4 % (0.2-1.2); Eosinophils Absolute Auto 0.1 K/mm3 (0-0.3); Eosinophils Percent Auto 0.7 % (0-4.4); Hemoglobin 13.4 g/dL (12.0-15.0); Immature Granulocyte Absolute 0.03 K/mm3 (0.00-0.031); Immature Granulocyte Percent A 0.4 % (0-0.5); Lymphocytes Absolute Auto 1.39 K/mm3 (0.9-3.2); Mean Corpuscular HGB Conc 33.5 g/dl (32-36); Mean Corpuscular Hemoglobin 30.1 pg (26-34); Mean Corpuscular Volume 89.9 fl (80-100); Mean Platelet Volume 8.9 fl (7.4-10.4); Monocytes Absolute Auto 0.7 K/mm3 (0.1-0.6); Monocytes Percent Auto 9.3 % (2.6-8.5); Neutrophils Absolute Auto 5.1 K/mm3 (1.3-6.7); Neutrophils Percent Auto 70.2 % (45.5-73.1); Platelet Count Result 250 k/mm3 (150-375); Red Blood Count 4.45 M/mm3 (4.2-5.4); Red Cell Distribution Width 13.3 % (11.5-14.5); White Blood Count 7.3 K/mm3 (4.5-10.0)
[2024-04-13 11:39] LABS: INR 2.1; Prothrombin Time 24.1 Seconds (11.1-14.7)
[2024-04-13] MEDS: SODIUM CHLORIDE 0.9% IV 500 ML 999 ML IV CONT (11:42)
[2024-04-13] MEDS: ONDANSETRON INJ 4 MG/2 ML VIAL IV PUSH (11:43)
[2024-04-13] MEDS: MORPHINE SULFATE (*CRX) 4 MG/ML INJ 2 MG IV PUSH (11:44)
[2024-04-13 11:47] LABS: Alanine Aminotransferase 13 U/L (6-35); Albumin Level 3.7 g/dL (3.5-5.1); Alkaline Phosphatase 96 U/L (38-126); Anion Gap 7 mmol/L (4-12); Aspartate Amino Transferase 19 U/L (14-36); Bilirubin,Total 0.7 mg/dL (0.2-1.3); Blood Urea Nitrogen 15 mg/dL (7-17); Calcium 8.5 mg/dL (8.4-10.2); Carbon Dioxide 25 mmol/L (22-30); Chloride 106 mmol/L (98-107); Estimated CRCL calculation 50 ml/min; Estimated Glomerular Filt Rate 59; Glucose 102 mg/dL (65-110); Potassium 4.2 mmol/L (3.4-5.0); Sodium 138 mmol/L (137-145)
--- NOTE | 2024-04-13 12:46 | ED_ITS ---
HPI - Abdominal Pain General Chief Complaint: Urogenital-Female Stated Complaint: L abd pain, n/v, fever Time Seen by Provider: 04/13/24 10:43 History of Present Illness HPI narrative: Patient is a 73-year-old female who presents ER with concerns for UTI. She has been having burning urination and urinary frequency for 2 weeks. No fevers or chills or sweats. She is starting to have some mild discomfort in left lower quadrant of her abdomen. No back pain. She tried treating herself by increasing her fluid intake. She reports no fevers. Related Data Home Medications ?Medication ?Instructions ?Recorded ?Confirmed ?Last Taken ?Type cholecalciferol (vitamin D3) 125 125 mcg PO DAILY 10/06/20 02/20/24 07/24/22 History mcg (5,000 unit) capsule fexofenadine 60 mg tablet (Scarlett 60 mg PO Q12H PRN Allergy Symptoms 10/13/20 02/20/24 01/17/21 History Allergy) Allergies Allergy/AdvReac Type Severity Reaction Status Date / Time No Known Allergies Allergy Verified 04/13/24 01:18 Review of Systems 2 Review of Systems: All systems reviewed & are unremarkable except as noted in HPI and below Constitutional: Constitutional: Reports no additional constitutional complaints Cardiovascular: Cardiovascular: Reports no additional cardiovascular complaints Respiratory: Respiratory: Reports no additional respiratory complaints Gastrointestinal: Gastrointestinal: Reports no additional gastrointestinal complaints Genitourinary: Genitourinary: Reports no additional female genitourinary complaints PMFSH Past Medical History Medical History Depression Diverticulitis Stress incontinence Chronic anticoagulation Paroxysmal atrial fibrillation Gastroesophageal reflux disease Adenomatous colon polyp RAZA (obstructive sleep apnea) Postmenopausal Essential (primary) hypertension Pure hypercholesterolemia Surgical History Surgical History History of benign breast biopsy Sacral nerve stimulator present History of hysterectomy (1994) History of back surgery Family History Family History Father Family history of throat cancer Patient's father is Sibling Patient's brother is Acute myocardial infarction Diabetes mellitus Other Family history of cardiovascular disease Family history of malignant neoplasm Hypertension Social History Social History Smoking packs per day: 1 Smoking cigarettes per day: 20.0 Years smoked: 10 Smoking pack-years: 10.00 Smoking status: Former smoker Tobacco type: cigarettes Second hand tobacco smoke exposure: Yes Smoking end date: 07/31/92 Alcohol intake: former Alcohol use details: Social alcohol use. Substance use: never Substance use type: does not use Do You Feel Safe in your Home?: Yes Lack of Transportation: No Lack of Food: Never True Current Housing: I Have Housing Concerned About Future Housing: No Difficulty Paying Gas/Electric Bills: No Difficulty Paying for Meds: No Currently Unemployed: No Education: High School Diploma/GED Difficulty w/ Childcare or Family Care: No Living arrangements: with family Additional living arrangements comments: Lives in [place], grandson lives with her. Spiritual care concerns: No Exam 2 Narrative: GENERAL: Well-appearing, morbidly obese, and in no acute distress. HEAD: Normocephalic, atraumatic. ENT: Mucous membranes moist. CHEST: Clear to auscultation. No respiratory distress. HEART: Regular rate and rhythm. Normal peripheral pulses. ABDOMEN: Soft, nontender, nondistended. EXTREMITIES: Normal range of motion. No edema. SKIN: Warm, dry, no rash. NEURO: Alert and oriented x3. PSYCH: Normal mood and affect. Course Course Emergency Course: Patient resting comfortably. Informed of results. Discharge home Vital Signs Vital signs: Vital Signs Temperature 98.0 F 04/13/24 01:13 Pulse Rate 105 H 04/13/24 01:13 Respiratory Rate 20 04/13/24 01:13 Blood Pressure 162/82 H 04/13/24 01:13 Pulse Oximetry 96 04/13/24 01:13 Temperature 98.4 F 04/13/24 08:08 Pulse Rate 92 04/13/24 11:30 Respiratory Rate 16 04/13/24 11:30 Blood Pressure 142/73 H 04/13/24 11:30 Pulse Oximetry 94 04/13/24 12:30 Oxygen Delivery Nasal Cannula 04/13/24 12:30 Oxygen Flow Rate 2 04/13/24 12:30 MDM - Abdominal Pain Lab Data 04/13/24 11:25 04/13/24 11:25 Labs: Lab Results 04/13/24 04/13/24 Range/Units 03:43 11:25 WBC 7.3 (4.5-10.0) K/mm3 RBC 4.45 (4.2-5.4) M/mm3 Hgb 13.4 (12.0-15.0) g/dL Hct 40.0 (37.0-47.0) % MCV 89.9 (80-100) fl MCH 30.1 (26-34) pg MCHC 33.5 (32-36) g/dl RDW 13.3 (11.5-14.5) % Plt Count 250 (150-375) k/mm3 MPV 8.9 (7.4-10.4) fl Immature Gran % (Auto) 0.4 (0-0.5) % Neut % (Auto) 70.2 (45.5-73.1) % Lymph % (Auto) 19.0 (18.3-44.2) % [place] % (Auto) 9.3 H (2.6-8.5) % Eos % (Auto) 0.7 (0-4.4) % Baso % (Auto) 0.4 (0.2-1.2) % Lymph # (Auto) 1.39 (0.9-3.2) K/mm3 [place] # (Auto) 0.7 H (0.1-0.6) K/mm3 Eos # (Auto) 0.1 (0-0.3) K/mm3 Baso # (Auto) 0.0 (0.0-0.1) K/mm3 Abs Immat Gran (auto) 0.03 (0.00-0.031) K/mm3 Absolute Neuts (auto) 5.1 (1.3-6.7) K/mm3 Absolute Nucleated RBC 0.000 (0.0-0.012) K/mm3 Nucleated RBC % 0.0 (0.0-0.2) % PT 24.1 H D (11.1-14.7) Seconds INR 2.1 APTT 39.0 H (22.3-36.8) Seconds Sodium 138 (137-145) mmol/L Potassium 4.2 (3.4-5.0) mmol/L Chloride 106 (98-107) mmol/L Carbon Dioxide 25 (22-30) mmol/L Anion Gap 7 (4-12) mmol/L BUN 15 D (7-17) mg/dL Creatinine 0.94 (0.7-1.0) mg/dL Estim Creat Clear Calc 50 ml/min Estimated GFR 59 (59 - ) Glucose 102 (65-110) mg/dL Calcium 8.5 (8.4-10.2) mg/dL Total Bilirubin 0.7 (0.2-1.3) mg/dL AST 19 (14-36) U/L ALT 13 (6-35) U/L Alkaline Phosphatase 96 (38-126) U/L Total Protein 7.0 (6.3-8.2) g/dL Albumin 3.7 (3.5-5.1) g/dL Urine Color Yellow (Yellow) Urine Appearance Cloudy H (Clear) Urine pH 7.0 (5.0-9.0) Ur Specific [place] 1.016 (1.001-1.035) Urine Protein 1+ H (Negative) mg/dL Urine Glucose (UA) Negative (Negative) mg/dL Urine Ketones Trace H (Negative) mg/dL Ur Blood (Man) 1+ H (Negative) Urine Nitrate Positive H (Negative) Urine Bilirubin Negative (Negative) Urine Urobilinogen 1.0 (<2.0) mg/dL Leukocyte Esterase Rfl 2+ H (Negative) BELL/UL Urine RBC 6-10 H (0-2) /hpf Urine WBC >100 H (0-3) /hpf Ur Squamous Epith Cells None seen (Few) /hpf Urine Bacteria 4+ H /hpf Urine Casts 0-2 Discharge Plan Discharge Clinical Impression: Acute UTI Patient Disposition: Home, Self-Care Condition: Stable Instructions: Urinary Tract Infection in Women (ED) Additional Instructions: You should return to the emergency department if you develop severe nausea and vomiting and are unable to keep liquids down, if you develop severe back/flank or stomach pain, or if your symptoms are not clearly improving at home. Do not take your omeprazole while taking your antibiotic. Patient Language: Cambodian Prescriptions: New cefuroxime axetil 500 mg tablet 500 mg PO BID Qty: 14 0RF No Action lisinopril 40 mg tablet 40 mg PO QAM Qty: 90 1RF cholecalciferol (vitamin D3) 125 mcg (5,000 unit) capsule 125 mcg PO DAILY fexofenadine [Scarlett Allergy] 60 mg tablet 60 mg PO Q12H PRN (Reason: Allergy Symptoms) calcium carbonate 500 mg calcium (1,250 mg) tablet 500 mg PO DAILY Qty: 90 1RF flecainide 50 mg tablet See Rx Instructions .ROUTE .COMPLEX Qty: 180 2RF Dose Instruction: TAKE 1 TABLET BY MOUTH EVERY 12 HOURS Rx Instructions: TAKE 1 TABLET BY MOUTH EVERY 12 HOURS rosuvastatin 40 mg tablet 40 mg PO DAILY Qty: 90 1RF aripiprazole 5 mg tablet 5 mg PO QAM Qty: 90 0RF escitalopram oxalate 20 mg tablet 20 mg PO QAM Qty: 90 1RF Rx Instructions: TAKE 1 TABLET BY MOUTH EVERY DAY bupropion HCl 300 mg tablet extended release 24 hr See Rx Instructions .ROUTE .COMPLEX Qty: 90 1RF Dose Instruction: TAKE 1 TABLET BY MOUTH EVERY MORNING Rx Instructions: TAKE 1 TABLET BY MOUTH EVERY MORNING furosemide 40 mg tablet 40 mg PO QAM Qty: 90 1RF acetaminophen 500 mg capsule 1,000 mg PO Q6H PRN (Reason: Pain) Qty: 60 5RF omeprazole 20 mg capsule,delayed release(DR/EC) 20 mg PO QAM Qty: 30 5RF Rx Instructions: TAKE 1 CAPSULE BY MOUTH EVERY DAY metoprolol succinate 25 mg tablet extended release 24 hr See Rx Instructions .ROUTE .COMPLEX Qty: 90 2RF Dose Instruction: TAKE 1 TABLET BY MOUTH EVERY DAY Patient Comments: QAM Rx Instructions: TAKE 1 TABLET BY MOUTH EVERY DAY warfarin 2.5 mg tablet 2.5 mg .ROUTE .COMPLEX Qty: 30 5RF Rx Instructions: Take 1 tablet daily Follow-up/Referrals: David Mcnamara APRN [Primary Care Provider] - 1 Week
== END 2024-04-13 13:15 | disposition home or self-care (01) ==
PROVIDERS: Emergency Medicine; Emergency Provider Emergency Medicine; PCP Nurse Practitioner
DX: N39.0 Urinary tract infection, site not specified (principal); I48.0 Paroxysmal atrial fibrillation; I10 Essential (primary) hypertension; E78.00 Pure hypercholesterolemia, unspecified; K21.9 Gastro-esophageal reflux disease without esophagitis; G47.33 Obstructive sleep apnea (adult) (pediatric); F32.A Depression, unspecified; Z86.0101 Personal history of adenomatous and serrated colon polyps; Z87.891 Personal history of nicotine dependence; Z90.710 Acquired absence of both cervix and uterus; Z79.899 Other long term (current) drug therapy
CPT/HCPCS: 36415; 80053; 81001; 85025; 85610; 85730; 87077; 87086; 87186; 96374; 96375; 99284; J2270; J2405; J7040

== ENCOUNTER 2024-04-22 13:02 | Outpatient (RCR) | payer OTHER, SELFPAY ==
[2024-03-31 15:09] LABS: INR 1.3; Prothrombin Time 17.1 Seconds (11.1-14.7)
[2024-04-09 13:24] LABS: INR 1.7; Prothrombin Time 19.8 Seconds (11.1-14.7)
[2024-04-22 14:03] LABS: INR 2.5; Prothrombin Time 26.9 Seconds (11.1-14.7)
== END 2024-06-29 23:59 | disposition home or self-care (01) ==
LOC: ANHLAB 13:02
PROVIDERS: PCP Nurse Practitioner; Visit Provider Internal Medicine Cardiovascular Disease
DX: I48.0 Paroxysmal atrial fibrillation (principal)
CPT/HCPCS: 36415; 85610

== ENCOUNTER 2024-07-18 11:43 | Outpatient (CLI) | payer OTHER, SELFPAY ==
--- OUTSIDE RECORDS SUMMARY | 2024-07-18 11:49 | XMS_ITS | Clinical Summary ---
Author Organization [facility] Address [address] [place] [phone] Care Team Providers Care Repairer Maintenance Building Name Role Phone Tra Sanchez DO Primary Care Provider [phone] Allergies No known active allergies Medications raNITIdine (ZANTAC) 300 mg tablet TAKE 1 TABLET BY MOUTH EVERY DAY 0 06/04/2018 Active lovastatin (MEVACOR) 40 mg tablet TAKE 1 TABLET BY MOUTH EVERY DAY IN THE EVENING 0 06/11/2018 Active lisinopril-hydr oCHLOROthiazide (ZESTORETIC) 20-25 mg tablet TAKE 1 TABLET BY MOUTH TWICE A DAY 0 06/03/2018 Active sertraline (ZOLOFT) 100 mg tablet TAKE 1&1/2 TABLET BY MOUTH EVERY DAY 1 07/12/2018 Active oxybutynin chloride (DITROPAN XL) 10 mg Extended Release 24 hour tablet 08/13/2018 Active cholecalciferol , vitamin D3, 5,000 unit Take 400 Units by mouth daily. Active MULTIVITAMIN ORAL Take 1 Tablet by mouth daily. Active carisoprodol (SOMA) 350 mg tabletIndicatio ns:Spondylolist hesis at L5-S1 level Take 1 Tablet (350 mg) by mouth every 6 hours as needed for Spasm. 30 Tablet 09/07/2018 1:02 PM CDT 09/07/2018 Active gabapentin (NEURONTIN) 300 mg capsule Take 1 Capsule (300 mg) by mouth 3 times daily. 60 Capsule 09/07/2018 1:02 PM CDT 09/07/2018 Active HYDROcodone-gigi taminophen (NORCO) 7.5-325 mg TabletIndicatio ns:Spondylolist hesis at L5-S1 level Take 1 Tablet by mouth every 6 hours as needed for moderate pain. 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 No 09/04/2018 Within the last year, have y ou been humiliated or emotionally abused in other ways by your partner or ex-partner? No Within the last year, have y ou been kicked, hit, slapped, or otherwise physically hurt by your partner or ex-partner? No 09/04/2018 Within the last year, have y ou been raped or forced to have any kind of sexual activity by your partner or ex-partner? No 09/04/2018 Social Connections Answer Date Recorded In a typical week, how many times do you talk on the phone with family, friends, or neighbors? Three times a week 09/04/2018 How often do you get togethe r with friends or relatives? Twice a week 09/04/2018 How often do you attend chur ch or tenriism services? Never 09/04/2018 Do you belong to any clubs o r organizations such as shinto groups, unions, fraternal or athletic groups, or school groups? No 09/04/2018 How often do you attend meet ings of the clubs or organizations you belong to? Never 09/04/2018 Are you , , di vorced, , never , or living with a partner? 09/04/2018 Financial Resource Strain Answer Date R ecorded How hard is it for you to pa y for the very basics like food, housing, medical care, and heating? Not very hard 09/04/2018 Food Insecurity Answer Date Recorded Within the past 12 months, y ou worried that your food would run out before you got the money to buy more. Never true 09/05/19 19 Within the past 12 months, t he food you bought just didn't last and you didn't have money to get more. Never true 09/04/2018 Transportation Needs Answer Date Record ed In the past 12 months, has l ack of transportation kept you from medical appointments or from getting medications? No 07/2018 In the past 12 months, has l ack of transportation kept you from meetings, work, or from getting things needed for daily living? No 09/04/2018 Comments No Sex and Gender Information Value Date Recorded Sex Assigned at Not on file Legal Sex Female 4:07 PM CDT Gender Identity Not on file Sexual Orientation Not on file Occupation Industry Job Start Date Job End Date retired Not on file Not on file Not on file Last Filed Vital Signs Vital Sign Reading Time Taken Comments Blood Pressure 107/60 09/07/2018 11:56 AM CDT Pulse 80 09/07/2018 11:56 AM CDT Temperature 36.3 C (97.4 F) 09/07/2018 11:56 AM CDT Respiratory Rate 18 09/07/2018 11:5 6 AM CDT Oxygen Saturation 97% 09/07/2018 11: 56 AM CDT Inhaled Oxygen Concentration - - Weight 97.5 kg (214 lb 15.2 oz) 09/07/2018 4:18 AM CDT Height 157.5 cm (5' 2 ) 09/04/2018 6:39 AM CDT Body Mass Index 39.31 09/04/2018 6:39 AM CDT Plan of Treatment Health Maintenance Due Date Last Done Comments DTAP/TDAP/TD VACCINES (1 - Tdap) 08/28/1970 BREAST CANCER SCREENING 1991 COLORECTAL SCREENING 08/28/1996 Colorectal Cancer Screening 08/28/1996 FIT-DNA Q 3 years 08/28/1996 FIT/FOBT Q 1 year 08/28/1996 Flex Sig/CT Colonography Q 5 years 08/28/1996 PNEUMOCOCCAL VACCINE 50+ YEARS (1 of 1 - PCV) 08/29/19 02 ZOSTER VACCINE (1 of 2) 08/28/2001 OSTEOPOROSIS SCREENING 08/28/2016 INFLUENZA VACCINE (#1) 2023 RSV VACCINE (60+ or ) (1 - 1-dose 75+ series) 08/28/2026 Medical Devices Implanted Type Area Software Systems Analyst Device Identifier Shelf Expiration Date Model / Serial / Lot Cage 7-13, 10x22 Implanted:Qty: 1 on 09/04/2018 by Jaime Vee MD at [facility] N/A: Spine Lumbar [employer] 193.101 / / Description:ENTERED BY RN [id number] Cage 7-13, 8x22 Implanted:Qty: 1 on 09/04/2018 by Jaime Vee MD at [facility] N/A: Spine Lumbar [employer] 193.001 / / Description:ENTERED BY RN [id number] Hemostatic Surgifoam 1gm 1977 Sn/A Implanted:Qty: 1 on 09/04/2018 by Jaime Vee MD at [facility] Hemostatic N/A: Spine Lumbar J[employer]J- [employer] 06/17/20201977 / N/A / [id number] Description:REQ#[id number] REQ#[id number] Francisco Cdh Spn Ccm Cap 4.00m11hb [id number] - Ssterilized On 08/22/2018 Implanted:Qty: 2 on 09/04/2018 by Jaime Vee MD at [facility] [place] N/A: Spine Lumbar [employer]- SOFAMOR DANEK [id number] / STERILIZED ON 08/22/2018 / LOAD #[id number] Screw Solera Karen Ma [id number] - Ssterilized On 08/22/2018 Implanted:Qty: 1 on 09/04/2018 by Jaime Vee MD at [facility] Screw N/A: Spine Lumbar [employer]- SOFAMOR DANEK [id number] / STERILIZED ON 08/22/2018 / LOAD #[id number] Screw Solera Karen Ma [id number] - Ssterilized On 08/22/2018 Implanted:Qty: 1 on 09/04/2018 by Jaime Vee MD at [facility] N/A: Spine Lumbar [employer]- SOFAMOR DANEK [id number] / STERILIZED ON 08/22/2018 / LOAD #[id number] Screw Solera Karen Ma [id number] - Ssterilized On 08/22/2018 Implanted:Qty: 2 on 09/04/2018 by Jaime Vee MD at [facility] N/A: Spine Lumbar [employer]- SOFAMOR DANEK [id number] / STERILIZED ON 08/22/2018 / LOAD #[id number] Set Screw Solera Perc 4.75mm [id number] - Ssterilized On 08/22/2018 Implanted:Qty: 5 on 09/04/2018 by Jaime Vee MD at [facility] N/A: Spine Lumbar [employer]- SOFAMOR DANEK [id number] / STERILIZED ON 08/22/2018 / LOAD #[id number] Screw Solera Karen Ma 7.5x30mm Implanted:Qty: 1 on 09/04/2018 by Jaime Vee MD at [facility] N/A: Spine Lumbar [employer] [id number] / STERILIZED ON 08/22/2018 / LOAD #[id number] Description:ENTERED BY KELSY [id number] Infuse Protein Kit [id number] - Sn/A Implanted:Qty: 1 on 09/04/2018 by Jaime Vee MD at [facility] Tissue N/A: Spine Lumbar [employer]- SOFAMOR DANEK 11/30/2020 [id number] / N/A / [id number] [place] [address] [address] RX MEDIMPACT Member Subscriber Plan / Payer (Ef fective 2016-Present) Name:Sarika Arora Relation to Subscriber:Self Name:Sarika Arora Payer ID:Not on file Group ID:[id number] Type:RX Medicare Part D Address: [address] RX LIRA PLANS (INTERNAL) [facility] Plans Advance Directives For more information, please contact: [phone] * Full Code (Latest Code Status on File) Date Activated Date Inactivated Comments 09/04/2018 3:26 PM 09/07/2018 4:57 PM Care Teams Repairer Maintenance Building Relationship Specialty Start Date End Date Tra Sanchez DO PCP - General Internal Medicine 07/25/18
--- OUTSIDE RECORDS SUMMARY | 2024-07-18 11:49 | XMS_ITS | Clinical Summary ---
Author Organization [facility] Address [address] [place] [id number] Phone Care Team Providers Care Rehabilitation Liaison Name Role Phone Tra Sanchez DO Primary Care Provider [phone] Allergies No known active allergies Medications cholecalciferol , vitamin D3, (D-5000) 5,000 Units tablet tablet Take 400 Units by mouth daily Active cyclobenzaprine (FLEXERIL) 10 MG tablet TAKE 1 TABLET BY MOUTH DAILY NEEDED FOR MUSCLE SPASM 11/19/2019 Active famotidine (PEPCID) 40 MG tablet Take 40 mg by mouth 1 (one) time each day 11/18/2019 Active lisinopril-hydr oCHLOROthiazide (PRINZIDE,ZESTO RETIC) 20-25 MG per tablet Take 1 tablet by mouth 2 (two) times a day 11/02/2019 Active lovastatin (MEVACOR) 40 MG tablet TAKE 1 TABLET BY MOUTH EVERY DAY IN THE EVENING 06/11/2018 Active sertraline (ZOLOFT) 100 MG tablet Take 200 mg by mouth 1 (one) time each day 11/22/2019 Active Active Problems Problem Noted Date Diagnosed Date Nonspecific abnormal results of function study o f kidney 01/05/2020 Benign essential hypertension 09/05/2018 Neurogenic claudication 08/13/2018 Immunizations Immunization Administration Dates Next Due Fluzone High-Dose 01/29/2020 Influenza TIV (IM) 01/05/2020(Deferred: Patient Refused) Pneumococcal Conjugate 13-Valent 01/29/2020 Family History Medical History Relation Comments Kidney disease Neg Hx Social History Tobacco Use Types Packs/Day Years Used Date Smoking Tobacco: Former Smokeless Tobacco: Never Alcohol Use Standard Drinks/Week Comments Yes 0 (1 standard drink = 0.6 oz pur e alcohol) rare Comments Unknown Sex and Gender Information Value Date Recorded Sex Assigned at Not on file Legal Sex Female 8:44 AM MDT Gender Identity Not on file Sexual Orientation Not on file Last Filed Vital Signs Vital Sign Reading Time Taken Comments Blood Pressure 118/70 04/07/2020 9:20 AM PROGRAM HOST Pulse 60 04/07/2020 9:20 AM PROGRAM HOST Temperature 34.8 C (94.7 F) 04/07/2020 9:20 AM PROGRAM HOST Respiratory Rate - - Oxygen Saturation - - Inhaled Oxygen Concentration - - Weight 89.4 kg (197 lb) 04/07/2020 9:20 AM PROGRAM HOST Height 154.9 cm (5' 1 ) 04/07/2020 9:20 AM PROGRAM HOST Body Mass Index 37.22 04/07/2020 9:20 AM PROGRAM HOST Plan of Treatment Health Maintenance Due Date Last Done Comments Pneumococcal PPSV23/PCV13 65 + Years / Low and Medium Risk (2 of 3 - PPSV23) 01/28/2021 01/29/2020 Influenza Vaccine (Season Ended) 2024 Insurance [employer] HMO Care Teams Rehabilitation Liaison Relationship Specialty Start Date End Date Tra Sanchez DO [address] [place] [address] PCP - General Internal Medicine 11/20/19
--- NOTE | 2024-07-18 12:38 | ECG_ITS ---
Test Date: 2024-07-18 13:04:19 Measurements Intervals [place] Rate: 71 P: -46 PA: 303 QRS: 2 QRSD: 82 T: 43 QT: 391 QTc: 425 Interpretive Statements SINUS RHYTHM LOW QRS VOLTAGE IN PRECORDIAL LEADS POOR R WAVE PROGRESSION BASELINE ARTIFACT- I, II, III, AVR, AVL, AVF, V1-V6 BORDERLINE ECG No previous ECG available for comparison Electronically Signed On 07-18-2024 13:30:51 CDT by Maxim Bryant D.O.
[2024-07-18 13:19] LABS: Hematocrit 43.5 % (37.0-47.0); Hemoglobin 13.7 g/dL (12.0-15.0); Mean Corpuscular HGB Conc 31.5 g/dl (32-36); Mean Corpuscular Hemoglobin 28.7 pg (26-34); Mean Corpuscular Volume 91.2 fl (80-100); Mean Platelet Volume 9.3 fl (7.4-10.4); Platelet Count Result 278 k/mm3 (150-375); Red Blood Count 4.77 M/mm3 (4.2-5.4); Red Cell Distribution Width 13.9 % (11.5-14.5)
[2024-07-18 13:22] LABS: Add Urine Microscopic? NO; Appearance Urine Clear (Clear); Bilirubin Urine Negative (Negative); Blood Urine Negative (Negative); Color Urine Yellow (Yellow); Glucose Urine UA Negative (Negative); Ketones Urine Trace mg/dL (Negative); Leukocyte Esterase Ur Negative LEU/UL (Negative); Nitrate Urine Negative (Negative); Protein Urine Negative (Negative); Specific Grav Ur 1.027 (1.001-1.035); pH Urine 5.5 (5.0-9.0)
[2024-07-18 13:28] LABS: Anion Gap 8 mmol/L (4-12); Blood Urea Nitrogen 18 mg/dL (7-17); Calcium 8.9 mg/dL (8.4-10.2); Carbon Dioxide 25 mmol/L (22-30); Chloride 106 mmol/L (98-107); Estimated Glomerular Filt Rate 58; Glucose 102 mg/dL (65-110); Potassium 4.5 mmol/L (3.4-5.0); Sodium 139 mmol/L (137-145)
[2024-07-18 13:32] LABS: INR 1.1; Prothrombin Time 14.6 Seconds (11.1-14.7)
[2024-07-18 13:37] LABS: Partial Thromboplastin Time 25.8 Seconds (22.3-36.8)
== END 2024-07-18 11:44 | disposition home or self-care (01) ==
LOC: ANHSURGERY 11:47
PROVIDERS: PCP Internal Medicine; Visit Provider Neurological Surgery
DX: R94.31 Abnormal electrocardiogram [ECG] [EKG] (principal); M43.10 Spondylolisthesis, site unspecified; I48.91 Unspecified atrial fibrillation
CPT/HCPCS: 36415; 80048; 81003; 85027; 85610; 85730; 86850; 86900; 86901; 93005

== ENCOUNTER 2024-07-29 11:37 | Inpatient (IN) | payer OTHER, SELFPAY ==
[2024-07-18 12:07] VITALS: BMI 37.3
--- NOTE | 2024-07-18 12:07 | PC.NURSE ---
Report to the Outpatient Waiting Room, entrance under the green pavilion located off [facility], at time _6 AM on date __07/29/24 . Planned Procedure Time: ___7:30 AM .? Time changes happen often and if your time is changed the preop area will call you the afternoon before. - You and your visitor will be asked to self-screen and do not enter if you have any COVID symptoms. Please call surgeon if you need to reschedule. - A mask is optional within the hospital at this time. Patients may have clear liquids (water, carbonated beverages, clear teas, apple juice) until 3 hours prior to surgery ( 4:30 AM) with a maximum of 20 ounces. - No food from midnight until time of surgery and no smoking, or chewing tobacco (or any form of nicotine). No chewing gum, candy or mints. Take only the following medications with a SIP of water on the morning of surgery: _ARIPIPRAZOLE,BUPROPION,ESCITALOPRAM,FLECAINIDE,METOPROLOL DO NOT STOP ANY OF YOUR OTHER PRESCRIPTION MEDICATIONS PRIOR TO SURGERY EXCEPT THE FOLLOWING Hold all vitamins and supplements for 3 days per anesthesiologist.LAST DOSE 07/25/24 Medications to discontinue per physician ___PT STATES HOLD ELIQUIS 7 DAYS PRE OP PER DR DURON Date to take last dose 07/21/24 Please no make-up, nail icelandic, hairspray, perfume, deodorant, or body powder the day of surgery.? No jewelry (including any body piercings) or valuables the day of surgery, leave them at home.? Please take a shower or bath the night before, or the morning of, surgery with an antibacterial soap.? Wear comfortable, loose fitting clothing.? Children are encouraged to wear pajamas. - Jewelry must be removed prior to entering the operating room.? Rings and piercings that are not removed may be cut off. - The hospital will not accept responsibility for valuables.? - Please leave all valuables, including medications, at home the day of surgery. If you are going home after surgery, a licensed operator and truck driver must drive you home.? - NO public transportation without another adult if you receive anesthesia. - We recommend that an adult stay with you for 24 hours following discharge. - We also recommend that you do not drive, make important decision, drink alcoholic beverages, or take any drugs that were not prescribed by your health care provider for at least 24 hours after your discharge time. For Pediatric surgeries, we recommend two adults accompany the child home. Follow any additional instructions given to you from your surgeon. VERBAL AND WRITTEN instructions given to ___PATIENT and asked if any additional questions and then verbalized understanding. Patient advised to call surgeon office or pre surgery nurse liaison [phone] if any additional questions.
[2024-07-18 12:39] VITALS: BP 131/73; PULSE 70; RESP 18; TEMP 36.6; O2SAT 97
[2024-07-29] VITALS (12 sets, daily range): BP systolic 110–158; BP diastolic 43–78; PULSE 63–78; RESP 11–18; TEMP 35.9–37.1; O2SAT 94–100
--- NOTE | ~2024-07-29 | XR_ITS ---
EXAMINATION: XR fluoroscopy no charge DATE: 07/29/2024 10:24 INDICATION: Anterior lumbar fusion TECHNIQUE: 2 fluoroscopic images of the lumbar spine were obtained during procedure performed by Dr. Najera. Radiologist was not present for the imaging or procedure. The amount of fluoroscopy time us ed during this procedure was 0.1 minutes. Total DAP was 0.44 Gycm^2. COMPARISON: CT dated 03/05/2024 FINDINGS: Initial image redemonstrates the prior line instrumented L3-S1 anterior and posterior spinal fusion w ith interbody bone graft cages at each level and bilateral vertical anjel and pedicle screw fixation. T issue retractors and lap sponge project over a lucent surgical defect posterior to the lumbar spine. There been prior L4 and L5 laminectomies. Subsequent image demonstrates an additional L3 and possibly also L2 laminectomies and extension of the spinal fusion with additional additional interbody fusion device at L2-L3 and the parapharyngeal pedicle screws at L2. Portions of the prior vertical rods and removed. IMPRESSION: 1. Fluoroscopy utilized during extension to L2 of a combined instrumented L3-S1 anterior and posterio r spinal fusion. See procedure note for further detail. Reviewed, dictated and finalized at location B. IMPRESSION: 1. Fluoroscopy utilized during extension to L2 of a combined instrumented L3-S1 anterior and posterior spinal fusion. See procedure note for further detail.
--- OUTSIDE RECORDS SUMMARY | 2024-07-29 00:35 | XMS_ITS | Clinical Summary ---
Author Organization [facility] Address [address] [place] [phone] Phone Care Team Providers Care Production Officer Name Role Phone Tra Sanchez DO Primary Care Provider [phone] Allergies No known active allergies Medications cholecalciferol [...] Comments Blood Pressure 118/70 04/07/2020 9:20 AM BEHAVIORAL SCIENCES INSTRUCTOR Pulse 60 04/07/2020 9:20 AM BEHAVIORAL SCIENCES INSTRUCTOR Temperature 34.8 C (94.7 F) 04/07/2020 9:20 AM BEHAVIORAL SCIENCES INSTRUCTOR Respiratory Rate - - Oxygen Saturation - - Inhaled Oxygen Concentration - - Weight 89.4 kg (197 lb) 04/07/2020 9:20 AM BEHAVIORAL SCIENCES INSTRUCTOR Height 154.9 cm (5' 1 ) 04/07/2020 9:20 AM BEHAVIORAL SCIENCES INSTRUCTOR Body Mass Index 37.22 04/07/2020 9:20 AM BEHAVIORAL SCIENCES INSTRUCTOR Plan of Treatment Health Maintenance Due Date Last Done Comments Pneumococcal PPSV23/PCV13 65 + Years / Low and Medium Risk (2 of 3 - PPSV23) 01/28/2021 01/29/2020 Influenza Vaccine (Season Ended) 2024 Insurance [employer] HMO Care Teams Production Officer Relationship Specialty Start Date End Date Tra Sanchez DO [address] [place] [address] PCP - General Internal Medicine 11/20/19
--- OUTSIDE RECORDS SUMMARY | 2024-07-29 00:35 | XMS_ITS | Clinical Summary ---
Author Organization [facility] Address [address] [place] [address] Care Team Providers Care Coal Handling Supervisor Name Role Phone Tra Sanchez DO Primary Care Provider [phone] Allergies No known active allergies Medications raNITIdine [...] often do you attend chur ch or cheondoism services? Never 09/04/2018 Do you belong to any clubs o r organizations such as buddhist groups, unions, fraternal or athletic groups, or [...] series) 08/28/2026 Medical Devices Implanted Type Area Internet Developer Device Identifier Shelf Expiration Date Model / Serial / Lot Cage 7-13, 10x22 Implanted:Qty: 1 on 09/04/2018 by Jaime Vee MD at [facility] N/A: Spine Lumbar [employer] 193.101 / / Description:ENTERED BY RN [id number] Cage 7-13, 8x22 Implanted:Qty: 1 on 09/04/2018 by Jaime Vee MD at [facility] N/A: Spine Lumbar [employer] 193.001 / / Description:ENTERED BY RN [id number] Hemostatic Surgifoam 1gm 1977 Sn/A Implanted:Qty: 1 on 09/04/2018 by Jaime Vee MD at [facility] Hemostatic N/A: Spine Lumbar J&J- [employer] 06/17/20201977 / N/A / [id number] Description:REQ#[id number] REQ#[id number] Francisco Cdh Spn Ccm Cap [id number] - Ssterilized On 08/22/2018 Implanted:Qty: 2 on 09/04/2018 by Jaime Vee MD at [facility] [place] N/A: Spine Lumbar [employer]- SOFAMOR DANEK [id number] / STERILIZED ON 08/22/2018 / LOAD #[id number] Screw Solera Karen Ma [id number] - Ssterilized On 08/22/2018 Implanted:Qty: 1 on 09/04/2018 by Jaime Vee MD at [facility] Screw N/A: Spine Lumbar [employer]- SOFAMOR [employer]ANEK [id number] / STERILIZED ON 08/22/2018 / LOAD #[id number] Screw Solera Karen Ma [id number] - Ssterilized On 08/22/2018 Implanted:Qty: 1 on 09/04/2018 by Jaime Vee MD at [facility] N/A: Spine Lumbar [employer]- SOFAMOR [employer]ANEK [id number] / STERILIZED ON 08/22/2018 / LOAD #[id number] Screw Solera Karen Ma [id number] - Ssterilized On 08/22/2018 Implanted:Qty: 2 on 09/04/2018 by Jaime Vee MD at [facility] N/A: Spine Lumbar [employer]- SOFAMOR DANEK [id number] / STERILIZED ON 08/22/2018 / LOAD #[id number] Set Screw Solera Perc 4.75mm [id number] - Ssterilized On 08/22/2018 Implanted:Qty: 5 on 09/04/2018 by Jaime Vee MD at [facility] N/A: Spine Lumbar [employer]- SOFAMOR [employer]ANEK [id number] / STERILIZED ON 08/22/2018 / LOAD #[id number] Screw Solera Karen Ma 7.5x30mm Implanted:Qty: 1 on 09/04/2018 by Jaime Vee MD at [facility] N/A: Spine Lumbar [employer] [id number] / STERILIZED ON 08/22/2018 / LOAD #[id number] Description:ENTERED BY KELSY [id number] Infuse Protein Kit [id number] - Sn/A Implanted:Qty: 1 on 09/04/2018 by Jaime Vee MD at [facility] Tissue N/A: Spine Lumbar [employer]- SOFAMOR DANEK 11/30/2020 [id number] / N/A / [id number] [place] [address] [address] [facility] Address: [facility] [address] [address] RX MEDIMPACT Member Subscriber Plan / Payer (Ef fective 2016-Present) Name:Sarika Arora Relation to Subscriber:Self Name:Sarika Arora Payer ID:Not on file Group ID:[id number] Type:RX Medicare Part D Address: [address] RX LIRA PLANS (INTERNAL) [facility] Plans Advance Directives For more information, please contact: [phone] * Full Code (Latest Code Status on File) Date Activated Date Inactivated Comments 09/04/2018 3:26 PM 09/07/2018 4:57 PM Care Teams Coal Handling Supervisor Relationship Specialty Start Date End Date Tra Sanchez DO PCP - General Internal Medicine 07/25/18
[2024-07-29] MEDS: LACTATED RINGERS 1,000 ML 30 ML IV CONT ×2 (06:45→10:30)
--- NOTE | 2024-07-29 07:35 | WPDANESEPPF ---
Anes - Initial Pre Proc Eval Procedure: Operation Date: 07/29/24 07:30 Proposed Procedures p L2-3 Posterior Lumbar Interbody Fusion, Revision Posterior Instrumentation - Stalin Najera MD Date/Time: 07/29/24 07:35 Surgeon: Stalin Najera MD Pre Op Diagnosis: L2-3 retrolisthesis, neuroforaminal narrowing Patient Data Age: 73 Gender: F Height: 1.57 m Weight: 92.5 kg Last Vital Signs Temp 97.8 F 07/18/24 12:39 Pulse 70 07/18/24 12:39 Resp 18 07/18/24 12:39 BP 131/73 07/18/24 12:39 Pulse Ox 97 07/18/24 12:39 O2 Del Method Room Air 07/18/24 12:39 Allergies Allergy/AdvReac Type Severity Reaction Status Date / Time No Known Allergies Allergy Verified 07/18/24 12:08 Home Medications ?Medication ?Instructions ?Recorded ?Confirmed ?Type cholecalciferol (vitamin D3) 125 125 mcg PO DAILY 10/06/20 07/18/24 History mcg (5,000 unit) capsule fexofenadine 60 mg tablet (Scarlett 60 mg PO Q12H PRN Allergy Symptoms 10/13/20 07/18/24 History Allergy) calcium carbonate 500 mg PO DAILY #90 tabs 11/07/21 07/18/24 Rx flecainide 50 mg tablet See Rx Instructions .Route 02/28/23 07/18/24 Rx .COMPLEX #180 tabs rosuvastatin 40 mg tablet 40 mg PO DAILY #90 tabs 03/29/23 07/18/24 Rx aripiprazole 5 mg tablet 5 mg PO QAM #90 tabs 08/06/23 07/18/24 Rx escitalopram oxalate 20 mg tablet 20 mg PO QAM #90 tabs 09/26/23 07/18/24 Rx furosemide 40 mg tablet 40 mg PO QAM #90 tabs 12/24/23 07/18/24 Rx acetaminophen 500 mg capsule 1,000 mg (2 x 500 mg) PO Q6H PRN 12/25/23 07/18/24 Rx Pain #60 caps metoprolol succinate 25 mg See Rx Instructions .Route 01/28/24 07/18/24 Rx tablet,extended release 24 hr .COMPLEX #90 tabs bupropion HCl 300 mg 24 hr tablet, See Rx Instructions .Route 04/29/24 07/18/24 Rx extended release .COMPLEX #90 tabs lisinopril 40 mg tablet 40 mg PO QAM #90 tabs 04/29/24 07/18/24 Rx omeprazole 20 mg capsule,delayed 20 mg PO QAM #30 caps 04/29/24 07/18/24 Rx release apixaban 5 mg tablet (Eliquis) 5 mg PO BID #60 tabs 05/20/24 07/18/24 Rx Patient hx anesthesia problems: other (states had significant psychotic, hallucinations, etc episodes last time with anesthesia that lasted for a week) Family hx anesthesia problems: none Results Review: All pre-operative results and documents have been reviewed as part of the pre-operative evaluation. [facility] Past Medical History Medical History (Updated 04/22/24 @ 12:10 by JEANNINE Arevalo) BMI 38.0-38.9,adult Depression Diverticulitis Stress incontinence Chronic anticoagulation Paroxysmal atrial fibrillation Gastroesophageal reflux disease Adenomatous colon polyp RAZA (obstructive sleep apnea) Postmenopausal Essential (primary) hypertension Pure hypercholesterolemia Surgical History Surgical History History of benign breast biopsy Sacral nerve stimulator present History of hysterectomy (1994) History of back surgery Family History Family History (Updated 04/22/24 @ 12:11 by JEANNINE Arevalo) Father Family history of throat cancer Sibling Acute myocardial infarction Diabetes mellitus Mother Diabetes mellitus Acute myocardial infarction Other Family history of cardiovascular disease Family history of malignant neoplasm Hypertension Social History Social History (Updated 04/22/24 @ 12:11 by JEANNINE Arevalo) Smoking packs per day: 1 Smoking cigarettes per day: 20.0 Years smoked: 10 Smoking pack-years: 10.00 Smoking status: Former smoker Tobacco type: cigarettes Second hand tobacco smoke exposure: Yes Smoking end date: 04/02/92 Alcohol intake: current Alcohol use details: Social alcohol use. 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 Informed Consent: The patient's anesthetic plan and its attendant risks and benefits were discussed with the patient/family/POA. Questions were solicited and answers provided to the satisfaction of the patient/family/POA.
--- NOTE | 2024-07-29 07:49 | P.HP_ITS ---
H&P: HPI History of Present Illness Date/Time: 07/29/24 07:49 Chief Complaint: Back and leg pain Narrative: Ms. Arora is here today in follow-up of her CT myelogram of the lumbar spine. She is a 73-year-old female who is well known to us for problems related to her back and who underwent an L3-4 posterior lumbar interbody fusion in July of 2022. We last saw her in follow up of that surgery. She initially did well but now is complaining of pain in the right thigh going down to the knee and back pain. That is the pain radiates from her back into her right lower extremity down to the knee. She has participated in pain management undergone injections without permanent benefit. She does not report specific muscle group weakness and occasionally has dermatomal numbness in the same distribution as the discomfort. She always has at least a dull ache and at times sharp pain that is limiting and distracting for her. At times the pain is severe. It has been going on for a few months. That is, at least since September. It has been progressive and unfortunately has not gotten better nonsurgically. She has not changed appreciably since we last saw her. She is here to discuss the new CT myelogram as mentioned. [facility] Past Medical History Medical History (Updated 04/22/24 @ 12:10 by JEANNINE Arevalo) BMI 38.0-38.9,adult Depression Diverticulitis Stress incontinence Chronic anticoagulation Paroxysmal atrial fibrillation Gastroesophageal reflux disease Adenomatous colon polyp RAZA (obstructive sleep apnea) Postmenopausal Essential (primary) hypertension Pure hypercholesterolemia Surgical History Surgical History History of benign breast biopsy Sacral nerve stimulator present History of hysterectomy (1994) History of back surgery Family History Family History (Updated 04/22/24 @ 12:11 by JEANNINE Arevalo) Father Family history of throat cancer Sibling Acute myocardial infarction Diabetes mellitus Mother Diabetes mellitus Acute myocardial infarction Other Family history of cardiovascular disease Family history of malignant neoplasm Hypertension Social History Social History (Updated 04/22/24 @ 12:11 by JEANNINE Arevalo) Smoking packs per day: 1 Smoking cigarettes per day: 20.0 Years smoked: 10 Smoking pack-years: 10.00 Smoking status: Former smoker Tobacco type: cigarettes Second hand tobacco smoke exposure: Yes Smoking end date: 04/02/92 Alcohol intake: current Alcohol use details: Social alcohol use. 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 Gender identity (if verbalized by the patient): Female Spiritual care concerns: No Meds Home Medications and Allergies Home Medications ?Medication ?Instructions ?Recorded ?Confirmed ?Type cholecalciferol (vitamin D3) 125 125 mcg PO DAILY 10/06/20 07/18/24 History mcg (5,000 unit) capsule fexofenadine 60 mg tablet (Scarlett 60 mg PO Q12H PRN Allergy Symptoms 10/13/20 07/18/24 History Allergy) calcium carbonate 500 mg PO DAILY #90 tabs 11/07/21 07/18/24 Rx flecainide 50 mg tablet See Rx Instructions .Route 02/28/23 07/18/24 Rx .COMPLEX #180 tabs rosuvastatin 40 mg tablet 40 mg PO DAILY #90 tabs 03/29/23 07/18/24 Rx aripiprazole 5 mg tablet 5 mg PO QAM #90 tabs 08/06/23 07/18/24 Rx escitalopram oxalate 20 mg tablet 20 mg PO QAM #90 tabs 09/26/23 07/18/24 Rx furosemide 40 mg tablet 40 mg PO QAM #90 tabs 12/24/23 07/18/24 Rx acetaminophen 500 mg capsule 1,000 mg (2 x 500 mg) PO Q6H PRN 12/25/23 07/18/24 Rx Pain #60 caps metoprolol succinate 25 mg See Rx Instructions .Route 01/28/24 07/18/24 Rx tablet,extended release 24 hr .COMPLEX #90 tabs bupropion HCl 300 mg 24 hr tablet, See Rx Instructions .Route 04/29/24 07/18/24 Rx extended release .COMPLEX #90 tabs lisinopril 40 mg tablet 40 mg PO QAM #90 tabs 04/29/24 07/18/24 Rx omeprazole 20 mg capsule,delayed 20 mg PO QAM #30 caps 04/29/24 07/18/24 Rx release apixaban 5 mg tablet (Eliquis) 5 mg PO BID #60 tabs 05/20/24 07/18/24 Rx Allergies Allergy/AdvReac Type Severity Reaction Status Date / Time No Known Allergies Allergy Verified 07/18/24 12:08
[2024-07-29] MEDS: ceFAZolin 2 GM/D5W 50 ML 2 GM/50 ML BAG IVPB (07:51)
--- NOTE | 2024-07-29 07:51 | P.HP_ITS ---
H&P: HPI History of Present Illness Date/Time: 07/29/24 07:51 Chief Complaint: Back and leg pain Narrative: Ms. Arora is a 73-year-old female who is well known to us for problems related to her back and who underwent an L3-4 posterior lumbar interbody fusion in July of 2022. We last saw her in follow up of that surgery. She initially did well but now is complaining of pain in the right thigh going down to the knee and back pain. That is the pain radiates from her back into her right lower extremity down to the knee. She has participated in pain management undergone injections without permanent benefit. She does not report specific muscle group weakness and occasionally has dermatomal numbness in the same distribution as the discomfort. She always has at least a dull ache and at times sharp pain that is limiting and distracting for her. At times the pain is severe. It has been going on for a few months. That is, at least since September. It has been progressive and unfortunately has not gotten better nonsurgically. She has not changed appreciably since we last saw her. Review of Systems Review of Systems: All systems reviewed & are unremarkable except as noted in HPI and below Denies chills, Denies fever, Denies weight gain and Denies weight loss Eyes Denies change in vision and Denies diplopia ENT Denies disequilibrium Card Denies chest pain and Denies dyspnea Resp Denies cough and Denies dyspnea GI Denies abdominal pain, Denies change in bowel habits, Denies fecal incontinence and Denies vomiting Denies hematuria, Denies oliguria, Denies difficulty urinating, Denies dysuria, Denies urinary frequency, Denies urinary hesitancy, Denies urinary incontinence and Denies urinary urgency Musc Reports as per HPI Skin/ Breast Reports system reviewed and no additional complaints, except as documented Neuro Reports as per HPIPsych Reports no additional complaints, Denies depression and Denies hopelessness Endo Reports no additional complaints and Denies polyuria Nelson/ Lymph Reports no additional complaints Aller/ Immun Reports no additional complaints [facility] Past Medical History Medical History (Updated 04/22/24 @ 12:10 by Amanda Navarro Polo) BMI 38.0-38.9,adult Depression Diverticulitis Stress incontinence Chronic anticoagulation Paroxysmal atrial fibrillation Gastroesophageal reflux disease Adenomatous colon polyp RAZA (obstructive sleep apnea) Postmenopausal Essential (primary) hypertension Pure hypercholesterolemia Surgical History Surgical History History of benign breast biopsy Sacral nerve stimulator present History of hysterectomy (1994) History of back surgery Family History Family History (Updated 04/22/24 @ 12:11 by JEANNINE Arevalo) Father Family history of throat cancer Sibling Acute myocardial infarction Diabetes mellitus Mother Diabetes mellitus Acute myocardial infarction Other Family history of cardiovascular disease Family history of malignant neoplasm Hypertension Social History Social History (Updated 04/22/24 @ 12:11 by JEANNINE Arevalo) Smoking packs per day: 1 Smoking cigarettes per day: 20.0 Years smoked: 10 Smoking pack-years: 10.00 Smoking status: Former smoker Tobacco type: cigarettes Second hand tobacco smoke exposure: Yes Smoking end date: 04/02/92 Alcohol intake: current Alcohol use details: Social alcohol use. 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 Gender identity (if verbalized by the patient): Female Spiritual care concerns: No Meds Home Medications and Allergies Home Medications ?Medication ?Instructions ?Recorded ?Confirmed ?Type cholecalciferol (vitamin D3) 125 125 mcg PO DAILY 10/06/20 07/18/24 History mcg (5,000 unit) capsule fexofenadine 60 mg tablet (Scarlett 60 mg PO Q12H PRN Allergy Symptoms 10/13/20 07/18/24 History Allergy) calcium carbonate 500 mg PO DAILY #90 tabs 11/07/21 07/18/24 Rx flecainide 50 mg tablet See Rx Instructions .Route 02/28/23 07/18/24 Rx .COMPLEX #180 tabs rosuvastatin 40 mg tablet 40 mg PO DAILY #90 tabs 03/29/23 07/18/24 Rx aripiprazole 5 mg tablet 5 mg PO QAM #90 tabs 08/06/23 07/18/24 Rx escitalopram oxalate 20 mg tablet 20 mg PO QAM #90 tabs 09/26/23 07/18/24 Rx furosemide 40 mg tablet 40 mg PO QAM #90 tabs 12/24/23 07/18/24 Rx acetaminophen 500 mg capsule 1,000 mg (2 x 500 mg) PO Q6H PRN 12/25/23 07/18/24 Rx Pain #60 caps metoprolol succinate 25 mg See Rx Instructions .Route 01/28/24 07/18/24 Rx tablet,extended release 24 hr .COMPLEX #90 tabs bupropion HCl 300 mg 24 hr tablet, See Rx Instructions .Route 04/29/24 07/18/24 Rx extended release .COMPLEX #90 tabs lisinopril 40 mg tablet 40 mg PO QAM #90 tabs 04/29/24 07/18/24 Rx omeprazole 20 mg capsule,delayed 20 mg PO QAM #30 caps 04/29/24 07/18/24 Rx release apixaban 5 mg tablet (Eliquis) 5 mg PO BID #60 tabs 05/20/24 07/18/24 Rx Allergies Allergy/AdvReac Type Severity Reaction Status Date / Time No Known Allergies Allergy Verified 07/29/24 07:57 Exam Narrative: General: cooperative, no acute distress, well developed, alert and awake Orientation/Consciousness: oriented to person, oriented to place and oriented to time Constitutional Limitations: no limitations Other: The patient is a normally developed, normal appearing male sitting on the examination table in no acute distress. He is awake, alert, and oriented x3 with good fund of knowledge, recall of events, and fluent speech. [facility] Head: normocephalic and atraumatic Ears: external ears normal Face/Nose/Sinus: Normal external nose present Eyes Eyelids: eyelids normal Pupils: Yes Pupils normal by confrontation EOM: EOMs intact bilaterally Neck General: Yes no meningeal signs, Yes supple and Yes no JVD Resp Effort/Inspection: normal respiratory effort and able to speak in complete sentences Cardio Rate: Yes regular rate GI Inspection: No abdominal distension Musc Other: Examination of the back reveals mild paraspinal tenderness. Range of motion of the back Painful in extension more than flexion or lateral rotation and is limited.. Straight leg raise is negative bilaterally. Christian?s test is negative bilaterally. Skin General: normal color Neuro General: Yes oriented to person, Yes oriented to place, Yes oriented to time, Yes normal cognition and Yes no meningeal signs Cranial Nerves: Yes CN's II-XII intact bilaterally Other: Motor: Strength is normal, 5/5, throughout all muscle groups of the bilateral upper and lower extremities to direct confrontation. Sensory: Sensation is intact to light touch throughout the upper and lower extremities bilaterally. Reflexes: deep tendon reflexes are difficult to elicit at the knees or ankles bilaterally. Gait: Gait, station, and transfers are independent and steady for short periods of time and over short distances. Psych Appearance: grossly normal Mental status: Yes mental status grossly normal Mood: congruent mood Affect: Yes normal affect Speech/Movement: Normal speech and movement present Attitude: Yes cooperative Thought Content: Normal thought content present Assessment and Plan Assessment and plan (1) Spinal stenosis, lumbar region without neurogenic claudication: Code(s): M48.061 - Spinal stenosis, lumbar region without neurogenic claudication Status: Acute Plan Ms. Arora is a 73-year-old female with back and leg pain related to the spondylolisthesis L2-3 is retrolisthesis causing severe foraminal stenosis. I have recommended her advancement of her fusion up to L2 by way of L2-3 posterior lumbar interbody fusion. We will remove the anjel at the adjacent level and use a longer anjel to connect from below L4 up to L2. I described to her that operation, its risks, potential benefits, the operative and postoperative course in detail and answered all her questions personally. We discussed risks including but not limited to permanent neurologic deficit secondary to nerve root injury, need for reoperation secondary to infection, bleeding, CSF leak, adjacent level disease, recurrent or residual pathology or instability, failure of the procedure to relieve her pain or symptoms, persistent pain, medical complications related anesthesia or surgery, malposition migration of the hardware or nonunion, etc.. She indicates understanding and elects to proceed with that operation.
--- NOTE | 2024-07-29 07:58 | WPDHPUPDATE1 ---
History and Physical Update Update Date/Time: 07/29/24 07:58 History and Physical has been reviewed, including an updated exam of the patient. There are NO changes in the patient's condition. Risks, benefits, and alternatives have been discussed and questions answered. Patient agrees to proceed with procedure.
[2024-07-29] MEDS: LIDO 1%/EPINEPHRINE/PF 1:200,000 30 ML VIAL 10 ML XX (08:21)
--- NOTE | 2024-07-29 10:24 | P.OP_ITS ---
Procedure Note - Detailed Date of Procedure 07/29/24 Pre-op Diagnosis L2-3 retrolisthesis, neuroforaminal narrowing Post-op Diagnosis Same Procedure Performed L2-3 posterior lumbar interbody fusion, revision of posterior instrumentation Surgeon Stalin Najera MD Anesthesia General Description of Procedure The patient was brought to the operating room in supine position, was sedated, intubated placed under general anesthesia in routine fashion. She was then turned into the prone position on open Beka table. The of operation on her back was examined, marked for incision, prepped and draped in routine sterile fashion. Incision was marked over the L2-3 for spinous processes in the midline. This area was injected with 0.5% lidocaine with [id number] epinephrine. Intravenous antibiotics given prior to incision. Incision was made with a 10 blade scalpel down to the lumbodorsal fascia. A subperiosteal dissection of the muscle soft tissue away from spinous process and lamina at L 2 was performed with a subperiosteal elevator and Bovie cautery. A verifying x-rays obtained to verify the level of operation. The instrumentation at L2-4 was uncovered using Bovie cautery. The spinous process of L2 was removed using a Elza rongeur. Kerrison punches, curved curettes and a Leksell rongeur used to remove the lamina in the midline until the soft contents of the canal were encountered. A Midas Rc drill was used to resect the pars bilaterally at L2. The inferior process and facet of L2 could then be removed bilaterally. These +spinous process were stripped free of soft tissue morselized for later use as interbody autograft. Kerrison punches and curved curettes were used to define a plane with the dura and removed bone ligament flush pedicle and through the foramina widely decompressing the exiting nerve roots. With the thecal sac retracted and protected the disc space was entered on the left using 11 blade scalpel. Script was a very sizes, curettes Veress configurations, pituitary rongeur and a rasp were used to remove as much cartilaginous endplate and disc material as possible down to bleeding cortical flat surfaces on the opposing bones. The disc spaces in size a 10 mm x 26 mm interbody device was chosen and filled with local autograft bone. The disc spaces likewise filled with local autograft bone medially and anteriorly. The interbody device was then placed diagonally across the disc space to a 2-3 mm countersink. Pedicle screw instrumentation was then performed at L2 by observing palpating the pedicle a hole was made and severe articular process above the pedicle using Midas Rc drill. The pedicle was then cannulated with a pedicle probe, checked for comminuted ball probe, tapped with a 5.5 mm tap and a 6.5 x 50 mm screw was placed in each L2 pedicle. The caps were removed at the L3 screw and on the lateral connector. New rods were then placed between the lateral connector, the L3 screw in the L2 screw. These were secured in position using the appropriate caps and definitively tightened with a torque and anti torque device. A verify ing x-rays obtained to verify good position of the instrumentation. The wound was then copiously irrigated with bacitracin irrigation all bleeding stopped with bipolar Bovie cautery and Gelfoam thrombin powder. The wound was then closed in layered fashion with 2-0 Vicryl interrupted sutures in the lumbodorsal fascia and Jimbo's layer. 3-0 Vicryl buried interrupted sutures were placed in the dermis and skin was closed with a running 4-0 Monocryl subcuticular stitch and dressed with Dermabond. A medium Hemovac drain to be placed in a subfascial position buried out to the inferior right of the incision prior to closure. The patient was allowed to wake up in the operating room and was taken to the recovery room in stable condition. There were no immediate complications of this operation. All counts reported correct at the end of the case. Blood loss was 450 cc. The patient was neurologically at her baseline postoperatively. CPT codes: 87402, 95070, 87326, 22314, 53871 Estimated Blood Loss 450 Drains Yes Complications None Condition Stable Disposition PACU [facility] Billing Surgery - Charge Forward: Surgery Billing
[2024-07-29] MEDS: ONDANSETRON INJ 4 MG/2 ML VIAL IV PUSH (12:36)
[2024-07-29] MEDS: MORPHINE SULFATE (*CRX) 2 MG/ML INJ IV PUSH ×3 (12:37→20:46)
--- NOTE | 2024-07-29 12:50 | ADMGEN ---
This patient, Sarika Arora, was admitted to 3 [facility] Surg Room 307-01. Patient/family oriented to hospital policies and general routines including ID bracelet, bed and alarms, visiting hours, pain management, procedures, bathroom and other care routines, personal items, smoking policy, room service/diet, and visiting hours. Information on how to activate the Rapid Response Team has been discussed. Patient/Family are encouraged to report perceived risks to care and to ask questions if they do not understand what they are told or what they should do.
--- OUTSIDE RECORDS SUMMARY | 2024-07-29 13:28 | XMS_ITS | Clinical Summary ---
Author Organization [facility] Address [address] [place] [id number] Phone Care Team Providers Care Glue Maker Bone Name Role Phone Tra Sanchez DO Primary Care Provider [phone] Allergies No known active allergies Medications cholecalciferol [...] Comments Blood Pressure 118/70 04/07/2020 9:20 AM SANITATION LEAD Pulse 60 04/07/2020 9:20 AM SANITATION LEAD Temperature 34.8 C (94.7 F) 04/07/2020 9:20 AM SANITATION LEAD Respiratory Rate - - Oxygen Saturation - - Inhaled Oxygen Concentration - - Weight 89.4 kg (197 lb) 04/07/2020 9:20 AM SANITATION LEAD Height 154.9 cm (5' 1 ) 04/07/2020 9:20 AM SANITATION LEAD Body Mass Index 37.22 04/07/2020 9:20 AM SANITATION LEAD Plan of Treatment Health Maintenance Due Date Last Done Comments Pneumococcal PPSV23/PCV13 65 + Years / Low and Medium Risk (2 of 3 - PPSV23) 01/28/2021 01/29/2020 Influenza Vaccine (Season Ended) 2024 Insurance [employer] HMO Care Teams Glue Maker Bone Relationship Specialty Start Date End Date Tra Sanchez DO [address] [place] [address] PCP - General Internal Medicine 11/20/19
--- OUTSIDE RECORDS SUMMARY | 2024-07-29 13:28 | XMS_ITS | Clinical Summary ---
Author Organization [facility] Address [address] [place] [id number] Care Team Providers Care Stroke Coordinator Name Role Phone Tra Sanchez DO Primary Care Provider [phone] Allergies No known active allergies Medications raNITIdine [...] often do you attend chur ch or amish services? Never 09/04/2018 Do you belong to any clubs o r organizations such as hoahaoism groups, unions, fraternal or athletic groups, or [...] series) 08/28/2026 Medical Devices Implanted Type Area Toll Gate Keeper Device Identifier Shelf Expiration Date Model / Serial / Lot Cage 7-13, 10x22 Implanted:Qty: 1 on 09/04/2018 by Jaime Vee MD at [facility] N/A: Spine Lumbar [employer] 193.101 / / Description:ENTERED BY RN [id number] Cage 7-13, 8x22 Implanted:Qty: 1 on 09/04/2018 by Jaime Vee MD at [facility] N/A: Spine Lumbar [employer] 193.001 / / Description:ENTERED BY RN [id number] Hemostatic Surgifoam 1gm 1977 Sn/A Implanted:Qty: 1 on 09/04/2018 by Jaime Vee MD at [facility] Hemostatic N/A: Spine Lumbar [employer] 06/17/20201977 / N/A / [id number] Description:REQ#[id number] REQ#[id number] Cdh Spn Ccm Cap [id number] - Ssterilized On 08/22/2018 Implanted:Qty: 2 on 09/04/2018 by Jaime Vee MD at [facility] Francisco N/A: Spine Lumbar [employer] SOFAMOR DANEK [id number] / STERILIZED ON 08/22/2018 / LOAD #[id number] Screw Solera Karen Ma [id number] - Ssterilized On 08/22/2018 Implanted:Qty: 1 on 09/04/2018 by Jaime Vee MD at [facility] Screw N/A: Spine Lumbar [employer] SOFAMOR [employer]ANEK [id number] / STERILIZED ON 08/22/2018 / LOAD #[id number] Screw Solera Karen Ma [id number] - Ssterilized On 08/22/2018 Implanted:Qty: 1 on 09/04/2018 by Jaime Vee MD at [facility] N/A: Spine Lumbar [employer] SOFAM[employer]ANEK [id number] / STERILIZED ON 08/22/2018 / LOAD #[id number] Screw Solera Karen Ma [id number] - Ssterilized On 08/22/2018 Implanted:Qty: 2 on 09/04/2018 by Jaime Vee MD at [facility] N/A: Spine Lumbar [employer]K [id number] / STERILIZED ON 08/22/2018 / LOAD #[id number] Set Screw Solera Perc 4.75mm [id number] - Ssterilized On 08/22/2018 Implanted:Qty: 5 on 09/04/2018 by Jaime Vee MD at [facility] N/A: Spine Lumbar [employer] SOFAM[employer]ANEK [id number] / STERILIZED ON 08/22/2018 / LOAD #[id number] Screw Solera Karen Ma 7.5x30mm Implanted:Qty: 1 on 09/04/2018 by Jaime Vee MD at [facility] N/A: Spine Lumbar [employer] [id number] / STERILIZED ON 08/22/2018 / LOAD #[id number] Description:ENTERED BY KELSY [id number] Infuse Protein Kit [id number] - Sn/A Implanted:Qty: 1 on 09/04/2018 by Jaime Vee MD at [facility] Tissue N/A: Spine Lumbar [employer] SOFAMOR DANEK 11/30/2020 [id number] / N/A / [id number] [place] [address] [address] [place] [address] RX MEDIMPACT Member Subscriber Plan / Payer (Ef fective 2016-Present) Name:Sarika Arora Relation to Subscriber:Self Name:Sarika Arora Payer ID:Not on file Group ID:[id number] Type:RX Medicare Part D Address: [address] RX [employer] PLANS (INTERNAL) [facility] Advance Directives For more information, please contact: [phone] * Full Code (Latest Code Status on File) Date Activated Date Inactivated Comments 09/04/2018 3:26 PM 09/07/2018 4:57 PM Care Teams Stroke Coordinator Relationship Specialty Start Date End Date Tra Sanchez DO PCP - General Internal Medicine 07/25/18
[2024-07-29] MEDS: ceFAZolin 1 GM/NS 50 ML 1 GM/50 ML BAG IVPB ×2 (15:59→23:18)
[2024-07-29] MEDS: DOCUSATE SODIUM 100 MG CAPSULE PO (20:45)
[2024-07-29] MEDS: FLECAINIDE ACETATE 50 MG TABLET BY MOUTH (20:45)
[2024-07-29] MEDS: HYDROcodone/acetaminophen (*CRX) 10-325 MG TABLET 1 TAB PO (23:16)
[2024-07-30] VITALS (9 sets, daily range): BP systolic 98–114; BP diastolic 52–68; PULSE 68–83; RESP 16–18; TEMP 36.1–37; O2SAT 92–99
[2024-07-30] MEDS: HYDROcodone/acetaminophen (*CRX) 10-325 MG TABLET 1 TAB PO ×6 (02:54→23:20)
[2024-07-30] MEDS: ROSUVASTATIN 20 MG TABLET 40 MG PO (09:05)
[2024-07-30] MEDS: buPROPion HCL XL (24 HR) 150 MG TABCR 300 MG BY MOUTH (09:05)
[2024-07-30] MEDS: CHOLECALCIFEROL 5,000 UNITS TABLET 5000 UNITS PO (09:05)
[2024-07-30] MEDS: ceFAZolin 1 GM/NS 50 ML 1 GM/50 ML BAG IVPB ×3 (09:05→23:16)
[2024-07-30] MEDS: ESCITALOPRAM OXALATE 10 MG TABLET 20 MG PO (09:06)
[2024-07-30] MEDS: FUROSEMIDE 40 MG TABLET PO (09:06)
[2024-07-30] MEDS: CALCIUM CARBONATE (OSCAL) 500 MG TABLET PO (09:06)
[2024-07-30] MEDS: METOPROLOL SUCCINATE EXT REL 25 MG TABCR BY MOUTH (09:06)
[2024-07-30] MEDS: FLECAINIDE ACETATE 50 MG TABLET BY MOUTH ×2 (09:07→20:59)
[2024-07-30] MEDS: DOCUSATE SODIUM 100 MG CAPSULE PO ×2 (09:07→20:59)
[2024-07-30] MEDS: PANTOPRAZOLE 40 MG TABLET PO (09:08)
[2024-07-30] MEDS: ARIPiprazole 5 MG TABLET PO (09:13)
[2024-07-30] MEDS: ONDANSETRON INJ 4 MG/2 ML VIAL IV PUSH (12:36)
--- NOTE | 2024-07-30 14:38 | WPDANESPN ---
Anes - Prog Note Post-Op Date/Time: 07/30/24 14:38 Cardiovascular status: normal Respiratory status: normal Airway patency: baseline Mental status: baseline Post-Op hydration status: normal Vital Signs: Last Vital Signs Temp 36.7 C 07/30/24 11:56 Pulse 70 07/30/24 11:56 Resp 16 07/30/24 11:56 BP 98/68 L 07/30/24 11:56 Pulse Ox 92 07/30/24 11:56 O2 Del Method Room Air 07/30/24 10:00 O2 Flow Rate 2 07/29/24 14:43 Pain Score (VAS): 2 I/O: Intake & Output 07/29/24 07/30/24 07/30/24 23:59 07:59 15:59 Intake Total 340 290 Output Total 420 800 Balance -80 -800 290 Post-procedural complaints: none Patient Feedback: Patient satisfied with anesthetic care.
--- NOTE | 2024-07-30 15:21 | WPDNEUROSGPN ---
Progress Note: A&P Assessment and Plan (1) Spinal stenosis, lumbar region without neurogenic claudication: Code(s): M48.061 - Spinal stenosis, lumbar region without neurogenic claudication Status: Acute Assessment and Plan: Assessment: Doing well Pod 1 status post revision L2-L3 PSF with interbody fusion by Dr. Najera. Plan: - Pain control - PT/OT for mobility and safety - Call for changes in neurological status - discharge likely in 1-2 days Time Spent With Patient Time with patient: less than 15 minutes Subjective Date/time seen: 07/30/24 15:21 Interval history: POD 1 status post posterior lumbar interbody fusion and revision of instrumentation L2-L3 with Dr. Najera. she states there is no change in her preoperative symptoms yet. She was feeling a little bit better but pushed it a little in terms of her activity today and is feeling nauseated. She denies any new numbness, weakness, bowel/bladder issues. She is resting comfortably in bed with family member at bedside. Exam Narrative: Patient is awake and resting comfortably in bed. A&O x4. Incision clean/ dry /intact. Full lower extremity strength and sensation. No abdominal distention. Normal respiratory effort. Objective Data Vital Signs Vital Signs: Vital Signs - 24 hr 07/29/24 15:58 07/29/24 22:37 07/30/24 02:37 Temperature 98.7 F 98.3 F Pulse Rate 63 76 83 Respiratory Rate 16 18 16 Blood Pressure 116/64 111/43 L 110/52 L Pulse Oximetry 96 100 97 Oxygen Delivery 07/30/24 06:15 07/30/24 08:00 07/30/24 09:06 Temperature 98.6 F 98.0 F Pulse Rate 72 70 74 Respiratory Rate 16 16 Blood Pressure 114/62 99/62 L Pulse Oximetry 98 97 Oxygen Delivery 07/30/24 09:07 07/30/24 10:00 07/30/24 11:56 Temperature 98.1 F Pulse Rate 74 70 Respiratory Rate 16 Blood Pressure 98/68 L Pulse Oximetry 92 Oxygen Delivery Room Air Intake/Output Intake/Output: Intake & Output 07/27/24 07/28/24 07/29/24 07/30/24 23:59 23:59 23:59 23:59 Intake Total 390 290 Output Total 420 800 Balance -30 -510 Meds/Results Medications: Active Medications Generic Name Dose Route Start Last Admin Trade Name Freq PRN Reason Stop Dose Admin Acetaminophen 1,000 mg 07/29/24 11:37 Acetaminophen 500 Mg Tablet PO Q6H PRN Pain Hydrocodone Bitart/Acetaminophen 1 tab 07/29/24 11:37 Hydrocodone/Acetaminophen (*Crx) 5-325 Mg Tablet PO Q4H PRN Mild Pain (1-3) Hydrocodone Bitart/Acetaminophen 1 tab 07/29/24 11:37 07/30/24 15:06 Hydrocodone/Acetaminophen (*Crx) 10-325 Mg Tablet PO 1 tab Q4H PRN Administration Moderate Pain (4-6) Al Hydrox/Mg Hydrox/Simethicone 20 ml 07/29/24 11:37 Mag Hydrox/Al Hydrox/Simeth 30 Ml Udc PO Q4H PRN Indigestion/Heartburn Aripiprazole 5 mg 07/30/24 09:00 07/30/24 09:13 Aripiprazole 5 Mg Tablet PO 5 mg QAM [facility] Administration Bisacodyl 10 mg 07/29/24 11:37 Bisacodyl 10 Mg Suppository RECTAL DAILY PRN Constipation Bupropion HCl 300 mg 07/30/24 09:00 07/30/24 09:05 Bupropion Hcl Xl (24 Hr) 150 Mg Tabcr BY MOUTH 300 mg DAILY [facility] Administration Calcium Carbonate 500 mg 07/30/24 09:00 07/30/24 09:06 Calcium Carbonate (Oscal) 500 Mg Tablet PO 500 mg DAILY [facility] Administration Docusate Sodium 100 mg 07/29/24 21:00 07/30/24 09:07 Docusate Sodium 100 Mg Capsule PO 100 mg Q12HR [facility] Administration Escitalopram Oxalate 20 mg 07/30/24 09:00 07/30/24 09:06 Escitalopram Oxalate 10 Mg Tablet PO 20 mg QAM [facility] Administration Flecainide Acetate 50 mg 07/29/24 21:00 07/30/24 09:07 Flecainide Acetate 50 Mg Tablet BY MOUTH 50 mg Q12HR [facility] Administration Furosemide 40 mg 07/30/24 09:00 07/30/24 09:06 Furosemide 40 Mg Tablet PO 40 mg QAM [facility] Administration Cefazolin Sodium 1 gm in 50 mls @ 100 mls/hr 07/29/24 16:00 07/30/24 15:06 Ancef 1 Gm/Ns 50 Ml IVPB 100 mls/hr Q8H [facility] Administration Potassium Chloride/Dextrose/Sod Cl 1,000 mls @ 100 mls/hr 07/29/24 11:37 07/30/24 00:41 Kcl 20 Meq/D5/0.45% Sod Chl IV CONT Not Given .Q10H [facility] Lisinopril 40 mg 07/30/24 09:00 07/30/24 10:21 Lisinopril 20 Mg Tablet PO Not Given QAM [facility] Loratadine 10 mg 07/29/24 11:53 Loratadine 10 Mg Tablet PO DAILY PRN Allergy Symptoms Methocarbamol 750 mg 07/29/24 11:37 Methocarbamol 750 Mg Tablet PO QID PRN Muscle Spasm Metoprolol Succinate 25 mg 07/30/24 09:00 07/30/24 09:06 Metoprolol Succinate Ext Rel 25 Mg Tabcr BY MOUTH 25 mg DAILY [facility] Administration Morphine Sulfate 2 mg 07/29/24 11:37 07/29/24 20:46 Morphine Sulfate (*Crx) 2 Mg/Ml Inj IV PUSH 2 mg Q2H PRN Administration Pain Rated 7-10 Ondansetron HCl 4 mg 07/29/24 11:37 07/30/24 12:36 Ondansetron Inj 4 Mg/2 Ml Vial IV PUSH 4 mg Q8H PRN Administration Nausea And Vomiting Pantoprazole Sodium 40 mg 07/30/24 09:00 07/30/24 09:08 Pantoprazole 40 Mg Tablet PO 40 mg QAM [facility] Administration Rosuvastatin Calcium 40 mg 07/30/24 09:00 07/30/24 09:05 Rosuvastatin 20 Mg Tablet PO 40 mg DAILY [facility] Administration Senna/Docusate Sodium 1 tab 07/29/24 11:37 Senna/Docusate Sodium Tablet PO HS PRN Constipation Vitamin D 5,000 units 07/30/24 09:00 07/30/24 09:05 Cholecalciferol 5,000 Units Tablet PO 5,000 units DAILY [facility] Administration Radiology Results: ITS Impressions Fluoroscopy 07/29/24 12:33 IMPRESSION: 1. Fluoroscopy utilized during extension to L2 of a combined instrumented L3-S1 anterior and posterior spinal fusion. See procedure note for further detail.
[2024-07-30] MEDS: MORPHINE SULFATE (*CRX) 2 MG/ML INJ IV PUSH (15:49)
[2024-07-31] VITALS (10 sets, daily range): BP systolic 90–119; BP diastolic 43–60; PULSE 57–77; RESP 16–18; TEMP 36.1; O2SAT 89–97
[2024-07-31] MEDS: HYDROcodone/acetaminophen (*CRX) 10-325 MG TABLET 1 TAB PO ×3 (04:05→12:36)
[2024-07-31] MEDS: methocarbamoL 750 MG TABLET PO (08:15)
[2024-07-31] MEDS: ceFAZolin 1 GM/NS 50 ML 1 GM/50 ML BAG IVPB ×3 (08:37→23:27)
[2024-07-31] MEDS: ARIPiprazole 5 MG TABLET PO (08:37)
[2024-07-31] MEDS: buPROPion HCL XL (24 HR) 150 MG TABCR 300 MG BY MOUTH (08:38)
[2024-07-31] MEDS: CHOLECALCIFEROL 5,000 UNITS TABLET 5000 UNITS PO (08:38)
[2024-07-31] MEDS: PANTOPRAZOLE 40 MG TABLET PO (08:38)
[2024-07-31] MEDS: DOCUSATE SODIUM 100 MG CAPSULE PO ×2 (08:38→20:32)
[2024-07-31] MEDS: ROSUVASTATIN 20 MG TABLET 40 MG PO (08:38)
[2024-07-31] MEDS: ESCITALOPRAM OXALATE 10 MG TABLET 20 MG PO (08:38)
[2024-07-31] MEDS: CALCIUM CARBONATE (OSCAL) 500 MG TABLET PO (08:38)
[2024-07-31] MEDS: lisinopriL 20 MG TABLET 40 MG PO (08:39)
[2024-07-31] MEDS: FLECAINIDE ACETATE 50 MG TABLET BY MOUTH ×2 (08:39→20:32)
[2024-07-31] MEDS: METOPROLOL SUCCINATE EXT REL 25 MG TABCR BY MOUTH (08:39)
[2024-07-31] MEDS: ACETAMINOPHEN 500 MG TABLET 1000 MG PO ×2 (10:17→16:00)
--- NOTE | 2024-07-31 19:51 | P.PNNEUSUR_ITS ---
Progress Note: A&P Assessment and Plan (1) Spinal stenosis, lumbar region without neurogenic claudication: Code(s): M48.061 - Spinal stenosis, lumbar region without neurogenic claudication Status: Acute Plan Ms. Arora is doing well status post L2-3 posterior lumbar interbody fusion. We will continue to work with physical and occupational therapy. If she can be made independently ambulatory and making transfers and she could be discharged home, potentially with home health physical therapy. If not we will consider rehab. Subjective Date/time seen: 07/31/24 19:51 Interval history: Ms. Arora is postop day 2 status post L2-3 posterior lumbar interbody fusion. She is doing well. She has had no mental status issues. She is working with physical and occupational therapy and has been ambulatory out of bed is not making transfers independently quite yet. She is not having any and new issues in her lower extremities. She complains of some pain radiating towards left hip. Exam Narrative: Strength is normal the bilateral lower extremities Sensation is intact light touch in lower extremities Her wound is clean, dry and intact. Objective Data Vital Signs Vital Signs: Vital Signs - 24 hr 07/30/24 20:00 07/30/24 20:59 07/30/24 22:00 Temperature 96.9 F L Pulse Rate 68 73 Respiratory Rate 18 Blood Pressure 105/59 L Pulse Oximetry 94 Oxygen Delivery Room Air Oxygen Flow Rate 07/31/24 06:22 07/31/24 08:00 07/31/24 08:39 Temperature 96.9 F L Pulse Rate 74 77 Respiratory Rate 18 Blood Pressure 119/43 L Pulse Oximetry 96 96 Oxygen Delivery Room Air Oxygen Flow Rate 07/31/24 08:39 07/31/24 13:49 07/31/24 14:24 Temperature Pulse Rate 77 74 Respiratory Rate 16 Blood Pressure 90/48 L 92/60 L Pulse Oximetry 90 Oxygen Delivery Oxygen Flow Rate 07/31/24 16:00 07/31/24 16:10 07/31/24 16:12 Temperature Pulse Rate Respiratory Rate Blood Pressure 90/58 L Pulse Oximetry 89 L 96 Oxygen Delivery Room Air Nasal Cannula Oxygen Flow Rate 2 Intake/Output Intake/Output: Intake & Output 07/28/24 07/29/24 07/30/24 07/31/24 23:59 23:59 23:59 23:59 Intake Total 390 510 770 Output Total 420 840 70 Balance -30 -330 700 Meds/Results Medications: Active Medications Generic Name Dose Route Start Last Admin Trade Name Freq PRN Reason Stop Dose Admin Acetaminophen 1,000 mg 07/29/24 11:37 07/31/24 16:00 Acetaminophen 500 Mg Tablet PO 1,000 mg Q6H PRN Administration Pain Hydrocodone Bitart/Acetaminophen 1 tab 07/29/24 11:37 Hydrocodone/Acetaminophen (*Crx) 5-325 Mg Tablet PO Q4H PRN Mild Pain (1-3) Hydrocodone Bitart/Acetaminophen 1 tab 07/29/24 11:37 07/31/24 12:36 Hydrocodone/Acetaminophen (*Crx) 10-325 Mg Tablet PO 1 tab Q4H PRN Administration Moderate Pain (4-6) Al Hydrox/Mg Hydrox/Simethicone 20 ml 07/29/24 11:37 Mag Hydrox/Al Hydrox/Simeth 30 Ml Udc PO Q4H PRN Indigestion/Heartburn Aripiprazole 5 mg 07/30/24 09:00 07/31/24 08:37 Aripiprazole 5 Mg Tablet PO 5 mg QAM [facility] Administration Bisacodyl 10 mg 07/29/24 11:37 Bisacodyl 10 Mg Suppository RECTAL DAILY PRN Constipation Bupropion HCl 300 mg 07/30/24 09:00 07/31/24 08:38 Bupropion Hcl Xl (24 Hr) 150 Mg Tabcr BY MOUTH 300 mg DAILY [facility] Administration Calcium Carbonate 500 mg 07/30/24 09:00 07/31/24 08:38 Calcium Carbonate (Oscal) 500 Mg Tablet PO 500 mg DAILY [facility] Administration Docusate Sodium 100 mg 07/29/24 21:00 07/31/24 08:38 Docusate Sodium 100 Mg Capsule PO 100 mg Q12HR [facility] Administration Escitalopram Oxalate 20 mg 07/30/24 09:00 07/31/24 08:38 Escitalopram Oxalate 10 Mg Tablet PO 20 mg QAM [facility] Administration Flecainide Acetate 50 mg 07/29/24 21:00 07/31/24 08:39 Flecainide Acetate 50 Mg Tablet BY MOUTH 50 mg Q12HR [facility] Administration Furosemide 40 mg 07/30/24 09:00 07/31/24 08:38 Furosemide 40 Mg Tablet PO Not Given QAM [facility] Cefazolin Sodium 1 gm in 50 mls @ 100 mls/hr 07/29/24 16:00 07/31/24 16:24 Ancef 1 Gm/Ns 50 Ml IVPB 100 mls/hr Q8H [facility] Administration Potassium Chloride/Dextrose/Sod Cl 1,000 mls @ 100 mls/hr 07/29/24 11:37 07/30/24 00:41 Kcl 20 Meq/D5/0.45% Sod Chl IV CONT Not Given .Q10H [facility] Lisinopril 40 mg 07/30/24 09:00 07/31/24 08:39 Lisinopril 20 Mg Tablet PO 40 mg QAM [facility] Administration Loratadine 10 mg 07/29/24 11:53 Loratadine 10 Mg Tablet PO DAILY PRN Allergy Symptoms Methocarbamol 750 mg 07/29/24 11:37 07/31/24 08:15 Methocarbamol 750 Mg Tablet PO 750 mg QID PRN Administration Muscle Spasm Metoprolol Succinate 25 mg 07/30/24 09:00 07/31/24 08:39 Metoprolol Succinate Ext Rel 25 Mg Tabcr BY MOUTH 25 mg DAILY [facility] Administration Morphine Sulfate 2 mg 07/29/24 11:37 07/30/24 15:49 Morphine Sulfate (*Crx) 2 Mg/Ml Inj IV PUSH 2 mg Q2H PRN Administration Pain Rated 7-10 Ondansetron HCl 4 mg 07/29/24 11:37 07/30/24 12:36 Ondansetron Inj 4 Mg/2 Ml Vial IV PUSH 4 mg Q8H PRN Administration Nausea And Vomiting Pantoprazole Sodium 40 mg 07/30/24 09:00 07/31/24 08:38 Pantoprazole 40 Mg Tablet PO 40 mg QAM [facility] Administration Rosuvastatin Calcium 40 mg 07/30/24 09:00 07/31/24 08:38 Rosuvastatin 20 Mg Tablet PO 40 mg DAILY [facility] Administration Senna/Docusate Sodium 1 tab 07/29/24 11:37 Senna/Docusate Sodium Tablet PO HS PRN Constipation Vitamin D 5,000 units 07/30/24 09:00 07/31/24 08:38 Cholecalciferol 5,000 Units Tablet PO 5,000 units DAILY [facility] Administration Radiology Results: ITS Impressions Fluoroscopy 07/29/24 12:33 IMPRESSION: 1. Fluoroscopy utilized during extension to L2 of a combined instrumented L3-S1 anterior and posterior spinal fusion. See procedure note for further detail.
[2024-08-01] VITALS (8 sets, daily range): BP systolic 103–118; BP diastolic 41–60; PULSE 61–68; RESP 18–20; TEMP 35.9–36.6; O2SAT 94–98
[2024-08-01] MEDS: HYDROcodone/acetaminophen (*CRX) 10-325 MG TABLET 1 TAB PO ×4 (03:43→20:47)
[2024-08-01] MEDS: methocarbamoL 750 MG TABLET PO ×3 (05:54→16:02)
[2024-08-01] MEDS: ceFAZolin 1 GM/NS 50 ML 1 GM/50 ML BAG IVPB (08:54)
[2024-08-01] MEDS: PANTOPRAZOLE 40 MG TABLET PO (08:55)
[2024-08-01] MEDS: METOPROLOL SUCCINATE EXT REL 25 MG TABCR BY MOUTH (08:55)
[2024-08-01] MEDS: FLECAINIDE ACETATE 50 MG TABLET BY MOUTH ×2 (08:55→20:45)
[2024-08-01] MEDS: CHOLECALCIFEROL 5,000 UNITS TABLET 5000 UNITS PO (08:55)
[2024-08-01] MEDS: ARIPiprazole 5 MG TABLET PO (08:55)
[2024-08-01] MEDS: DOCUSATE SODIUM 100 MG CAPSULE PO ×2 (08:56→20:45)
[2024-08-01] MEDS: CALCIUM CARBONATE (OSCAL) 500 MG TABLET PO (08:56)
[2024-08-01] MEDS: ESCITALOPRAM OXALATE 10 MG TABLET 20 MG PO (08:56)
[2024-08-01] MEDS: ROSUVASTATIN 20 MG TABLET 40 MG PO (08:56)
[2024-08-01] MEDS: buPROPion HCL XL (24 HR) 150 MG TABCR 300 MG BY MOUTH (08:56)
--- NOTE | 2024-08-01 10:35 | WPDNEUROSGPN ---
Progress Note: A&P Assessment and Plan (1) Spinal stenosis, lumbar region without neurogenic claudication: Code(s): M48.061 - Spinal stenosis, lumbar region without neurogenic claudication Status: Acute Assessment and Plan: 73 yo F s/p lumbar decompression/fusion POD 3 with some persistent back pain and hip/leg pain. I believe starting her on gabapentin will aid with some of her symptoms. Drain can be removed. PT/OT. She may need atleast another 24 hours of pain control within the hospital prior to discharge. Subjective Date/time seen: 08/01/24 10:35 Interval history: The patient is still having low back pain and also pain down her right hip. She has not tried gabapentin. She has mobilized with PT. Exam Neuro: Other: Awake alert no acute distress MAEW 08/04 including IP/Q/H/PF/DF/EHL inc c/d/i drain with minimal output Objective Data Vital Signs Vital Signs: Vital Signs - 24 hr 07/31/24 13:49 07/31/24 14:24 07/31/24 16:00 Temperature Pulse Rate 74 Respiratory Rate 16 Blood Pressure 90/48 L 92/60 L Pulse Oximetry 90 89 L Oxygen Delivery Room Air Oxygen Flow Rate 07/31/24 16:10 07/31/24 16:12 07/31/24 20:00 Temperature Pulse Rate Respiratory Rate Blood Pressure 90/58 L Pulse Oximetry 96 Oxygen Delivery Nasal Cannula Room Air Oxygen Flow Rate 2 07/31/24 20:32 07/31/24 21:15 08/01/24 05:26 Temperature 96.9 F L 97.3 F L Pulse Rate 64 57 L 65 Respiratory Rate 18 18 Blood Pressure 100/56 L 116/51 L Pulse Oximetry 97 98 Oxygen Delivery Oxygen Flow Rate 08/01/24 08:55 08/01/24 08:55 Temperature Pulse Rate 65 68 Respiratory Rate Blood Pressure Pulse Oximetry Oxygen Delivery Oxygen Flow Rate Intake/Output Intake/Output: Intake & Output 07/29/24 07/30/24 07/31/24 08/01/24 23:59 23:59 23:59 23:59 Intake Total 390 510 870 530 Output Total 420 840 70 30 Balance -30 -330 800 500 Meds/Results Medications: Active Medications Generic Name Dose Route Start Last Admin Trade Name Freq PRN Reason Stop Dose Admin Acetaminophen 1,000 mg 07/29/24 11:37 07/31/24 16:00 Acetaminophen 500 Mg Tablet PO 1,000 mg Q6H PRN Administration Pain Hydrocodone Bitart/Acetaminophen 1 tab 07/29/24 11:37 Hydrocodone/Acetaminophen (*Crx) 5-325 Mg Tablet PO Q4H PRN Mild Pain (1-3) Hydrocodone Bitart/Acetaminophen 1 tab 07/29/24 11:37 08/01/24 08:55 Hydrocodone/Acetaminophen (*Crx) 10-325 Mg Tablet PO 1 tab Q4H PRN Administration Moderate Pain (4-6) Al Hydrox/Mg Hydrox/Simethicone 20 ml 07/29/24 11:37 Mag Hydrox/Al Hydrox/Simeth 30 Ml Udc PO Q4H PRN Indigestion/Heartburn Aripiprazole 5 mg 07/30/24 09:00 08/01/24 08:55 Aripiprazole 5 Mg Tablet PO 5 mg QAM [facility] Administration Bisacodyl 10 mg 07/29/24 11:37 Bisacodyl 10 Mg Suppository RECTAL DAILY PRN Constipation Bupropion HCl 300 mg 07/30/24 09:00 08/01/24 08:56 Bupropion Hcl Xl (24 Hr) 150 Mg Tabcr BY MOUTH 300 mg DAILY [facility] Administration Calcium Carbonate 500 mg 07/30/24 09:00 08/01/24 08:56 Calcium Carbonate (Oscal) 500 Mg Tablet PO 500 mg DAILY [facility] Administration Docusate Sodium 100 mg 07/29/24 21:00 08/01/24 08:56 Docusate Sodium 100 Mg Capsule PO 100 mg Q12HR [facility] Administration Escitalopram Oxalate 20 mg 07/30/24 09:00 08/01/24 08:56 Escitalopram Oxalate 10 Mg Tablet PO 20 mg QAM [facility] Administration Flecainide Acetate 50 mg 07/29/24 21:00 08/01/24 08:55 Flecainide Acetate 50 Mg Tablet BY MOUTH 50 mg Q12HR [facility] Administration Furosemide 40 mg 07/30/24 09:00 08/01/24 10:13 Furosemide 40 Mg Tablet PO Not Given QAM [facility] Gabapentin 300 mg 08/01/24 21:00 Gabapentin 300 Mg Capsule PO HS [facility] Cefazolin Sodium 1 gm in 50 mls @ 100 mls/hr 07/29/24 16:00 08/01/24 09:24 Ancef 1 Gm/Ns 50 Ml IVPB Infused Q8H [facility] Infusion Potassium Chloride/Dextrose/Sod Cl 1,000 mls @ 100 mls/hr 07/29/24 11:37 07/30/24 00:41 Kcl 20 Meq/D5/0.45% Sod Chl IV CONT Not Given .Q10H [facility] Lisinopril 40 mg 07/30/24 09:00 08/01/24 10:13 Lisinopril 20 Mg Tablet PO Not Given QAM [facility] Loratadine 10 mg 07/29/24 11:53 Loratadine 10 Mg Tablet PO DAILY PRN Allergy Symptoms Methocarbamol 750 mg 07/29/24 11:37 08/01/24 05:54 Methocarbamol 750 Mg Tablet PO 750 mg QID PRN Administration Muscle Spasm Metoprolol Succinate 25 mg 07/30/24 09:00 08/01/24 08:55 Metoprolol Succinate Ext Rel 25 Mg Tabcr BY MOUTH 25 mg DAILY [facility] Administration Morphine Sulfate 2 mg 07/29/24 11:37 07/30/24 15:49 Morphine Sulfate (*Crx) 2 Mg/Ml Inj IV PUSH 2 mg Q2H PRN Administration Pain Rated 7-10 Ondansetron HCl 4 mg 07/29/24 11:37 07/30/24 12:36 Ondansetron Inj 4 Mg/2 Ml Vial IV PUSH 4 mg Q8H PRN Administration Nausea And Vomiting Pantoprazole Sodium 40 mg 07/30/24 09:00 08/01/24 08:55 Pantoprazole 40 Mg Tablet PO 40 mg QAM [facility] Administration Rosuvastatin Calcium 40 mg 07/30/24 09:00 08/01/24 08:56 Rosuvastatin 20 Mg Tablet PO 40 mg DAILY [facility] Administration Senna/Docusate Sodium 1 tab 07/29/24 11:37 Senna/Docusate Sodium Tablet PO HS PRN Constipation Vitamin D 5,000 units 07/30/24 09:00 08/01/24 08:55 Cholecalciferol 5,000 Units Tablet PO 5,000 units DAILY [facility] Administration Radiology Results: ITS Impressions Fluoroscopy 07/29/24 12:33 IMPRESSION: 1. Fluoroscopy utilized during extension to L2 of a combined instrumented L3-S1 anterior and posterior spinal fusion. See procedure note for further detail.
[2024-08-01] MEDS: GABAPENTIN 300 MG CAPSULE PO (20:45)
[2024-08-02] MEDS: HYDROcodone/acetaminophen (*CRX) 10-325 MG TABLET 1 TAB PO (03:55)
[2024-08-02 05:25] VITALS: BP 108/54; PULSE 65; RESP 20; TEMP 36.6; O2SAT 96
[2024-08-02 08:28] VITALS: BP 147/74; PULSE 66
[2024-08-02 08:29] VITALS: PULSE 66
[2024-08-02] MEDS: DOCUSATE SODIUM 100 MG CAPSULE PO (08:29)
[2024-08-02] MEDS: PANTOPRAZOLE 40 MG TABLET PO (08:29)
[2024-08-02] MEDS: CALCIUM CARBONATE (OSCAL) 500 MG TABLET PO (08:29)
[2024-08-02] MEDS: FLECAINIDE ACETATE 50 MG TABLET BY MOUTH (08:29)
[2024-08-02] MEDS: CHOLECALCIFEROL 5,000 UNITS TABLET 5000 UNITS PO (08:29)
[2024-08-02] MEDS: ESCITALOPRAM OXALATE 10 MG TABLET 20 MG PO (08:30)
[2024-08-02] MEDS: HYDROcodone/acetaminophen (*CRX) 5-325 MG TABLET 1 TAB PO ×3 (08:30→17:31)
[2024-08-02] MEDS: buPROPion HCL XL (24 HR) 150 MG TABCR 300 MG BY MOUTH (08:30)
[2024-08-02] MEDS: ROSUVASTATIN 20 MG TABLET 40 MG PO (08:30)
[2024-08-02 08:32] VITALS: PULSE 66
[2024-08-02] MEDS: METOPROLOL SUCCINATE EXT REL 25 MG TABCR BY MOUTH (08:32)
[2024-08-02] MEDS: ARIPiprazole 5 MG TABLET PO (08:35)
[2024-08-02 14:00] VITALS: BP 112/58; PULSE 64; RESP 18; TEMP 36.9; O2SAT 97
--- NOTE | 2024-08-10 10:51 | P.DS_ITS ---
DS: Admitting Diagnosis Discharge Date 08/02/24 Admitting Diagnosis Junctional lumbar stenosis, L2-3 DS: Discharge Diagnosis Discharge Diagnosis (1) Lumbar stenosis with neurogenic claudication: Code(s): M48.062 - Spinal stenosis, lumbar region with neurogenic claudication Status: Acute DS: Summary Hospital Course Hospital Course: The patient was taken the operating room on 07/29 24 with the aforementioned operation was performed without complication. The patient went to the floor postoperatively. Physical and occupational therapy were involved in her care. A Puente catheter and drain removed by postoperative day 2. By postoperative day 3 she was eating, ambulating, emptying her bladder pain was under control with by mouth pain medicine. Her wound remained clean, dry and intact. She was afebrile with stable vital signs. She was therefore allowed to be discharged home. Status at Discharge Functional status at discharge: independent ambulation Time Spent with Patient Time attestation: Total time spent providing and/or coordinating discharge services: Discharge Plan Discharge Attending physician on discharge: Stalin Najera Consulting providers: Bull Casillas; Navdeep Horton; Chelsea Roy; Marv Scott; Og Sanchez Discharging Clinician: Stalin Najera Patient Disposition: Home with Home Health Service Activity: july shower Diet: as tolerated Wound Care Instructions: follow printed instructions Discharge Instructions: Per Care Coordination. Patient to have [facility] for RN/PT/OT eval and treat [phone]. Home Health with contact patient to schedule first visit. Patient Instructions: Antibiotic Form, Narcotic Safety (GEN), Lumbar Spinal Fusion (GEN) Patient Language: Azeri Stand Alone Forms: General Discharge Information Follow-up/Referrals: Stalin Najera MD [Physician] - Discharge Medications: New hydrocodone-acetaminophen 5-325 mg tablet 1 - 2 tablet PO Q4H PRN (Reason: pain) Qty: 40 0RF gabapentin 300 mg capsule 300 mg PO HS Qty: 30 0RF Continued cholecalciferol (vitamin D3) 125 mcg (5,000 unit) capsule 125 mcg PO DAILY fexofenadine [Scarlett Allergy] 60 mg tablet 60 mg PO Q12H PRN (Reason: Allergy Symptoms) calcium carbonate 500 mg calcium (1,250 mg) tablet 500 mg PO DAILY Qty: 90 1RF flecainide 50 mg tablet See Rx Instructions .ROUTE .COMPLEX Qty: 180 2RF Dose Instruction: TAKE 1 TABLET BY MOUTH EVERY 12 HOURS Rx Instructions: TAKE 1 TABLET BY MOUTH EVERY 12 HOURS rosuvastatin 40 mg tablet 40 mg PO DAILY Qty: 90 1RF aripiprazole 5 mg tablet 5 mg PO QAM Qty: 90 0RF escitalopram oxalate 20 mg tablet 20 mg PO QAM Qty: 90 1RF Rx Instructions: TAKE 1 TABLET BY MOUTH EVERY DAY furosemide 40 mg tablet 40 mg PO QAM Qty: 90 1RF acetaminophen 500 mg capsule 1,000 mg PO Q6H PRN (Reason: Pain) Qty: 60 5RF metoprolol succinate 25 mg tablet extended release 24 hr See Rx Instructions .ROUTE .COMPLEX Qty: 90 2RF Dose Instruction: TAKE 1 TABLET BY MOUTH EVERY DAY Patient Comments: QAM Rx Instructions: TAKE 1 TABLET BY MOUTH EVERY DAY bupropion HCl 300 mg tablet extended release 24 hr See Rx Instructions .ROUTE .COMPLEX Qty: 90 1RF Dose Instruction: TAKE 1 TABLET BY MOUTH EVERY MORNING Rx Instructions: TAKE 1 TABLET BY MOUTH EVERY MORNING lisinopril 40 mg tablet 40 mg PO QAM Qty: 90 1RF omeprazole 20 mg capsule,delayed release(DR/EC) 20 mg PO QAM Qty: 30 5RF Rx Instructions: TAKE 1 CAPSULE BY MOUTH EVERY DAY Held Eliquis 5 mg tablet 5 mg PO BID Qty: 60 5RF Hold Instructions: Resume on 08/09/24. Date of admission: 07/29/24 11:37 Primary Care Provider: Tra Sanchez Admitting Provider: Stalin Najera Attending physician on admission: Stalin Najera Condition: Improved
== END 2024-08-02 18:25 | disposition home health service (06) | DRG 451 ==
LOC: ANH3MEDSUR 12:31
PROVIDERS: Admitting Provider Neurological Surgery; PCP Internal Medicine; Visit Provider Neurological Surgery
PROC: 0SG00AJ Fusion of Lumbar Vertebral Joint with Interbody Fusion Device, Posterior Approach, Anterior Column, Open Approach (ICD-10-PCS; CPT 22612; principal; 2024-07-29 07:30)
DX: M48.061 Spinal stenosis, lumbar region without neurogenic claudication (principal); M43.16 Spondylolisthesis, lumbar region; I48.0 Paroxysmal atrial fibrillation; K21.9 Gastro-esophageal reflux disease without esophagitis; G47.33 Obstructive sleep apnea (adult) (pediatric); I10 Essential (primary) hypertension; E78.00 Pure hypercholesterolemia, unspecified; N39.3 Stress incontinence (female) (male); Z79.01 Long term (current) use of anticoagulants; Z90.710 Acquired absence of both cervix and uterus; Z87.891 Personal history of nicotine dependence; Z96.82 Presence of neurostimulator
CPT/HCPCS: 97116; 97161; 97166; 97530; 97535; 99199; A9270; C1713; J0690; J1171; J2003; J2004; J2250; J2270; J2371; J2405; J2704; J3010; J7120

== ENCOUNTER 2024-09-15 09:27 | Outpatient (CLI) | payer OTHER, SELFPAY ==
--- NOTE | ~2024-09-15 | XR_ITS ---
3 VIEWS LUMBAR SPINE Ordering provider: Stalin Najera MD History: . 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 . Comparison: October 16, 2022 FINDINGS: VERTEBRAL BODIES:Postoperative changes in the lumbar area with addition of a level to the surgery are a. Otherwise, No visible fracture or subluxation. Degenerative changes of the spine. DISK SPACES: Narrowing of the disc L1-L2. Disc spacers are seen at the levels from L2 to L3 down to L 5-S1. SOFT TISSUES: Atherosclerotic changes of the aorta. Stimulator is seen in the right buttock area. IMPRESSION: No acute osseous abnormality lumbar spine. Postoperative changes. Reviewed, dictated and finalized at location A.
--- OUTSIDE RECORDS SUMMARY | 2024-09-15 10:03 | XMS_ITS | Clinical Summary ---
Author Organization [facility] Address [address] [facility] [address] [facility] [address] [place] [address] Care Team Providers Care Printed Circuit Boards Plasma Etcher Name Role Phone Tra Sanchez DO Primary Care Provider [phone] Allergies No known active allergies Medications raNITIdine [...] often do you attend chur ch or episcopalian services? Never 09/04/2018 Do you belong to any clubs o r organizations such as latter day groups, unions, fraternal or athletic groups, or [...] 4:18 AM CDT Height 157.5 cm (5' 2) 09/04/2018 6:39 AM CDT Body Mass Index [...] series) 08/28/2026 Medical Devices Implanted Type Area Risk Advisor Device Identifier Shelf Expiration Date Model / Serial / Lot Cage 7-13, 10x22 Implanted:Qty: 1 on 09/04/2018 by Jaime Vee MD at [facility] N/A: Spine Lumbar [employer] 193.101 / / Description:ENTERED BY RN [id number] Cage 7-13, 8x22 Implanted:Qty: 1 on 09/04/2018 by Jaime Vee MD at [facility] N/A: Spine Lumbar [employer] 193.001 / / Description:ENTERED BY RN [id number] Hemostatic Surgifoam 1gm 1977 Sn/A Implanted:Qty: 1 on 09/04/2018 by Jaime Vee MD at [facility] Hemostatic N/A: Spine Lumbar J&J- [employer] 06/17/20201977 / N/A / [id number] Description:REQ#[id number] REQ#[id number] Francisco Cdh Spn Ccm Cap 4.72p82pn [id number] - Ssterilized On 08/22/2018 Implanted:Qty: 2 on 09/04/2018 by Jaime Vee MD at [facility] Francisco N/A: Spine Lumbar [employer]- SOFAMOR DANEK [id number] / STERILIZED ON 08/22/2018 / LOAD #[id number] Screw Solera Karen Ma 4.90a89gw [id number] - Ssterilized On 08/22/2018 Implanted:Qty: 1 on 09/04/2018 by Jaime Vee MD at [facility] Screw N/A: Spine Lumbar [employer]- SOFAMOR DANEK [id number] / STERILIZED ON 08/22/2018 / LOAD #[id number] Screw Solera Karen Ma 4.75o38re [id number] - Ssterilized On 08/22/2018 Implanted:Qty: 1 on 09/04/2018 by Jaime Vee MD at [facility] N/A: Spine Lumbar [employer]- SOFAMOR DANEK [id number] / STERILIZED ON 08/22/2018 / LOAD #[id number] Screw Solera Karen Ma [id number] - Ssterilized On 08/22/2018 Implanted:Qty: 2 on 09/04/2018 by Jaime Vee MD at [facility] N/A: Spine Lumbar [employer]- SOFAMOR DANEK [id number] / STERILIZED ON 08/22/2018 / LOAD #[id number] Set Screw Solera Perc 4.75mm [id number] - Ssterilized On 08/22/2018 Implanted:Qty: 5 on 09/04/2018 by Jaime Vee MD at [facility] N/A: Spine Lumbar [employer]- SOFAMOR DANEK [id number] / STERILIZED ON 08/22/2018 / LOAD #[id number] Screw Solera Karen Ma 7.5x30mm Implanted:Qty: 1 on 09/04/2018 by Jaime Vee MD at [facility] N/A: Spine Lumbar [employer] [id number] / STERILIZED ON 08/22/2018 / LOAD #[id number] Description:ENTERED BY KELSY [id number] Infuse Protein Kit [id number] - Sn/A Implanted:Qty: 1 on 09/04/2018 by Jaime Vee MD at [facility] Tissue N/A: Spine Lumbar [employer]- SOFAMOR DANEK 11/30/2020 [id number] / N/A / [id number] Insurance [address] [address] RX MEDIMPACT Member Subscriber Plan / Payer (Ef fective 2016-Present) Name:Sarika Arora Relation to Subscriber:Self Name:Sarika Arora Payer ID:Not on file Group ID:[id number] Type:RX Medicare Part D Address: [address] RX LIRA PLANS (INTERNAL) [facility] Plans Advance Directives For more information, please contact: [phone] * Full Code (Latest Code Status on File) Date Activated Date Inactivated Comments 09/04/2018 3:26 PM 09/07/2018 4:57 PM Care Teams Printed Circuit Boards Plasma Etcher Relationship Specialty Start Date End Date Tra Sanchez DO PCP - General Internal Medicine 07/25/18
--- OUTSIDE RECORDS SUMMARY | 2024-09-15 10:03 | XMS_ITS | Clinical Summary ---
Author Organization [facility] Address [address] [place] [address] Phone Care Team Providers Care Recreation Professor Name Role Phone Tra Sanchez DO Primary Care Provider [phone] Allergies No known active allergies Medications cholecalciferol [...] Comments Blood Pressure 118/70 04/07/2020 9:20 AM INBOUND SALES REPRESENTATIVE Pulse 60 04/07/2020 9:20 AM INBOUND SALES REPRESENTATIVE Temperature 34.8 C (94.7 F) 04/07/2020 9:20 AM INBOUND SALES REPRESENTATIVE Respiratory Rate - - Oxygen Saturation - - Inhaled Oxygen Concentration - - Weight 89.4 kg (197 lb) 04/07/2020 9:20 AM INBOUND SALES REPRESENTATIVE Height 154.9 cm (5' 1) 04/07/2020 9:20 AM INBOUND SALES REPRESENTATIVE Body Mass Index 37.22 04/07/2020 9:20 AM INBOUND SALES REPRESENTATIVE Plan of Treatment Health Maintenance Due Date Last Done Comments Pneumococcal PPSV23/PCV13 65 + Years / Low and Medium Risk (2 of 3 - PPSV23) 01/28/2021 01/29/2020 Influenza Vaccine (Season Ended) 2024 Insurance [employer] HMO Care Teams Recreation Professor Relationship Specialty Start Date End Date Tra Sanchez DO [address] [place] [address] PCP - General Internal Medicine 11/20/19
== END 2024-09-15 09:28 | disposition home or self-care (01) ==
PROVIDERS: PCP Nurse Practitioner; Visit Provider Neurological Surgery
DX: M48.061 Spinal stenosis, lumbar region without neurogenic claudication (principal); Z98.890 Other specified postprocedural states
CPT/HCPCS: 72100

== ENCOUNTER 2024-10-22 10:04 | Outpatient (CLI) | payer OTHER, SELFPAY ==
--- OUTSIDE RECORDS SUMMARY | 2024-10-22 10:13 | XMS_ITS | Clinical Summary ---
Author Organization [facility] Address [address] [facility] [address] [place] [address] Care Team Providers Care Volleyball Assembler Name Role Phone Tra Sanchez DO Primary Care Provider [phone] Allergies No known active allergies Medications raNITIdine [...] 0.6 oz pur e alcohol) rare Comments No Sex and Gender Information Value [...] 08/28/2001 OSTEOPOROSIS SCREENING 08/28/2016 INFLUENZA VACCINE (#1) 2024 RSV VACCINE (60+ or ) (1 - 1-dose 75+ series) 08/28/2026 Medical Devices Implanted Type Area Typing Element Machine Operator Device Identifier Shelf Expiration Date Model / Serial / Lot Cage 7-13, 10x22 Implanted:Qty: 1 on 09/04/2018 by Jaime Vee MD at [facility] Cage N/A: Spine Lumbar [employer] 193.101 / / Description:ENTERED BY KELSY [id number] Cage 7-13, 8x22 Implanted:Qty: 1 on 09/04/2018 by Jaime Vee MD at [facility] N/A: Spine Lumbar [employer] 193.001 / / Description:ENTERED BY KELSY [id number] Hemostatic Surgifoam 1gm 1977 - Sn/A Implanted:Qty: 1 on 09/04/2018 by Jaime Vee MD at [facility] Hemostatic N/A: Spine Lumbar [employer]J- [employer] 06/17/20201977 / N/A / [id number] Description:REQ#[id number] REQ#[id number] Francisco Cdh Spn Ccm Cap 4.39t46co [id number] - Ssterilized On 08/22/2018 Implanted:Qty: 2 on 09/04/2018 by Jaime Vee MD at [facility] Francisco N/A: Spine Lumbar [employer]- SOFAMOR DANEK [id number] / STERILIZED ON 08/22/2018 / LOAD #[id number] Screw Solera Karen Ma 4.59e13fe [id number] - Ssterilized On 08/22/2018 Implanted:Qty: 1 on 09/04/2018 by Jaime Vee MD at [facility] Screw N/A: Spine Lumbar [employer]- SOFAMOR DANEK [id number] / STERILIZED ON 08/22/2018 / LOAD #[id number] Screw Solera Karen Ma 4.40r21cs [id number] - Ssterilized On 08/22/2018 Implanted:Qty: 1 on 09/04/2018 by Jaime Vee MD at [facility] N/A: Spine Lumbar [employer]- SOFAMOR DANEK [id number] / STERILIZED ON 08/22/2018 / LOAD #[id number] Screw Solera Karen Ma 4.11v44md [id number] - Ssterilized On 08/22/2018 Implanted:Qty: 2 on 09/04/2018 by Jaime Vee MD at [facility] N/A: Spine Lumbar [employer]- SOFAMOR DANEK [id number] / STERILIZED ON 08/22/2018 / LOAD #[id number] Set Screw Solera Perc 4.75mm [id number] - Ssterilized On 08/22/2018 Implanted:Qty: 5 on 09/04/2018 by Jaime Vee MD at [facility] N/A: Spine Lumbar [employer]- SOFAMOR DANEK [id number] / STERILIZED ON 08/22/2018 / LOAD #[id number] Screw Solera Karen Ma 7.5x30mm Implanted:Qty: 1 on 09/04/2018 by Jaime Vee MD at [facility] N/A: Spine Lumbar [employer] [id number] / STERILIZED ON 08/22/2018 / LOAD #[id number] Description:ENTERED BY KELSY [id number] Infuse Protein Kit [id number] - Sn/A Implanted:Qty: 1 on 09/04/2018 by Jaime Vee MD at [facility] Tissue N/A: Spine Lumbar [employer]- SOFAMOR DANEK 11/30/2020 [id number] / N/A / [id number] Insurance RX MEDIMPACT Member Subscriber Plan / Payer (Ef fective 2016-Present) Name:Sarika Arora Relation to Subscriber:Self Name:Sarika Arora Payer ID:Not on file Group ID:[id number] Type:RX Medicare Part D Address: [address] [place] RX LIRA PLANS (INTERNAL) [facility] Plans Advance Directives For more information, please contact: [phone] * Full Code (Latest Code Status on File) Date Activated Date Inactivated Comments 09/04/2018 3:26 PM 09/07/2018 4:57 PM Care Teams Volleyball Assembler Relationship Specialty Start Date End Date Tra Sanchez DO PCP - General Internal Medicine 07/25/18
--- OUTSIDE RECORDS SUMMARY | 2024-10-22 10:13 | XMS_ITS | Clinical Summary ---
Author Organization [facility] Address [address] [place] [address] Phone Care Team Providers Care Outreach Associate Name Role Phone Tra Sanchez DO Primary Care Provider Allergies No known active allergies Medications cholecalciferol [...] Comments Blood Pressure 118/70 04/07/2020 9:20 AM DESKTOP ARCHITECT Pulse 60 04/07/2020 9:20 AM DESKTOP ARCHITECT Temperature 34.8 C (94.7 F) 04/07/2020 9:20 AM DESKTOP ARCHITECT Respiratory Rate - - Oxygen Saturation - - Inhaled Oxygen Concentration - - Weight 89.4 kg (197 lb) 04/07/2020 9:20 AM DESKTOP ARCHITECT Height 154.9 cm (5' 1) 04/07/2020 9:20 AM DESKTOP ARCHITECT Body Mass Index 37.22 04/07/2020 9:20 AM DESKTOP ARCHITECT Plan of Treatment Health Maintenance Due Date Last Done Comments Pneumococcal PPSV23/PCV13 65 + Years / Low and Medium Risk (2 of 3 - PCV20 or PCV21) 01/28/2021 01/29/2020 Influenza Vaccine (#1) 2024 Insurance [employer] HMO Care Teams Outreach Associate Relationship Specialty Start Date End Date Tra Sanchez DO [address] [place] [address] PCP - General Internal Medicine 11/20/19
[2024-10-22 10:42] LABS: Add Urine Microscopic? YES; Appearance Urine Cloudy (Clear); Glucose Urine UA Negative (Negative); Leukocyte Esterase Ur 2+ LEU/UL (Negative); Nitrate Urine Negative (Negative); Non Pathogenic Casts 0-2; Specific Grav Ur 1.027 (1.001-1.035)
== END 2024-10-22 10:05 | disposition home or self-care (01) ==
LOC: ANHLAB 10:07
PROVIDERS: PCP Nurse Practitioner; Visit Provider Nurse Practitioner
DX: R39.9 Unspecified symptoms and signs involving the genitourinary system (principal); R82.90 Unspecified abnormal findings in urine
CPT/HCPCS: 81001; 87086

== ENCOUNTER 2024-11-13 09:50 | Outpatient (CLI) | payer OTHER, SELFPAY ==
--- NOTE | ~2024-11-13 | XR_ITS ---
EXAM: XR shoulder RT min 2V DATE: 11/13/2024 10:10 HISTORY: M25.511 - Pain in right shoulder . COMPARISON: 06/28/2018. FINDINGS: Decreased mineralization. No fracture or dislocation. No lytic or blastic lesion. Moderate AC joint and glenohumeral joint degenerative change. Multiple loose bodies project over the glenohum eral joint and proximal biceps tendon sheath. Focal calcification in the cuff. No erosion or perioste al change. Spiculated pleural-based 11 mm pulmonary nodule. Degenerative changes in the thoracic spin e. IMPRESSION: Moderate polyarticular right shoulder osteoarthritis with multiple loose bodies. Calcific rotator cuf f tendinitis. 11 mm peripheral right upper lung pulmonary nodule, recommend low-dose noncontrast CT of the chest fo r further evaluation. Reviewed, dictated and finalized at location K. IMPRESSION: Moderate polyarticular right shoulder osteoarthritis with multiple loose bodies . Calcific rotator cuff tendinitis. 11 mm peripheral right upper lung pulmonary nodule, recommend low-dose noncontr ast CT of the chest for further evaluation.
--- OUTSIDE RECORDS SUMMARY | 2024-11-13 10:03 | XMS_ITS | Clinical Summary ---
Author Organization [facility] Address [address] [facility] [address] [place] [address] Care Team Providers Care Adjuster And Inspector Name Role Phone Tra Sanchez DO Primary Care Provider [phone] Allergies No known active allergies Medications raNITIdine [...] series) 08/28/2026 Medical Devices Implanted Type Area Corporate Security Manager Device Identifier Shelf Expiration Date Model / Serial / Lot Cage 7-13, 10x22 Implanted:Qty: 1 on 09/04/2018 by Jaime Vee MD at [facility] Cage N/A: Spine Lumbar [employer] 193.101 / / Description:ENTERED BY KELSY [id number] Cage 7-13, 8x22 Implanted:Qty: 1 on 09/04/2018 by Jaime Vee MD at [facility] N/A: Spine Lumbar [employer] 193.001 / / Description:ENTERED BY KELSY [id number] Hemostatic Surgifoam 1gm 1977 - Sn/A Implanted:Qty: 1 on 09/04/2018 by Jaime Vee MD at [facility] Hemostatic N/A: Spine Lumbar J[employer]J- [employer] 06/17/20201977 / N/A / [id number] Description:REQ#[id number] REQ#[id number] Francisco Cdh Spn Ccm Cap 4.12d63dx [id number] - Ssterilized On 08/22/2018 Implanted:Qty: 2 on 09/04/2018 by Jaime Vee MD at [facility] Francisco N/A: Spine Lumbar [employer]- SOFAMOR [employer]ANEK [id number] / STERILIZED ON 08/22/2018 / LOAD #[id number] Screw Solera Karen Ma 4.63f92xw [id number] - Ssterilized On 08/22/2018 Implanted:Qty: 1 on 09/04/2018 by Jaime Vee MD at [facility] Screw N/A: Spine Lumbar [employer]- SOFAMOR DANEK [id number] / STERILIZED ON 08/22/2018 / LOAD #[id number] Screw Solera Karen Ma 4.98w12ix [id number] - Ssterilized On 08/22/2018 Implanted:Qty: 1 on 09/04/2018 by Jaime Vee MD at [facility] N/A: Spine Lumbar [employer]- SOFAMOR DANEK [id number] / STERILIZED ON 08/22/2018 / LOAD #[id number] Screw Solera Karen Ma 4.16h18pa [id number] - Ssterilized On 08/22/2018 Implanted:Qty: 2 on 09/04/2018 by Jaime Vee MD at [facility] N/A: Spine Lumbar [employer]- SOFAMOR DANEK [id number] / STERILIZED ON 08/22/2018 / LOAD #[id number] Set Screw Solera Perc 4.75mm [id number] - Ssterilized On 08/22/2018 Implanted:Qty: 5 on 09/04/2018 by Jaime Vee MD at [facility] N/A: Spine Lumbar [employer]- SOFAMOR DANEK [id number] / STERILIZED ON 08/22/2018 / LOAD #[id number] Screw Solera Karen Ma 7.5x30mm Implanted:Qty: 1 on 09/04/2018 by Jaime Vee MD at [facility] N/A: Spine Lumbar [employer] [id number] / STERILIZED ON 08/22/2018 / LOAD #[id number] Description:ENTERED BY KELSY [id number] Infuse Protein Kit [id number] - Sn/A Implanted:Qty: 1 on 09/04/2018 by Jaime Vee MD at [facility] Tissue N/A: Spine Lumbar [employer]- SOFAMOR DANEK 11/30/2020 [id number] / N/A / [id number] Insurance RX MEDIMPACT Member Subscriber Plan / Payer (Ef fective 2016-Present) Name:Sarika Arora Relation to Subscriber:Self Name:Sarika Arora Payer ID:Not on file Group ID:[id number] Type:RX Medicare Part D Address: [address] [place] RX LIRA PLANS (INTERNAL) [facility] Plans Advance Directives For more information, please contact: [phone] * Full Code (Latest Code Status on File) Date Activated Date Inactivated Comments 09/04/2018 3:26 PM 09/07/2018 4:57 PM Care Teams Adjuster And Inspector Relationship Specialty Start Date End Date Tra Sanchez DO PCP - General Internal Medicine 07/25/18
--- OUTSIDE RECORDS SUMMARY | 2024-11-13 10:03 | XMS_ITS | Clinical Summary ---
Author Organization [facility] Address [address] [place] [address] Phone Care Team Providers Care Program Checker Name Role Phone Tra Sanchez DO Primary Care Provider [phone] Allergies No known active allergies Medications cholecalciferol [...] Comments Blood Pressure 118/70 04/07/2020 9:20 AM MEDICAL TRANSCRIPTION Pulse 60 04/07/2020 9:20 AM MEDICAL TRANSCRIPTION Temperature 34.8 C (94.7 F) 04/07/2020 9:20 AM MEDICAL TRANSCRIPTION Respiratory Rate - - Oxygen Saturation - - Inhaled Oxygen Concentration - - Weight 89.4 kg (197 lb) 04/07/2020 9:20 AM MEDICAL TRANSCRIPTION Height 154.9 cm (5' 1) 04/07/2020 9:20 AM MEDICAL TRANSCRIPTION Body Mass Index 37.22 04/07/2020 9:20 AM MEDICAL TRANSCRIPTION Plan of Treatment Health Maintenance Due Date Last Done Comments Pneumococcal PPSV23/PCV13 65 + Years / Low and Medium Risk (2 of 3 - PCV20 or PCV21) 01/28/2021 01/29/2020 Influenza Vaccine (#1) 2024 Insurance [employer] HMO Care Teams Program Checker Relationship Specialty Start Date End Date Tra Sanchez DO [address] [place] [address] PCP - General Internal Medicine 11/20/19
== END 2024-11-13 09:51 | disposition home or self-care (01) ==
PROVIDERS: PCP Nurse Practitioner; Visit Provider Nurse Practitioner
DX: M25.511 Pain in right shoulder (principal); G89.29 Other chronic pain; M19.011 Primary osteoarthritis, right shoulder; M24.011 Loose body in right shoulder; M75.31 Calcific tendinitis of right shoulder; R91.1 Solitary pulmonary nodule
CPT/HCPCS: 73030

== ENCOUNTER 2024-11-19 06:45 | Outpatient (CLI) | payer OTHER, SELFPAY ==
--- NOTE | ~2024-11-19 | CT_ITS ---
CT Scan of the Chest without Contrast: Clinical Indication: Pulmonary nodule Technique: Contiguous sections were acquired throughout the chest without intravenous contrast. Dose reduction technique was used on this scan by utilizing automated exposure control and iterative reconstruction technique. The dose-length product (DLP) was 192.72 mGy-cm. Findings: There is no evidence of any significant mediastinal, hilar or axillary lymphadenopathy. Calcified mediastinal lymph nodes are present. There are atherosclerotic calcifications of the aorta and coronary arteries. There is no evidence of pleural or pericardial effusion. Several scattered calcified granulomas are present. There is an 8 mm noncalcified left lower lobe pulmonary nodule (axial image 69). There are minimal chronic interstitial changes with focal peripheral bronchiectatic change at the posterior right lung base. There are probable 3 mm nodule at the right l london base posteriorly (axial image 60). Images through the upper abdomen reveal no abnormalities. Impression: 8 mm noncalcified left lower lobe pulmonary nodule. According to Fleischner Society criteria, for a low-risk patient, recommend follow-up CT scan in 6-12 months, then consider additional 18-[address] For a high-risk patient, follow-up CT scans at both 6-12 months and 18-24 months are recommended. Reviewed, dictated and finalized at location . Impression: 8 mm noncalcified left lower lobe pulmonary nodule. According to Fleischner Soc iety criteria, for a low-risk patient, recommend follow-up CT scan in 6-12 bebo hs, then consider additional 18-[address] For a high-risk patient, follow-up CT scans at both 6-12 months and 18-24 months are recommended.
--- OUTSIDE RECORDS SUMMARY | 2024-11-19 06:49 | XMS_ITS | Clinical Summary ---
Author Organization [facility] Address [address] [place] [address] Phone Care Team Providers Care Heel Seat Trimmer Name Role Phone Tra Sanchez DO Primary Care Provider [phone] Allergies No known active allergies Medications cholecalciferol [...] Comments Blood Pressure 118/70 04/07/2020 9:20 AM SECRETARY TO BOARD OF COMMISSIONERS Pulse 60 04/07/2020 9:20 AM SECRETARY TO BOARD OF COMMISSIONERS Temperature 34.8 C (94.7 F) 04/07/2020 9:20 AM SECRETARY TO BOARD OF COMMISSIONERS Respiratory Rate - - Oxygen Saturation - - Inhaled Oxygen Concentration - - Weight 89.4 kg (197 lb) 04/07/2020 9:20 AM SECRETARY TO BOARD OF COMMISSIONERS Height 154.9 cm (5' 1) 04/07/2020 9:20 AM SECRETARY TO BOARD OF COMMISSIONERS Body Mass Index 37.22 04/07/2020 9:20 AM SECRETARY TO BOARD OF COMMISSIONERS Plan of Treatment Health Maintenance Due Date Last Done Comments Pneumococcal PPSV23/PCV13 65 + Years / Low and Medium Risk (2 of 3 - PCV20 or PCV21) 01/28/2021 01/29/2020 Influenza Vaccine (#1) 2024 Insurance [employer] HMO Care Teams Heel Seat Trimmer Relationship Specialty Start Date End Date Tra Sanchez DO [address] [place] [address] PCP - General Internal Medicine 11/20/19
== END 2024-11-19 06:46 | disposition home or self-care (01) ==
PROVIDERS: PCP Nurse Practitioner; Visit Provider Nurse Practitioner
DX: R91.1 Solitary pulmonary nodule (principal)
CPT/HCPCS: 71250

== ENCOUNTER 2024-12-15 07:59 | Outpatient (CLI) | payer OTHER, SELFPAY ==
--- OUTSIDE RECORDS SUMMARY | 2024-12-15 08:24 | XMS_ITS | Clinical Summary ---
Author Organization [facility] Address [address] [place] [address] Phone Care Team Providers Care Laser Machine Operator Name Role Phone Tra Sanchez DO Primary Care Provider [phone] Allergies No known active allergies Medications cholecalciferol [...] Comments Blood Pressure 118/70 04/07/2020 9:20 AM ELECTRONICS DEPARTMENT MANAGER Pulse 60 04/07/2020 9:20 AM ELECTRONICS DEPARTMENT MANAGER Temperature 34.8 C (94.7 F) 04/07/2020 9:20 AM ELECTRONICS DEPARTMENT MANAGER Respiratory Rate - - Oxygen Saturation - - Inhaled Oxygen Concentration - - Weight 89.4 kg (197 lb) 04/07/2020 9:20 AM ELECTRONICS DEPARTMENT MANAGER Height 154.9 cm (5' 1) 04/07/2020 9:20 AM ELECTRONICS DEPARTMENT MANAGER Body Mass Index 37.22 04/07/2020 9:20 AM ELECTRONICS DEPARTMENT MANAGER Plan of Treatment Health Maintenance Due Date Last Done Comments Pneumococcal PPSV23/PCV13 65 + Years / Low and Medium Risk (2 of 3 - PCV20 or PCV21) 01/28/2021 01/29/2020 Influenza Vaccine (#1) 2024 Insurance [employer] [place] [address] Care Teams Laser Machine Operator Relationship Specialty Start Date End Date Tra Sanchez DO [address] [place] [address] PCP - General Internal Medicine 11/20/19
--- OUTSIDE RECORDS SUMMARY | 2024-12-15 08:24 | XMS_ITS | Clinical Summary ---
Author Organization [facility] Address [address] [address] [address] [place] [id number] Care Team Providers Care Supervisor Soldering Name Role Phone Tra Sanchez DO Primary Care Provider [phone] Allergies No known active allergies Medications raNITIdine [...] often do you attend chur ch or zoroastrianism services? Never 09/04/2018 Do you belong to any clubs o r organizations such as presybeterian groups, unions, fraternal or athletic groups, or [...] series) 08/28/2026 Medical Devices Implanted Type Area Checker And Packer Device Identifier Shelf Expiration Date Model / Serial / Lot Cage 7-13, 10x22 Implanted:Qty: 1 on 09/04/2018 by Jaime Vee MD at [facility] N/A: Spine Lumbar [employer] 193.101 / / Description:ENTERED BY RN [id number] Cage 7-13, 8x22 Implanted:Qty: 1 on 09/04/2018 by Jaime Vee MD at [facility] N/A: Spine Lumbar [employer] 193.001 / / Description:ENTERED BY RN [id number] Hemostatic Surgifoam 1gm 1977 Sn/A Implanted:Qty: 1 on 09/04/2018 by Jaime Vee MD at [facility] Hemostatic N/A: Spine Lumbar J[employer]J- [employer] 06/17/20201977 / N/A / [id number] Description:REQ#[id number] REQ#[id number] Francisco Cdh Spn Ccm Cap 4.16c89py [id number] - Ssterilized On 08/22/2018 Implanted:Qty: 2 on 09/04/2018 by Jaime Vee MD at [facility] [place] N/A: Spine Lumbar [employer]- SOFAMOR DANEK [id number] / STERILIZED ON 08/22/2018 / LOAD #[id number] Screw Solera Karen Ma [id number] - Ssterilized On 08/22/2018 Implanted:Qty: 1 on 09/04/2018 by Jaime Vee MD at [facility] Screw N/A: Spine Lumbar [employer]- SOFAMOR [employer]ANEK [id number] / STERILIZED ON 08/22/2018 / LOAD #[id number] Screw Solera Karen Ma [id number] - Ssterilized On 08/22/2018 Implanted:Qty: 1 on 09/04/2018 by Jaime Vee MD at [facility] N/A: Spine Lumbar [employer]- SOFAMOR DANEK [id number] / STERILIZED ON 08/22/2018 / LOAD #[id number] Screw Solera Karen Ma 4.31r16zq [id number] - Ssterilized On 08/22/2018 Implanted:Qty: 2 on 09/04/2018 by Jaime Vee MD at [facility] N/A: Spine Lumbar [employer] SOFAMOR [employer]ANEK [id number] / STERILIZED ON 08/22/2018 / LOAD #[id number] Set Screw Solera Perc 4.75mm [id number] - Ssterilized On 08/22/2018 Implanted:Qty: 5 on 09/04/2018 by Jaime Vee MD at [facility] N/A: Spine Lumbar [employer]- SOFAMOR DANEK [id number] / STERILIZED ON 08/22/2018 / LOAD #[id number] Screw Solera Karen Ma 7.5x30mm Implanted:Qty: 1 on 09/04/2018 by Jaime Vee MD at [facility] N/A: Spine Lumbar [employer] [id number] / STERILIZED ON 08/22/2018 / LOAD #[id number] Description:ENTERED BY KELSY [id number] Infuse Protein Kit [id number] - Sn/A Implanted:Qty: 1 on 09/04/2018 by Jaime Vee MD at [facility] Tissue N/A: Spine Lumbar [employer] SOFAMOR [employer]ANEK 11/30/2020 [id number] / N/A / [id number] [place] [address] [facility] Address: [facility] [address] [address] RX MEDIMPACT Member Subscriber Plan / Payer (Ef fective 2016-Present) Name:Sarika Arora Relation to Subscriber:Self Name:Sarika Arora Payer ID:Not on file Group ID:[id number] Type:RX Medicare Part D Address: [place] [place] RX LIRA PLANS (INTERNAL) [facility] Plans Advance Directives For more information, please contact: [phone] * Full Code (Latest Code Status on File) Date Activated Date Inactivated Comments 09/04/2018 3:26 PM 09/07/2018 4:57 PM Care Teams Supervisor Soldering Relationship Specialty Start Date End Date Tra Sanchez DO PCP - General Internal Medicine 07/25/18
--- NOTE | 2024-12-15 17:20 | P.PCNPFT_ITS ---
PFT Procedure Performed PFT Procedure Performed Plethysmography (Lung Vol) Diffusing Cap (DLCO) Flow Vol Loop Spirometry w/o Bronchodil PFT Interpretation This is a pulmonary function test with spirometry, plethysmography and diffusing capacity. The test was performed and results interpreted in accordance with the 2019 and 2005 ATS/ERS Task Force guidelines respectively using the Global Lung Function Initiative-2012 reference equations. Patient demonstrated good effort and cooperation. Reproducibility criteria were met. The quality of the spirometry maneuver was Grade A. Findings: Spirometry: The contour the inspiratory and expiratory flow tracing are normal. The FVC is 2.11 L, 89% predicted. The FEV1 is 1.71 L, 93% predicted. the FEV1: FVC ratio is 81%. Plethysmography: The total lung capacity is 3.20 L, 72% predicted. The functional residual capacity is 0.65 L, 26% predicted. The residual volume is 0.63 L, 31% predicted. Diffusing capacity: The diffusing capacity unadjusted for hemoglobin and carboxyhemoglobin is 9.7, 52% predicted. The diffusing capacity adjusted for al veolar volume is 3.40, 77% predicted. Impression: There is a mild restrictive ventilatory abnormality with a normal FEV1. The spirometry is normal without evidence of an obstructive abnormality. The diffusing capacity unadjusted for hemoglobin and carboxyhemoglobin is moderately decreased and normalizes when adjusted for alveolar volume. There are no prior studies for comparison
== END 2024-12-15 08:00 | disposition home or self-care (01) ==
PROVIDERS: PCP Nurse Practitioner; Visit Provider Internal Medicine
DX: R06.09 Other forms of dyspnea (principal); J98.4 Other disorders of lung
CPT/HCPCS: 94375; 94726; 94729

== ENCOUNTER 2025-01-06 11:00 | Outpatient (RCR) | payer OTHER, SELFPAY ==
--- NOTE | 2024-12-02 11:56 | OPREHPOC ---
Outpatient Therapy Plan of Care This is a Multidisciplinary Plan of Care that may contain components documented by all disciplines (PT, OT, and ST.) PT Problem 1 PT Problem #1 Knowledge Deficit PT Goal 1 Goal / Goal Update [place] with HEP Target Visit 4 PT Goal 2 Goal / Goal Update Require postural cueing less than 25% of the time Target Visit 4 PT Problem 2 PT Problem #2 Impaired Range of Motion PT Goal 1 Goal / Goal Update 1. Improve paz cervical rotation motion to 60 degrees 2. Improve cervical extension to 35 degrees without increased pain Target Visit 8 PT Goal 2 Goal / Goal Update 1. Improve R shoulder flexion ROM to 160 degrees to improve functional reach 2. Improve R shoulder external rotation 80 degrees to improve functional self care Target Visit 8 PT Problem 3 PT Problem #3 Impaired Strength PT Goal 1 Goal / Goal Update 1. improve gross R shoulder strength to 4+5 to improve object lifting and ADL performance Target Visit 8
--- NOTE | 2024-12-02 11:56 | PTOPEVAL1 ---
Assessment and note entered by Drew Mann, PT Evaluation Information Assessment Status Evaluation ICD-10 Condition Codes (PT) Cervicalgia M54.2,Pain in right shoulder M25.511 Onset 2022 Subjective Information Reports that she has had issues with both the neck and shoulder for a few years now. 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 She wakes up with pain and tries to monitor it withy Tylenol. Majority of her pain is activity based but she has pain radiating into her hands at rest as well. Denies any pain on her left side. She had a steroid pack which did not seem to help but she was offered an injection as well. Reported Pain Level Pain Score 5: Self Report Assessment PT Clinical Summary Patient presents with indication of both cervical stenosis and shoulder OA limiting both cervical and shoulder mobilization. Patient will benefit form skilled therapy to address these deficits to improve postural stability, facet mobilization, and functional use of dominant shoulder. Needs consistent postural reinforcement with exercise. Plan of Care Interventions Hot Pack/Cold Pack,Manual Therapy,Neuro Re- education,Therapeutic Activities,Therapeutic Exercise PT Services Indicated Yes Treatment Frequency and 1x.week for 6 visits Duration These treatments will address the objective and functional deficits as defined above. The patient will be advanced safely and appropriately in order for the patient to progress towards his/her prior level of function. Additional exercises will be introduced and as well as a comprehensive home exercise program upon discharge, if needed, ?to ensure carryover of functional gains achieved in the clinic. This treatment plan has been reviewed and agreement upon by the patient.
--- NOTE | 2025-01-06 11:51 | OPREHPOC ---
Outpatient Therapy Plan of Care This is a Multidisciplinary Plan of Care that may contain components documented by all disciplines (PT, OT, and ST.) PT Problem 1 PT Problem #1 Knowledge Deficit PT Goal 1 Goal / Goal Update [place] with HEP Target Visit 4 Progress Met PT Goal 2 Goal / Goal Update Require postural cueing less than 25% of the time Target Visit 4 Progress Met PT Problem 2 PT Problem #2 Impaired Range of Motion PT Goal 1 Goal / Goal Update 1. Improve paz cervical rotation motion to 60 degrees 2. Improve cervical extension to 35 degrees without increased pain Target Visit 8 Progress Partially Met PT Goal 2 Goal / Goal Update 1. Improve R shoulder flexion ROM to 160 degrees to improve functional reach 2. Improve R shoulder external rotation 80 degrees to improve functional self care Target Visit 8 Progress Met PT Problem 3 PT Problem #3 Impaired Strength PT Goal 1 Goal / Goal Update 1. improve gross R shoulder strength to 4+5 to improve object lifting and ADL performance Target Visit 8 Progress Not Met
--- NOTE | 2025-01-06 11:51 | PTOPDC ---
Assessment and note entered by Drew Mann, PT Evaluation Information Assessment Status Discharge ICD-10 Condition Codes (PT) Cervicalgia M54.2,Pain in right shoulder M25.511 Onset 2022 Subjective Information Reports that the neck is doing much better. She has not however seen much improvement with the shoulder issue at this time. She received an injection and has not had much pain relief from it . Reported Pain Level Pain Score 3: Self Report Assessment PT Clinical Summary Patient has seen minor improvement in cervical mobility and significant improvement in shoulder mobility. This has not however translated to improved pain levels, even with injection. Patient suitable for discharge at this time to [facility]. Plan of Care PT Services Indicated Yes
== END 2025-01-07 10:02 | disposition home or self-care (01) ==
LOC: ANHGOSHPT 11:00
PROVIDERS: PCP Nurse Practitioner; Visit Provider Orthopaedic Surgery
DX: M54.2 Cervicalgia (principal); M19.011 Primary osteoarthritis, right shoulder; M75.100 Unspecified rotator cuff tear or rupture of unspecified shoulder, not specified as traumatic
CPT/HCPCS: 97014; 97110; 97140; 97161; 97530; G0283

== ENCOUNTER 2025-01-27 12:13 | Outpatient (CLI) | payer OTHER, SELFPAY ==
[2025-01-27 12:46] LABS: Add Urine Microscopic? YES; Appearance Urine Clear (Clear); Glucose Urine UA Negative (Negative); Leukocyte Esterase Ur 2+ LEU/UL (Negative); Nitrate Urine Negative (Negative); Non Pathogenic Casts 0-2; Specific Grav Ur 1.020 (1.001-1.035)
--- OUTSIDE RECORDS SUMMARY | 2025-01-27 14:03 | XMS_ITS | Clinical Summary ---
Author Organization [facility] Address [address] [facility] [address] [place] [phone] Care Team Providers Care Plodder Operator Name Role Phone Tra Sanchez DO Primary Care Provider [phone] Allergies No known active allergies Medications raNITIdine [...] often do you attend chur ch or sabianist services? Never 09/04/2018 Do you belong to any clubs o r organizations such as temple groups, unions, fraternal or athletic groups, or [...] series) 08/28/2026 Medical Devices Implanted Type Area Undergraduate Intern Device Identifier Shelf Expiration Date Model / Serial / Lot Cage 7-13, 10x22 Implanted:Qty: 1 on 09/04/2018 by Jaime Vee MD at [facility] N/A: Spine Lumbar [employer] 193.101 / / Description:ENTERED BY RN [id number] Cage 7-13, 8x22 Implanted:Qty: 1 on 09/04/2018 by Jaime Vee MD at [facility] N/A: Spine Lumbar [employer] 193.001 / / Description:ENTERED BY RN [id number] Hemostatic Surgifoam 1gm 1977 Sn/A Implanted:Qty: 1 on 09/04/2018 by Jaime Vee MD at [facility] Hemostatic N/A: Spine Lumbar J[employer]J- [employer] 06/17/20201977 / N/A / [id number] Description:REQ#[id number] REQ#[id number] Francisco Cdh Spn Ccm Cap 4.45w04gu [id number] - Ssterilized On 08/22/2018 Implanted:Qty: 2 on 09/04/2018 by Jaime Vee MD at [facility] [place] N/A: Spine Lumbar [employer]- SOFAMOR [employer]ANEK [id number] / STERILIZED ON 08/22/2018 / LOAD #[id number] Screw Solera Karen Ma [id number] - Ssterilized On 08/22/2018 Implanted:Qty: 1 on 09/04/2018 by Jaime Vee MD at [facility] Screw N/A: Spine Lumbar [employer]- SOFAMOR [employer]ANEK [id number] / STERILIZED ON 08/22/2018 / LOAD #[id number] Screw Solera Karen Ma 4.67j43rq [id number] - Ssterilized On 08/22/2018 Implanted:Qty: 1 on 09/04/2018 by Jaime Vee MD at [facility] N/A: Spine Lumbar [employer]- SOFAMOR DANEK [id number] / STERILIZED ON 08/22/2018 / LOAD #[id number] Screw Solera Karen Ma 4.59m88fp [id number] - Ssterilized On 08/22/2018 Implanted:Qty: 2 on 09/04/2018 by Jaime Vee MD at [facility] N/A: Spine Lumbar [employer]- SOFAMOR [employer]ANEK [id number] / STERILIZED ON 08/22/2018 / LOAD #[id number] Set Screw Solera Perc 4.75mm [id number] - Ssterilized On 08/22/2018 Implanted:Qty: 5 on 09/04/2018 by Jaime Vee MD at [facility] N/A: Spine Lumbar [employer] SOFAMOR [employer]ANEK [id number] / STERILIZED ON 08/22/2018 / LOAD #[id number] Screw Solera Karen Ma 7.5x30mm Implanted:Qty: 1 on 09/04/2018 by Jaime Vee MD at [facility] N/A: Spine Lumbar [employer] [id number] / STERILIZED ON 08/22/2018 / LOAD #[id number] Description:ENTERED BY KELSY [id number] Infuse Protein Kit [id number] - Sn/A Implanted:Qty: 1 on 09/04/2018 by Jaime Vee MD at [facility] Tissue N/A: Spine Lumbar [employer] SOFAMOR [employer]ANEK 11/30/2020 [id number] / N/A / [id number] [place] [address] [place] [address] [facility] Address: [facility] [address] [address] RX MEDIMPACT Member Subscriber Plan / Payer (Ef fective 2016-Present) Name:Sarika Arora Relation to Subscriber:Self Name:Sarika Arora Payer ID:Not on file Group ID:[id number] Type:RX Medicare Part D Address: [employer] [place] RX LIRA PLANS (INTERNAL) [facility] Plans Advance Directives For more information, please contact: [phone] * Full Code (Latest Code Status on File) Date Activated Date Inactivated Comments 09/04/2018 3:26 PM 09/07/2018 4:57 PM Care Teams Plodder Operator Relationship Specialty Start Date End Date Tra Sanchez DO PCP - General Internal Medicine 07/25/18
--- OUTSIDE RECORDS SUMMARY | 2025-01-27 14:03 | XMS_ITS | Clinical Summary ---
Author Organization [facility] Address [address] [place] [address] Phone Care Team Providers Care Online Content Coordinator Name Role Phone Tra Sanchez DO Primary Care Provider [phone] Allergies No known active allergies Medications cholecalciferol [...] Comments Blood Pressure 118/70 04/07/2020 9:20 AM ACCIDENT REPORT CLERK Pulse 60 04/07/2020 9:20 AM ACCIDENT REPORT CLERK Temperature 34.8 C (94.7 F) 04/07/2020 9:20 AM ACCIDENT REPORT CLERK Respiratory Rate - - Oxygen Saturation - - Inhaled Oxygen Concentration - - Weight 89.4 kg (197 lb) 04/07/2020 9:20 AM ACCIDENT REPORT CLERK Height 154.9 cm (5' 1) 04/07/2020 9:20 AM ACCIDENT REPORT CLERK Body Mass Index 37.22 04/07/2020 9:20 AM ACCIDENT REPORT CLERK Plan of Treatment Health Maintenance Due Date Last Done Comments Pneumococcal PPSV23/PCV13 65 + Years / Low and Medium Risk (2 of 3 - PCV20 or PCV21) 01/28/2021 01/29/2020 Influenza Vaccine (#1) 2024 Insurance [employer] HMO Care Teams Online Content Coordinator Relationship Specialty Start Date End Date Tra Sanchez DO [address] [place] [address] PCP - General Internal Medicine 11/20/19
== END 2025-01-27 12:14 | disposition home or self-care (01) ==
PROVIDERS: PCP Nurse Practitioner; Visit Provider Nurse Practitioner
DX: R39.9 Unspecified symptoms and signs involving the genitourinary system (principal)
CPT/HCPCS: 81001; 87077; 87086; 87186

== ENCOUNTER 2025-02-17 08:13 | Outpatient (CLI) | payer OTHER, SELFPAY ==
[2025-02-17 09:01] LABS: Hematocrit 42.0 % (37.0-47.0); Hemoglobin 13.6 g/dL (12.0-15.0); Immature Granulocyte Percent A 0.3 % (0-0.5); Lymphocytes Absolute Auto 1.78 K/mm3 (0.9-3.2); Mean Corpuscular HGB Conc 32.4 g/dl (32-36); Mean Corpuscular Hemoglobin 29.1 pg (26-34); Mean Corpuscular Volume 89.7 fl (80-100); Nucleated Red Blood Cells Absolute Auto 0.000 K/mm3 (0.0-0.012); Nucleated Red Blood Cells Perc 0.0 % (0.0-0.2); Platelet Count Result 295 k/mm3 (150-375); Red Blood Count 4.68 M/mm3 (4.2-5.4); White Blood Count 6.6 K/mm3 (4.5-10.0)
[2025-02-17 09:20] LABS: Hemoglobin A1C 5.7 % (<5.7)
[2025-02-17 09:23] LABS: Alanine Aminotransferase 21 U/L (6-35); Albumin Level 4.1 g/dL (3.5-5.1); Alkaline Phosphatase 96 U/L (38-126); Anion Gap 9 mmol/L (4-12); Aspartate Amino Transferase 23 U/L (14-36); Bilirubin,Total 0.6 mg/dL (0.2-1.3); Blood Urea Nitrogen 12 mg/dL (7-17); Calcium 8.6 mg/dL (8.4-10.2); Carbon Dioxide 27 mmol/L (22-30); Chloride 104 mmol/L (98-107); Cholesterol 125 mg/dL (0-200); Estimated Glomerular Filt Rate > 60; Glucose 106 mg/dL (65-110); HDL Direct 41 mg/dL; Potassium 3.9 mmol/L (3.4-5.0); Sodium 140 mmol/L (137-145); Total Protein 6.9 g/dL (6.3-8.2); Triglycerides 138 mg/dL (<150)
== END 2025-02-17 08:14 | disposition home or self-care (01) ==
LOC: ANHLAB 08:15
PROVIDERS: PCP Nurse Practitioner; Visit Provider Internal Medicine
DX: E55.9 Vitamin D deficiency, unspecified (principal); E78.5 Hyperlipidemia, unspecified; I10 Essential (primary) hypertension; R73.02 Impaired glucose tolerance (oral)
CPT/HCPCS: 36415; 80053; 80061; 82306; 83036; 85025

== ENCOUNTER 2025-03-12 08:49 | Outpatient (CLI) | payer OTHER, SELFPAY ==
--- NOTE | ~2025-03-12 | US_ITS ---
ULTRASOUND ABDOMEN LIMITED (RIGHT UPPER QUADRANT) Clinical History: R10.11 - Right upper quadrant pain Comparison: None Technique: Right upper quadrant sonography Findings: Liver: Normal size. Normal echotexture. No intrahepatic biliary ductal dilatation. Normal hepatopedal flow main portal vein. Common Duct: Normal caliber. 4 mm. Gallbladder: No stones. No wall thickening. No pericholecystic fluid. Pancreas: Unremarkable. IMPRESSION: 1. No acute findings. Reviewed, dictated and finalized at location R. NE SERVICE REPAIRER IMPRESSION: 1. No acute findings.
--- NOTE | 2025-03-12 14:46 | ECHO_ITS ---
Patient Info Name: Sarika Arora Age: 74 years : 1950 Gender: Female Ht: 60 in Wt: 199 lbs BSA: 2.00 m2 HR: 77 bpm BP: 137 / 79 mmHg Technical Quality: Fair Exam Date: 03/12/2025 2:53 PM Patient Status: O Admit Date: 03/12/2025 Exam Type: CA echo doppler color flow Complete two-dimensional, color flow and Doppler transthoracic echocardiogram is performed. Staff Referring Physician: Tra Sanchez DO Geotechnical Department Manager: Jessica Lewis Attending Provider: Tra Sanchez DO Summary 1. Complete two-dimensional, color flow and Doppler transthoracic echocardiogram is performed. 2. Left ventricular chamber dimension is normal. 3. Left ventricular systolic function is normal, estimated at 60-65. 4. The left ventricular diastolic function is grade I diastolic dysfunction. 5. E/e' 9 is minimally elevated. 6. There is trace mitral valve regurgitation. 7. Mild pulmonary hypertension, estimated pulmonary arterial systolic pressure is 49 mmHg. Left Ventricle E/e' 9 is minimally elevated. Left ventricular chamber dimension is normal. Left ventricular systolic function is normal, estimated at 60-65. The left ventricular diastolic function is grade I diastolic dysfunction. Right Ventricle Right ventricular chamber dimension is normal. Right ventricular systolic function is normal and with normal TAPSE 1.9 cm. Left Atria Left atrial chamber dimension is normal. Right Atria Right atrial chamber dimension is normal. Aortic Valve The aortic valve is trileaflet. There is no aortic valve stenosis. There is no aortic valve regurgitation. Pulmonic Valve There is no pulmonic regurgitation. Mitral Valve There is no mitral valve stenosis. There is trace mitral valve regurgitation. Tricuspid Valve There is no tricuspid valve regurgitation. Mild pulmonary hypertension, estimated pulmonary arterial systolic pressure is 49 mmHg. Pericardium/Pleural There is no pericardial effusion. Inferior Vena Cava Normal inferior vena cava with >50% collapse upon inspiration consistent with normal right atrial pressure, 5 mmHg. Aorta The aortic root size at the sinus of Valsalva is normal. Left Ventricular Outflow Tract Name Value Normal LVOT 2D LVOT Diameter 2.2 cm LVOT Doppler LVOT Peak Velocity 101 cm/s LVOT Peak Gradient 4 mmHg LVOT Mean Gradient 2 mmHg LVOT VTI 19 cm LVOT VTI/AV VTI Ratio 1.0 LVOT Stroke Volume 70 ml LVOT CO 4.6 l/min LVOT CI 2.3 l/min/m2 Pulmonic Valve Name Value Normal RVOT Doppler RVOT Peak Velocity 71 cm/s RVOT Peak Gradient 2 mmHg PV Doppler PV Peak Velocity 80 cm/s PV Peak Gradient 3 mmHg Mitral Valve Name Value Normal MV Diastolic Function MV E Peak Velocity 77 cm/s MV A Peak Velocity 82 cm/s MV E/A 0.9 MV Decel Time (PW) 196 ms Tricuspid Valve Name Value Normal TV Regurgitation Doppler TR Peak Velocity 331 cm/s TR Peak Gradient 44 mmHg Estimated PAP/RSVP RA Pressure 5 mmHg <=5 PA Systolic Pressure 49 mmHg <36 RV Systolic Pressure 49 mmHg <36 TV Annular TDI TV Lateral Aileen s' Velocity 8.8 cm/s >=9.5 Aorta Name Value Normal Ascending Aorta Ao Root Diameter (MM) 3.2 cm Ao Root Diam Index (MM) 1.6 cm/m2 Aortic Valve Name Value Normal AV Doppler AV Peak Velocity 108 cm/s AV Peak Gradient 5 mmHg AV Mean Gradient 2 mmHg AV VTI 19 cm AV Area (Cont Eq VTI) 3.6 cm2 >=3.0 AV Area (Cont Eq Mariano) 3.5 cm2 AV DI (Mariano) 0.94 AV Regurgitation 2D LVOT Area 3.8 cm2 Ventricles Name Value Normal LV Dimensions 2D/MM LVOT Diameter 2.2 cm LV Fractional Shortening/Ejection Fraction 2D/MM LV Diastolic Volume (4C MOD) 48 ml LV EF (4C MOD) 61 % LV Diastolic Volume (2C MOD) 46 ml LV EF (2C MOD) 69 % LV Diastolic Volume (BP MOD) 47 ml 46-106 LV Diastolic Volume Index (BP MOD) 24 ml/m2 29-61 LV Systolic Volume (BP MOD) 17 ml 14-42 LV Systolic Volume Index (BP MOD) 8 ml/m2 8-24 LV EF (BP MOD) 64 % 54-74 LV Diastolic Length (4C) 7.5 cm LV Systolic Length (4C) 6.4 cm LV Stroke Volume (4C MOD) 29 ml Atria Name Value Normal LA Dimensions LA Dimension (MM) 4.7 cm 2.7-3.8 LA Volume (4C A-L) 43 ml LA Volume (BP A-L) 46 ml RA Dimensions RA Systolic Major [place] Length (4C) 5.1 cm 2.2-2.8 RA Area (4C) 13.9 cm2 <=18.0 Report Signatures
== END 2025-03-12 08:50 | disposition home or self-care (01) ==
LOC: ANHIMG 08:50
PROVIDERS: PCP Internal Medicine; Visit Provider Internal Medicine
DX: R06.09 Other forms of dyspnea (principal); I51.89 Other ill-defined heart diseases; I27.20 Pulmonary hypertension, unspecified; Z51.81 Encounter for therapeutic drug level monitoring
CPT/HCPCS: 76705; 93306